=== PATIENT | male | born 1935 | race Caucasian/White ===

== ENCOUNTER 2017-06-13 08:29 | Day surgery (SDC) | payer MEDICARE, OTHER ==
[~2017-06-13 08:29] MED LIST: Lactated Ringers 1,000 ML IV SCH; Lidocaine 1%/Sod Bicarbonate in NS 8.4% 1 ML Syringe PRN; Sodium Chloride 0.9% 10 ML Syringe FLUSH PRN
[2017-06-13] MEDS ORDERED: Propofol 200 MG/20 ML SDV ONE (09:19)
--- NOTE | 2017-06-13 09:29 | PCM.PREANE ---
Preanesthetic Assessment - Anesthesia/Transfusion/Family Hx Anesthesia History: Prior Anesthesia Without Reaction Family History of Anesthesia Reaction: No Transfusion History: No Prior Transfusion(s) Intubation History: Unknown - Review of Systems General: No Symptoms Cardiovascular: No Symptoms Gastrointestinal: No Symptoms Neurological: No Symptoms Other: Reports: Easy Bleeding (pt just fininshed last dose of lovenox yesturday 1100, BS 0700 122) - Physical Assessment NPO Status Date: 06/12/17 NPO Status Time: 20:00 Pulse: 74 O2 Sat by Pulse Oximetry: 96 Respiratory Rate: 16 Blood Pressure: 142/68 Temperature: 98.5 C Height: 1.73 m Weight: 99.337 kg ASA Class: 3 Mental Status: Alert & Oriented x3 Airway Class: Mallampati = 2 Dentition: Reports: Normal Dentition, Dentures (upper and lower) Thyro-Mental Finger Breadths: 3 Mouth Opening Finger Breadths: 3 ROM/Head Extension: Full Lungs: Clear to Auscultation, Normal Respiratory Effort Cardiovascular: Regular Rate, Murmurs - Allergies Allergies/Adverse Reactions: Allergies Allergy/AdvReac Type Severity Reaction Status Date / Time latex Allergy Unknown Cannot Verified 06/12/17 15:04 Remember adhesive Allergy Hives Verified 06/12/17 15:04 celecoxib Allergy Cannot Verified 06/12/17 15:04 Remember ramipril [From Altace] Allergy Itching Verified 06/12/17 15:04 rofecoxib [From Vioxx] Allergy Edema Verified 06/12/17 15:04 sertraline Allergy Cannot Verified 06/12/17 15:04 Remember simvastatin Allergy Edema Verified 06/12/17 15:04 chlordiazepoxide AdvReac Confusion Verified 06/12/17 15:04 clidinium [Clidinium] AdvReac Confusion Verified 06/12/17 15:04 pregabalin [From Lyrica] AdvReac Confusion Verified 06/12/17 15:04 - Anesthesia Plan Beta Nemesio: Metoprolol Med Last Dose Date: 06/12/17 Med Last Dose Time: 07:00 - Acknowledgements Anesthesia Type Planned: MAC Pt an Appropriate Candidate for the Planned Anesthesia: Yes Alternatives and Risks of Anesthesia Discussed w Pt/Guardian: Yes Pt/Guardian Understands and Agrees with Anesthesia Plan: Yes PreAnesthesia Questionnaire HEENT History: Reports: Cataract Other HEENT History: has glasses, wears dentures Cardiovascular History: Reports: Afib, Angina, CAD, Heart Murmur, High Cholesterol, Hypertension, [place], Pacemaker, Other (See Below) (AICD, hx MN 08/23, EKG 09/22 100% paced rhythm) Other Cardiovascular History: pad,chf Respiratory History: Reports: Sleep Apnea, SOB (with exertion) Other Respiratory History: does not use CPAP, has wheezing and history of pneumonia Gastrointestinal History: Reports: Colon Polyp, Hemorrhoids, PUD Other Gastrointestinal History: melanosis of coli, diverticulosis, small bowel obstruction, increased liver enzymes, chavis's esophagus Genitourinary History: Reports: BPH Other Genitourinary History: CHRONIC RENAL INSUFFICIENCY TABLE TOP TILE SETTER History: Reports: None Musculoskeletal History: Reports: Other (See Below) Other Musculoskeletal History: Right elbow olecranon bursitis, rotator cuff tear Neurological History: Reports: 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), Vertigo Psychiatric History: Reports: None Endocrine/Metabolic History: Reports: Diabetes, Type II (BS 122 at 0700) Hematologic History: Reports: None Immunologic History: Reports: None Oncologic (Cancer) History: Reports: Basal Cell Carcinoma Dermatologic History: Reports: Melanoma, Other (See Below) Other Dermatologic History: malignant skin neoplasm, basal cell carcinoma, actinic keratosis, junctional nevus, seborrheic keratosis, hemangioma - Past Surgical History HEENT Surgical History: Reports: Adenoidectomy, Cataract Surgery, Tonsillectomy Other HEENT Surgeries/Procedures: BILATERAL CATARACTS REMOVED, Cardiovascular Surgical History: Reports: AICD, Carotid Stents, Coronary Artery Bypass, Coronary Artery Stent, Pacer Other Cardiovascular Surgeries/Procedures: coronary stent placemement of RCA 02/1995. CABG 1995 (triple vessel). PTCA and stenting of LAD 10/15/03. PTCA with stenting (bare metal) to LAD 10/23/03. PTCA with drug eluding stent to LAD 12/01/03. cardiac catheterization (no intervention) 12/26/03. cardiac catheterization (no intervention) 09/18/05. cardiac catheterization (no intervention) 03/04/07. PTCA with drug eluding stent to LAD 06/16/10. PTCA with stenting (bare metal) to vein graft to R coronary artery 01/31/13. Coronary angioplasty proximal LAD in-stent restenosis with m synergy 09/11/16 GI Surgical History: Reports: Appendectomy, Colonoscopy, EGD Neurological Surgical History: Reports: Other (See Below) Other Neurological Surgeries/Procedures: PT REPORTS 2X BACK SURGERIES ONCE TO THORACIC, ONCE TO LUMBAR Musculoskeletal Surgical History: Reports: Shoulder Surgery Other Musculoskeletal Surgeries/Procedures:: bilateral rotator cuff tears and repairs (different times) Other Oncologic Surgeries/Procedures: MELANOMA OF BACK - EXCISED Dermatological Surgical History: Reports: Skin Biopsy - SUBSTANCE USE Smoking Status *Q: Former Smoker Tobacco Use Within Last Twelve Months: No Second Hand Smoke Exposure: No Days Per Week of Alcohol Use: 0 Recreational Drug Use History: No - HOME MEDS Home Medications: Home Meds Chromium Picolinate 200 mcg PO DAILY 06/27/15 [History] Digoxin [Lanoxin] 125 mcg PO DAILY 06/27/15 [History] Diltiazem HCl [Diltiazem 24Hr ER] 240 mg PO DAILY 06/27/15 [History] Furosemide [Lasix] 40 mg PO DAILY 06/27/15 [History] Glimepiride [Amaryl] 4 mg PO DAILY 06/27/15 [History] Insulin Glarg,Human.Rec.Analog [LantUS Solostar] 75 units SUBCUT DAILY 06/27/15 [History] Metoprolol Succinate [Toprol XL] 100 mg PO BID 06/27/15 [History] Omeprazole 20 mg PO BID 06/27/15 [History] Cholecalciferol (Vitamin D3) [Vitamin D3] 1,000 unit PO DAILY 02/25/16 [History] Flaxseed Oil [Flaxseed] 1,000 mg PO DAILY 09/08/16 [History] Loratadine [Claritin] 10 mg PO DAILY 09/08/16 [History] Nitroglycerin [Nitrostat] 0.4 mg SL Q5M PRN 09/08/16 [History] Warfarin [Coumadin] 5 mg PO MO 09/08/16 [History] Antiivia 2 tab PO DAILY 06/12/17 [History] Clopidogrel Bisulfate [Plavix] 75 mg PO DAILY 06/12/17 [History] Cyanocobalamin (Vitamin B-12) [Vitamin B-12] 1,000 mcg PO DAILY 06/12/17 [ History] Ferrous Sulfate [Iron] 325 mg PO DAILY 06/12/17 [History] Isosorbide Mononitrate [Imdur] 60 mg PO DAILY 06/12/17 [History] Pyridoxine HCl [Vitamin B-6] 100 mg PO DAILY 06/12/17 [History] Terazosin HCl [Terazosin] 5 mg PO QAM 06/12/17 [History] Terazosin HCl [Terazosin] 10 mg PO QPM 06/12/17 [History] Turmeric Root Extract [Turmeric] 500 mg PO DAILY 06/12/17 [History] Valsartan 160 mg PO DAILY 06/12/17 [History] Warfarin [Coumadin] 2.5 mg PO SUTUWETHFRSA 06/12/17 [History] atorvaSTATin [Lipitor] 40 mg PO DAILY 06/12/17 [History] - CURRENT (IN HOUSE) MEDS Current Meds: Current Medications Lactated Ringer's (Ringers, Lactated) 1,000 mls @ 125 mls/hr IV ASDIRECTED REAL Stop: 06/13/17 23:00 Last Admin: 06/13/17 09:00 Dose: 125 mls/hr Lidocaine/Sodium Bicarbonate (Buffered Lidocaine 1% In Ns 8.4%) 0.25 ml .XX ONETIME PRN PRN Reason: Prior to IV Start Stop: 06/13/17 18:00 Last Admin: 06/13/17 08:59 Dose: 0.25 ml Sodium Chloride (Saline Flush) 10 ml FLUSH ASDIRECTED PRN PRN Reason: Keep Vein Open Stop: 06/13/17 18:00 Discontinued Medications Propofol (Diprivan 20 Ml) Confirm Administered Dose 200 mg .ROUTE .STK-MED ONE Stop: 06/13/17 09:20
--- NOTE | 2017-06-13 10:02 | PCM48HPAN ---
Post Anesthesia Note - EVALUATION WITHIN 48HRS OF ANESTHETIC Vital Signs in Normal Range: Yes Patient Participated in Evaluation: Yes Respiratory Function Stable: Yes Airway Patent: Yes Cardiovascular Function Stable: Yes Hydration Status Stable: Yes Pain Control Satisfactory: Yes Nausea and Vomiting Control Satisfactory: Yes Mental Status Recovered: Yes - COMMENTS/OBSERVATIONS Free Text/Narrative:: pt resting quietly, VVS, family at bedside, no c/o
[2017-06-13 10:04] VITALS: BP 126/66
--- NOTE | 2017-06-13 10:13 | PCM.OPNOTE ---
- General Post-Op/Procedure Note Date of Surgery/Procedure: 06/13/17 Operative Procedure(s): Esophagogastroduodenoscopy with cold forceps biopsy of a polypoid antral mass lesion Findings: 2 cm polypoid villous-like mass lesion located in the prepyloric area, no ulcers were seen. There was no endoscopic Knox's change. Pre Op Diagnosis: History of gastric polyps and Knox's change Post-Op Diagnosis: 1. Antral polyp. 2. Endoscopically normal esophagus Anesthesia Technique: MAC, Moderate Sedation Primary Surgeon: Freddie Pepper Pathology: Biopsy 2 of the antrum. EBL in mLs: 1 Complications: None Condition: Good Free Text/Narrative:: After adequate IV sedation and analgesia was obtained with monitoring the patient was placed on his left side. Through a bite-block lubricated upper endoscope was easily inserted into the esophagus and advanced under direct vision to the stomach. Air was given here followed by advancement towards the antrum. Within the distal antrum just proximal to the pyloric opening there was a villoous like polypoid mass structure about 2 x 2 cm in diameter. The scope was then passed through the pylorus into the second part of the duodenum. The second and first parts of the duodenum were endoscopically normal with no mass lesions or inflammatory changes seen. The scope was then withdrawn into the antrum where 2 biopsies were performed for histologic evaluation. In the retroflexed view the fundus and cardiac regions were normal. There was no hiatal hernia. There were no additional polyps seen in the body of the stomach. The rugal folds were grossly normal. Gastric motility was grossly normal as well. I withdrew the scope to the GE junction which was sharp. There was no endoscopic evidence of Knox's epithelium. The body of the esophagus was unremarkable. The vocal cords were briefly visualized with intubation and extubation and were grossly normal. Liquor Store Manager photographs were taken for the patient and for the record. There were no procedural complications.
== END 2017-06-13 10:30 | disposition home or self-care (01) ==
LOC: JD.SDS 08:29
PROVIDERS: ATTEND Surgery
DX: K31.7 Polyp of stomach and duodenum (principal); N40.0 Benign prostatic hyperplasia without lower urinary tract symptoms; I25.10 Atherosclerotic heart disease of native coronary artery without angina pectoris; I48.91 Unspecified atrial fibrillation; I25.2 Old myocardial infarction; E78.00 Pure hypercholesterolemia, unspecified; G47.30 Sleep apnea, unspecified; I13.0 Hypertensive heart and chronic kidney disease with heart failure and stage 1 through stage 4 chronic kidney disease, or unspecified chronic kidney disease; E11.22 Type 2 diabetes mellitus with diabetic chronic kidney disease; N18.9 Chronic kidney disease, unspecified; I50.9 Heart failure, unspecified; Z79.01 Long term (current) use of anticoagulants; Z79.02 Long term (current) use of antithrombotics/antiplatelets; Z79.84 Long term (current) use of oral hypoglycemic drugs; Z79.4 Long term (current) use of insulin; Z79.899 Other long term (current) drug therapy; Z85.820 Personal history of malignant melanoma of skin; Z86.73 Personal history of transient ischemic attack (TIA), and cerebral infarction without residual deficits; Z95.810 Presence of automatic (implantable) cardiac defibrillator; Z95.1 Presence of aortocoronary bypass graft; Z95.5 Presence of coronary angioplasty implant and graft; Z98.41 Cataract extraction status, right eye; Z98.42 Cataract extraction status, left eye; Z90.49 Acquired absence of other specified parts of digestive tract; Z98.890 Other specified postprocedural states; Z88.6 Allergy status to analgesic agent; Z88.8 Allergy status to other drugs, medicaments and biological substances; Z91.040 Latex allergy status; Z91.048 Other nonmedicinal substance allergy status; Z86.010 Personal history of colon polyps; Z87.891 Personal history of nicotine dependence
CPT/HCPCS: 43239; 88305; J7120; 00740; J2704

== ENCOUNTER 2017-11-15 09:03 | Emergency (ER) | payer MEDICARE, OTHER ==
--- NOTE | 2017-11-15 09:34 | EDM.PDOC ---
ED HPI GENERAL MEDICAL PROBLEM - General Chief Complaint: Chest Pain Stated Complaint: CHEST PAIN Time Seen by Provider: 11/15/17 09:29 Source of Information: Reports: Patient History Limitations: Reports: No Limitations - History of Present Illness INITIAL COMMENTS - FREE TEXT/NARRATIVE: 82-year-old male presents to the ED at the request of [facility]. Patient went to the clinic this morning to have dermatology review of his skin lesion that was removed from his nose 6 months ago. He had to have skin grafting performed right lateral nasal alae for removal of a squamous cell carcinoma. He was worried about getting to his appointment this morning. Worried about oncoming snowstorm and whether the doctor would even get here from [place] etc. Usually the chest pain has gotten better after eating with burping and belching but this morning it was more stubborn and would not get better. He therefore elected to take a nitroglycerin tablet at about 7:45 and sat down for a period of time. He states the pain went away within 3-4 minutes. He therefore then proceeded onto the garage into the car and went to the clinic. However he mentioned that he had chest pain this morning and the nurses then referred him to the outpatient walk-in clinic at which case he was properly sent to the ED for further evaluation. He states he has very slight central chest discomfort now.. Unfortunately the patient has a pacemaker that places his heart ventricularly and therefore the ECG is useless in terms of looking for ischemic changes. He states otherwise he feels no worse than normal. He did indicate that they would see him after words if his heart checked out okay. Onset: Today Onset Date: 11/15/17 Onset Time: 07:30 Duration: Minutes: (Took a nitroglycerin tablet under his tongue and sat down afterwards as it struck his blood pressure severely in the past. States within 3 -4 minutes of taking the tablet which was about 7:45 his pain went away. It has not returned), Resolved Prior to Arrival Location: Reports: Chest (Central chest discomfort.) Quality: Reports: Ache, Pressure Improves with: Reports: Medication (Nitroglycerin tablet 1 to the pain went completely) Context: Reports: Other (These developing chest pain after eating every morning suggesting cardiac steal phenomenon.). Denies: Activity, Exercise, Sick Contact , Trauma Associated Symptoms: Reports: No Other Symptoms Treatments MEAT SELECTOR: Reports: Other (see below) (Nitroglycerin tablet 1.) Chest Pain Score (Numeric/FACES): 2 - Related Data Allergies Allergy/AdvReac Type Severity Reaction Status Date / Time latex Allergy Unknown Cannot Verified 11/15/17 09:43 Remember adhesive Allergy Hives Verified 11/15/17 09:43 celecoxib Allergy Cannot Verified 11/15/17 09:43 Remember clopidogrel Allergy Cannot Verified 11/15/17 09:43 Remember ramipril [From Altace] Allergy Itching Verified 11/15/17 09:43 rofecoxib [From Vioxx] Allergy Edema Verified 11/15/17 09:43 sertraline Allergy Cannot Verified 11/15/17 09:43 Remember simvastatin Allergy Edema Verified 11/15/17 09:43 valsartan Allergy Cannot Verified 11/15/17 09:43 Remember chlordiazepoxide AdvReac Confusion Verified 11/15/17 09:43 clidinium [Clidinium] AdvReac Confusion Verified 11/15/17 09:43 pregabalin [From Lyrica] AdvReac Confusion Verified 11/15/17 09:43 Home Meds: Home Meds Chromium Picolinate 200 mcg PO DAILY 06/27/15 [History] Digoxin [Lanoxin] 125 mcg PO DAILY 06/27/15 [History] Diltiazem HCl [Diltiazem 24Hr ER] 240 mg PO DAILY 06/27/15 [History] Furosemide [Lasix] 40 mg PO DAILY 06/27/15 [History] Glimepiride [Amaryl] 4 mg PO DAILY 06/27/15 [History] Insulin Glarg,Human.Rec.Analog [LantUS Solostar] 80 units SUBCUT DAILY 06/27/15 [History] Metoprolol Succinate [Toprol XL] 100 mg PO BID 06/27/15 [History] Omeprazole 20 mg PO BID 06/27/15 [History] Cholecalciferol (Vitamin D3) [Vitamin D3] 1,000 unit PO DAILY 02/25/16 [History] Flaxseed Oil [Flaxseed] 1,000 mg PO DAILY 09/08/16 [History] Loratadine [Claritin] 10 mg PO DAILY 09/08/16 [History] Nitroglycerin [Nitrostat] 0.4 mg SL Q5M PRN 09/08/16 [History] Warfarin [Coumadin] 5 mg PO MO 09/08/16 [History] Antiivia 2 tab PO DAILY 06/12/17 [History] Cyanocobalamin (Vitamin B-12) [Vitamin B-12] 500 mcg PO DAILY 06/12/17 [History] Isosorbide Mononitrate [Imdur] 60 mg PO DAILY 06/12/17 [History] Terazosin HCl [Terazosin] 5 mg PO QAM 06/12/17 [History] Valsartan 160 mg PO DAILY 06/12/17 [History] Warfarin [Coumadin] 2.5 mg PO SUTUWETHFRSA 06/12/17 [History] atorvaSTATin [Lipitor] 40 mg PO DAILY 06/12/17 [History] Multivit-Min/FA/Lutein/Zeaxant [Macular Vitamin Tablet] 1 tab PO DAILY 11/15/17 [History] Past Medical History HEENT History: Reports: Cataract Other HEENT History: has glasses, wears dentures Cardiovascular History: Reports: Afib, Angina, CAD (He believes his last stent was placed by Dr. Mayo at [facility] September 2016. Prior to that he believes stents were placed in 2012.), Heart Murmur, High Cholesterol, Hypertension, [place], Pacemaker, Other (See Below) Other Cardiovascular History: pad,chf Respiratory History: Reports: Sleep Apnea, SOB Other Respiratory History: does not use CPAP, has wheezing and history of pneumonia Gastrointestinal History: Reports: Colon Polyp, Hemorrhoids, PUD Other Gastrointestinal History: melanosis of coli, diverticulosis, small bowel obstruction, increased liver enzymes, chavis's esophagus Genitourinary History: Reports: BPH Other Genitourinary History: CHRONIC RENAL INSUFFICIENCY DAIRY SPECIALIST History: Reports: None Musculoskeletal History: Reports: Other (See Below) Other Musculoskeletal History: Right elbow olecranon bursitis, rotator cuff tear Neurological History: Reports: CVA, Vertigo Psychiatric History: Reports: None Endocrine/Metabolic History: Reports: Diabetes, Type II (He is controlled with oral medications and 80 units of Lantus subcutaneous every morning. He does not use any regular insulin with meals.) Hematologic History: Reports: None Immunologic History: Reports: None Oncologic (Cancer) History: Reports: Basal Cell Carcinoma Dermatologic History: Reports: Melanoma, Other (See Below) Other Dermatologic History: malignant skin neoplasm, basal cell carcinoma, actinic keratosis, junctional nevus, seborrheic keratosis, hemangioma - Past Surgical History HEENT Surgical History: Reports: Adenoidectomy, Cataract Surgery, Tonsillectomy Other HEENT Surgeries/Procedures: BILATERAL CATARACTS REMOVED, Cardiovascular Surgical History: Reports: AICD, Carotid Stents, Coronary Artery Bypass, Coronary Artery Stent, Pacer Other Cardiovascular Surgeries/Procedures: coronary stent placemement of RCA 02/1995. CABG 1995 (triple vessel). PTCA and stenting of LAD 10/15/03. PTCA with stenting (bare metal) to LAD 10/23/03. PTCA with drug eluding stent to LAD 12/01/03. cardiac catheterization (no intervention) 12/26/03. cardiac catheterization (no intervention) 09/18/05. cardiac catheterization (no intervention) 03/04/07. PTCA with drug eluding stent to LAD 06/16/10. PTCA with stenting (bare metal) to vein graft to R coronary artery 01/31/13. Coronary angioplasty proximal LAD in-stent restenosis with m synergy 09/11/16 GI Surgical History: Reports: Appendectomy, Colonoscopy, EGD Neurological Surgical History: Reports: Other (See Below) Other Neurological Surgeries/Procedures: PT REPORTS 2X BACK SURGERIES ONCE TO THORACIC, ONCE TO LUMBAR Musculoskeletal Surgical History: Reports: Shoulder Surgery Other Musculoskeletal Surgeries/Procedures:: bilateral rotator cuff tears and repairs (different times) Other Oncologic Surgeries/Procedures: MELANOMA OF BACK - EXCISED Dermatological Surgical History: Reports: Skin Biopsy Social & Family History - Tobacco Use Smoking Status *Q: Former Smoker Years of Tobacco use: 19 Packs/Tins Daily: 2 Used Tobacco, but Quit: Yes Month Tobacco Last Used: 15 Second Hand Smoke Exposure: No - Caffeine Use Caffeine Use: Reports: Coffee - Alcohol Use Days Per Week of Alcohol Use: 0 - Recreational Drug Use Recreational Drug Use: No Drug Use in Last 12 Months: No - Living Situation & Occupation Living situation: Reports: (His 83-year-old is at home and is developing quite significant dementia at this time. He is therefore doing most of care and cooking.), with Spouse Occupation: Retired ED ROS GENERAL - Review of Systems Review Of Systems: See Below Constitutional: Reports: Malaise, Weakness, Fatigue. Denies: Fever, Chills, Decreased Appetite, Weight Loss HEENT: Reports: Glasses, Hearing Loss Respiratory: Reports: Shortness of Breath (Has known COPD.), Cough. Denies: Hemoptysis (Occasional cough with sputum production) Cardiovascular: Reports: Chest Pain, Blood Pressure Problem (See history of present illness), Dyspnea on Exertion (Chronically in his lower extremities chronically.), Edema. Denies: Claudication ( usually well-controlled with current medications), Lightheadedness, Orthopnea Endocrine: Reports: Fatigue GI/Abdominal: Reports: Constipation : Reports: Frequency, Other (Known BPH. Nocturia usually 3) Musculoskeletal: Reports: Back Pain, Joint Pain (Knees hips and neck at times) Skin: Reports: Bruising (Bruises easily as he is on Coumadin.) Neurological: Reports: Dizziness, Difficulty Walking (Usually walks). Denies: Paresthesia, Tremors (Occasional dizziness.), Trouble Speaking Psychiatric: Reports: No Symptoms ( slowly with wide-based gait. Often uses a cane or walker.) Hematologic/Lymphatic: Reports: No Symptoms Immunologic: Reports: No Symptoms ED EXAM, GENERAL - Physical Exam Exam: See Below Exam Limited By: No Limitations General Appearance: Alert, WD/WN, No Apparent Distress Eye Exam: Bilateral Eye: Normal Inspection Head: Atraumatic, Normocephalic Neck: Normal Inspection, Supple, Non-Tender, Limited Range of Motion. No: Lymphadenopathy (L), Lymphadenopathy (R), Thyromegaly Respiratory/Chest: Lungs Clear, Respiratory Distress (Mild tachypnea at rest.), Decreased Breath Sounds (Decreased air into the lower 25% of lungs posteriorly.) Cardiovascular: Regular Rate, Rhythm (100% ventricular paced rhythm at 75/m.), No Gallop, No Murmur, No Rub. No: Normal Peripheral Pulses (No pulses are palpable in his feet due to edema) Peripheral Pulses: 0: Posterior Tibial (L), Posterior Tibial (R), Dorsalis Pedis (L), Dorsalis Pedis (R) GI/Abdominal: Other (Abdomen is quite protuberant and obese. Slightly tympanitic percussion in the upper abdomen compatible with aerophagia. No obvious organomegaly or masses were palpable.) Extremities: Pedal Edema Neurological: Alert (2+ pitting edema to mid tib-fib bilaterally), Oriented, CN II-XII Intact, Normal Cognition Psychiatric: Normal Affect, Normal Mood Skin Exam: Warm, Dry, Intact, Normal Color, No Rash EKG INTERPRETATION EKG Date: 11/15/17 Time: 09:13 Rhythm: Other (Ventricular paced rhythm) Rate (Beats/Min): 75 EKG Interpretation Comments: No further analysis attempted due to ventricular paced rhythm. Course - Vital Signs Last Recorded V/S: Last Vital Signs Temp 36.4 C 11/15/17 09:13 Pulse 75 11/15/17 09:13 Resp 22 H 11/15/17 09:13 BP Pulse Ox 95 11/15/17 09:13 - Orders/Labs/Meds Orders: Active Orders 24 hr Category Date Time Status EKG 12 Lead [EKG Documentation Completion] [] STAT Care 11/15/17 09:13 Active Oxygen Therapy [RC] ASDIRECTED Care 11/15/17 10:58 Active Furosemide [Lasix] Med 11/15/17 11:07 Once 40 mg IVPUSH NOW ONE Nitroglycerin/D5W [Nitroglycerin 25 MG/D5W 250 ML] Med 11/15/17 10:45 Active 25 mg in 250 ml IV ASDIRECTED Medication Orders Nitroglycerin/Dextrose (Nitroglycerin 25 Mg/D5w 250 Ml) 25 mg in 250 mls @ 6 mls/hr IV ASDIRECTED REAL PRN Reason: 10 MCG/MIN Last Admin: 11/15/17 10:51 Dose: 10 mcg/min, 6 mls/hr Labs: Laboratory Tests 11/15/17 11/15/17 11/15/17 Range/Units 09:45 09:45 09:45 WBC 7.09 (4.23-9.07) K/mm3 RBC 3.12 L (4.63-6.08) M/mm3 Hgb 9.2 L (13.7-17.5) gm/L Hct 29.3 L (40.1-51.0) % MCV 93.9 H (79.0-92.2) fl MCH 29.5 (25.7-32.2) pg MCHC 31.4 L (32.2-35.5) g/dl RDW Std Deviation 57.4 H (35.1-43.9) fL Plt Count 144 L (163-337) K/mm3 MPV 10.7 (9.4-12.3) fl Neutrophils % (Manual) 69 H (40-60) % Band Neutrophils % 0 (0-10) % Lymphocytes % (Manual) 28 (20-40) % Atypical Lymphs % 0 % Monocytes % (Manual) 3 (2-10) % Eosinophils % (Manual) 0 L (0.8-7.0) % Basophils % (Manual) 0 L (0.2-1.2) Platelet Estimate Adequate Polychromasia 1+ slight Poikilocytosis 1+ slight Anisocytosis 1+ slight Tear Drop Cells Few RBC Morph Comment Not Reportable PT (8.0-13.0) SECONDS INR Sodium 137 (136-145) mEq/L Potassium 4.6 (3.5-5.1) mEq/L Chloride 103 (98-107) mEq/L Carbon Dioxide 24 (21-32) mEq/L Anion Gap 14.6 (5-15) BUN 29 H (7-18) mg/dL Creatinine 1.5 H (0.7-1.3) mg/dL Est Cr Clr Drug Dosing 35.47 mL/min Estimated GFR (MDRD) 45 (>60) mL/min BUN/Creatinine Ratio 19.3 H (14-18) Glucose 372 H (83-115) mg/dL Calcium 9.0 (8.5-10.1) mg/dL Magnesium 2.0 (1.8-2.4) mg/dl Total Bilirubin 0.9 (0.2-1.0) mg/dL AST 33 (15-37) U/L ALT 28 (16-63) U/L Alkaline Phosphatase 101 (46-116) U/L CK-MB (CK-2) 4.3 H (0-3.6) ng/ml Troponin I 0.420 H* (0.00-0.056) ng/mL NT-Pro-B Natriuret Pep 2133 H (0-450) pg/mL Total Protein 6.8 (6.4-8.2) g/dl Albumin 3.5 (3.4-5.0) g/dl Globulin 3.3 gm/dL Albumin/Globulin Ratio 1.1 (1-2) Digoxin (0.9-2.0) ng/mL 11/15/17 11/15/17 Range/Units 09:45 09:45 WBC (4.23-9.07) K/mm3 RBC (4.63-6.08) M/mm3 Hgb (13.7-17.5) gm/L Hct (40.1-51.0) % MCV (79.0-92.2) fl MCH (25.7-32.2) pg MCHC (32.2-35.5) g/dl RDW Std Deviation (35.1-43.9) fL Plt Count (163-337) K/mm3 MPV (9.4-12.3) fl Neutrophils % (Manual) (40-60) % Band Neutrophils % (0-10) % Lymphocytes % (Manual) (20-40) % Atypical Lymphs % % Monocytes % (Manual) (2-10) % Eosinophils % (Manual) (0.8-7.0) % Basophils % (Manual) (0.2-1.2) Platelet Estimate Polychromasia Poikilocytosis Anisocytosis Tear Drop Cells RBC Morph Comment PT 26.4 H (8.0-13.0) SECONDS INR 2.30 Sodium (136-145) mEq/L Potassium (3.5-5.1) mEq/L Chloride (98-107) mEq/L Carbon Dioxide (21-32) mEq/L Anion Gap (5-15) BUN (7-18) mg/dL Creatinine (0.7-1.3) mg/dL Est Cr Clr Drug Dosing mL/min Estimated GFR (MDRD) (>60) mL/min BUN/Creatinine Ratio (14-18) Glucose (83-115) mg/dL Calcium (8.5-10.1) mg/dL Magnesium (1.8-2.4) mg/dl Total Bilirubin (0.2-1.0) mg/dL AST (15-37) U/L ALT (16-63) U/L Alkaline Phosphatase (46-116) U/L CK-MB (CK-2) (0-3.6) ng/ml Troponin I (0.00-0.056) ng/mL NT-Pro-B Natriuret Pep (0-450) pg/mL Total Protein (6.4-8.2) g/dl Albumin (3.4-5.0) g/dl Globulin gm/dL Albumin/Globulin Ratio (1-2) Digoxin 1.0 (0.9-2.0) ng/mL Meds: Medications Generic Name Dose Route Start Last Admin Trade Name Freq PRN Reason Stop Dose Admin Nitroglycerin/Dextrose 25 mg in 250 mls @ 6 mls/hr 11/15/17 10:45 11/15/17 10 :51 Nitroglycerin 25 Mg/D5w 250 Ml IV 10 mcg/min ASDIRECTED REAL 6 mls/hr 10 MCG/MIN Administration Discontinued Medications Generic Name Dose Route Start Last Admin Trade Name Freq PRN Reason Stop Dose Admin Aspirin 324 mg 11/15/17 10:56 Aspirin PO 11/15/17 10:57 ONETIME ONE Insulin Human Regular 10 unit 11/15/17 10:56 Humulin R SUBCUT 11/15/17 10:57 ONETIME ONE - Radiology Interpretation Free Text/Narrative:: 82-year-old male who is developing unstable angina but has a known severe coronary disease problem. Chest pain lasted a bit longer and was a little more intense this morning that he took a nitroglycerin tablet about 7:45 which relieved the pain completely within 3-4 minutes. He then proceeded to his proposed dermatology clinic visit at [place]. When he mentioned that he had chest pain earlier this morning base probably sent him to the walk-in clinic. Walking clinic probably send him to the ED. History suggests that he does have unstable angina with coronary steal syndrome as he develops mild chest discomfort after eating breakfast every morning. This is the first time that he' s taken a nitroglycerin tablet however. He does admit that he was more anxious about his appointment this morning getting there on time. Worried about the oncoming storm today. Wondered if the doctor would even get here from [place] etc. At any rate the nitroglycerin tablet with his chest pain away within 3-4 minutes. Usually lie sitting down for a period of time and burping or belching a couple of times and take his chest pain away. That did not work this morning. ECG shows ventricular paced rhythm at 75/m. Therefore labs and chest x-ray to one view will be done. At present he has only very slight anterior chest discomfort. - Re-Assessments/Exams Free Text/Narrative Re-Assessment/Exam: 11/15/17 10:05: Chest x-ray done portably reveals marked cardiomegaly. There is a diffuse vascular congestion pattern. No pleural effusions. Expect present left upper anterior chest. Labs are pending. 11/15/17 10:34 Labs are back. White count is 7.09 with 69% neutrophils and no bands reported. Hemoglobin is low at 9.2 with hematocrit of 29.3. MCV is minimally elevated at 93.9. Platelets are normal at 144,000. PT is 26.4 with an INR of 2.30 considered therapeutic. Sodium is 137 with a potassium of 4.6. Chloride is 103 with a bicarbonate 24. And a gap is 14.6. BUN is 29 with a creatinine of 1.5. Glucose is elevated at 372. Calcium is 9.0 magnesium is 2.0 bilirubin is 0.9. AST is 33. ALT is 20. Alk phosphatase 101. CK-MB fraction is 4.3 slightly elevated. Troponin I is elevated at 0.4-0. Normal MR lab is up to 0.056. Digoxin is therapeutic at 1.0. Plan we'll start on low-dose nitro drip at 10 mcg/m. blood pressure will be closely watched. It is currently 126 on 57. I'm still waiting for his BNP. He will be given aspirin 324 mg chewed. I will discuss with him his insulin requirements as his glucoses 372 at present. Further history obtained from the patient indicates that he was on Plavix up until October 22 when decision was made that this medication could be discontinued. He does take a baby aspirin usually in the evenings before bed. He states his sugars are usually between 110 150 therefore elevated blood sugar 372 was quite a surprise to him. This indicates a stress response likely from recent myocardial infarction. 11/15/17 10:57 spoke with hospitalist--Dr Masters at [facility] and he has accepted care. Patient will be transported to that facility by ground ambulance. I will also place him on low-dose oxygen 2 L/m since he sats 100 from 91-94% on room air. 11/15/17 11:07 magnesium level came back at 2.0. BNP is elevated at 2133. Will be given Lasix 40 mg intravenously. The elevated BNP correlates with diffuse vascular congestion identified on chest x-ray. Will give him 10 units of regular insulin subcutaneous for elevated glucose of 372. Departure - Departure Time of Disposition: 11:11 Disposition: DC/Tfer to Acute Hospital 02 Reason for Transfer *Q: Primary PCI Indicated Condition: Fair Clinical Impression: Chronic atrial fibrillation Acute myocardial infarction Qualifiers: Myocardial infarction ST status: non-ST elevation myocardial infarction Qualified Code(s): I21.4 - Non-ST elevation (NSTEMI) myocardial infarction Acute on chronic congestive heart failure Qualifiers: Congestive heart failure type: diastolic Qualified Code(s): I50.33 - Acute on chronic diastolic (congestive) heart failure Type 2 diabetes mellitus with hyperglycemia Qualifiers: Diabetes mellitus fdc insulin use: with parts counterman use Qualified Code(s): E11.65 - Type 2 diabetes mellitus with hyperglycemia; Z79.4 - FCI (current ) use of insulin; Z79.4 - FCI (current) use of insulin; Z79.4 - buttermaker (current) use of insulin; Z79.4 - FCI (current) use of insulin Anemia Qualifiers: Anemia type: unspecified type Qualified Code(s): D64.9 - Anemia, unspecified Referrals: Ganesh Luo MD [Primary Care Provider] - Forms: ED Department Discharge - My Orders Last 24 Hours: My Active Orders 11/15/17 09:13 EKG 12 Lead [EKG Documentation Completion] [RC] STAT 11/15/17 10:45 Nitroglycerin/D5W [Nitroglycerin 25 MG/D5W 250 ML] 25 mg in 250 ml IV ASDIRECTED 11/15/17 10:58 Oxygen Therapy [RC] ASDIRECTED 11/15/17 11:07 Furosemide [Lasix] 40 mg IVPUSH NOW ONE - Assessment/Plan Last 24 Hours: My Active Orders 11/15/17 09:13 EKG 12 Lead [EKG Documentation Completion] [RC] STAT 11/15/17 10:45 Nitroglycerin/D5W [Nitroglycerin 25 MG/D5W 250 ML] 25 mg in 250 ml IV ASDIRECTED 11/15/17 10:58 Oxygen Therapy [RC] ASDIRECTED 11/15/17 11:07 Furosemide [Lasix] 40 mg IVPUSH NOW ONE
--- NOTE | 2017-11-15 10:12 | CR ---
Chest: Frontal view of the chest was obtained. Comparison: Previous portable chest x-ray of 09/08/16. Heart is enlarged. Mild tortuosity of the thoracic aorta is seen. Sternotomy wires are seen. Pacemaker is noted. Lungs are clear. Bony structures are grossly intact. Previous resection of the distal right clavicle is incidentally noted. Impression: 1. Mild cardiomegaly and other stable findings. Nothing acute is seen. Diagnostic code #2
[2017-11-15] MEDS ORDERED: Nitroglycerin/D5W 25 MG/250 ML BOTTLE IV SCH (10:45)
[2017-11-15] MEDS ORDERED: Insulin Regular, Human 100 Units/ML 3 ML Vial SUBCUT ONE (10:56)
[2017-11-15] MEDS ORDERED: Aspirin 81 MG Tab.Chew PO ONE (10:56)
[2017-11-15] MEDS ORDERED: Furosemide 40 MG/4 ML VIAL IVPUSH ONE (11:07)
== END 2017-11-15 11:45 ==
LOC: JD.ED 09:03
DX: I21.4 Non-ST elevation (NSTEMI) myocardial infarction (principal); I13.0 Hypertensive heart and chronic kidney disease with heart failure and stage 1 through stage 4 chronic kidney disease, or unspecified chronic kidney disease; I50.33 Acute on chronic diastolic (congestive) heart failure; N18.9 Chronic kidney disease, unspecified; I48.2 Chronic atrial fibrillation; E11.65 Type 2 diabetes mellitus with hyperglycemia; E11.22 Type 2 diabetes mellitus with diabetic chronic kidney disease; I25.10 Atherosclerotic heart disease of native coronary artery without angina pectoris; Z79.4 Long term (current) use of insulin; D64.9 Anemia, unspecified; Z91.040 Latex allergy status; Z88.8 Allergy status to other drugs, medicaments and biological substances; Z79.899 Other long term (current) drug therapy; Z79.01 Long term (current) use of anticoagulants; Z95.5 Presence of coronary angioplasty implant and graft; Z95.810 Presence of automatic (implantable) cardiac defibrillator
CPT/HCPCS: 36415; 71045; 80053; 80162; 82553; 83735; 83880; 84484; 85025; 85610; 93005; 96365; 96372; 96375; 99285; A9270; J1817; J1940; 93010; J1815

== ENCOUNTER 2017-12-12 08:48 | Emergency (ER) | payer MEDICARE, OTHER ==
[2017-12-12 09:00] VITALS: BP 147/53
--- NOTE | 2017-12-12 09:30 | EDM.PDOC ---
ED HPI GENERAL MEDICAL PROBLEM - General Chief Complaint: ENT Problem Stated Complaint: BLOODY NOSE Time Seen by Provider: 12/12/17 09:04 Source of Information: Reports: Patient, Family () History Limitations: Reports: No Limitations - History of Present Illness INITIAL COMMENTS - FREE TEXT/NARRATIVE: The patient states that he blew his nose when he got up, around 05:30 this morning, and that his left nostril began bleeding when he did so. The patient reports frequent epistaxis, although states that he has never seen an ENT. He states that he has been applying petroleum jelly to his nostrils, but not for the past couple of days. He states that he does have a humidifier in his house. The patient is on both Plavix and Coumadin. He states that his INR was checked about 2 days ago, and was found to be subtherapeutic at 1.58. His Coumadin dose was increased. The patient's PCP is Dr. Luo. - Related Data Allergies Allergy/AdvReac Type Severity Reaction Status Date / Time latex Allergy Unknown Cannot Verified 12/12/17 08:56 Remember adhesive Allergy Hives Verified 12/12/17 08:56 celecoxib Allergy Cannot Verified 12/12/17 08:56 Remember clopidogrel Allergy Cannot Verified 12/12/17 08:56 Remember ramipril [From Altace] Allergy Itching Verified 12/12/17 08:56 rofecoxib [From Vioxx] Allergy Edema Verified 12/12/17 08:56 sertraline Allergy Cannot Verified 12/12/17 08:56 Remember simvastatin Allergy Edema Verified 12/12/17 08:56 valsartan Allergy Cannot Verified 12/12/17 08:56 Remember chlordiazepoxide AdvReac Confusion Verified 12/12/17 08:56 clidinium [Clidinium] AdvReac Confusion Verified 12/12/17 08:56 pregabalin [From Lyrica] AdvReac Confusion Verified 12/12/17 08:56 Home Meds: Home Meds Chromium Picolinate 200 mcg PO DAILY 06/27/15 [History] Digoxin [Lanoxin] 125 mcg PO DAILY 06/27/15 [History] Diltiazem HCl [Diltiazem 24Hr ER] 240 mg PO DAILY 06/27/15 [History] Furosemide [Lasix] 40 mg PO DAILY 06/27/15 [History] Glimepiride [Amaryl] 4 mg PO DAILY 06/27/15 [History] Insulin Glarg,Human.Rec.Analog [LantUS Solostar] 80 units SUBCUT DAILY 06/27/15 [History] Metoprolol Succinate [Toprol XL] 100 mg PO BID 06/27/15 [History] Omeprazole 20 mg PO BID 06/27/15 [History] Cholecalciferol (Vitamin D3) [Vitamin D3] 1,000 unit PO DAILY 02/25/16 [History] Flaxseed Oil [Flaxseed] 1,000 mg PO DAILY 09/08/16 [History] Loratadine [Claritin] 10 mg PO DAILY 09/08/16 [History] Nitroglycerin [Nitrostat] 0.4 mg SL Q5M PRN 09/08/16 [History] Warfarin [Coumadin] 5 mg PO MO 09/08/16 [History] Antiivia 2 tab PO DAILY 06/12/17 [History] Cyanocobalamin (Vitamin B-12) [Vitamin B-12] 500 mcg PO DAILY 06/12/17 [History] Isosorbide Mononitrate [Imdur] 60 mg PO DAILY 06/12/17 [History] Terazosin HCl [Terazosin] 5 mg PO QAM 06/12/17 [History] Valsartan 160 mg PO DAILY 06/12/17 [History] Warfarin [Coumadin] 2.5 mg PO SUTUWETHFRSA 06/12/17 [History] atorvaSTATin [Lipitor] 40 mg PO DAILY 06/12/17 [History] Multivit-Min/FA/Lutein/Zeaxant [Macular Vitamin Tablet] 1 tab PO DAILY 11/15/17 [History] Past Medical History HEENT History: Reports: Cataract Other HEENT History: has glasses, wears dentures Cardiovascular History: Reports: Afib, Angina, CAD, Heart Murmur, High Cholesterol, Hypertension, [place], Pacemaker, Other (See Below) Other Cardiovascular History: pad,chf Respiratory History: Reports: Sleep Apnea, SOB Other Respiratory History: does not use CPAP, has wheezing and history of pneumonia Gastrointestinal History: Reports: Colon Polyp, Hemorrhoids, PUD Other Gastrointestinal History: melanosis of coli, diverticulosis, small bowel obstruction, increased liver enzymes, chavis's esophagus Genitourinary History: Reports: BPH Other Genitourinary History: CHRONIC RENAL INSUFFICIENCY FIELD CARE ADVOCATE History: Reports: None Musculoskeletal History: Reports: Other (See Below) Other Musculoskeletal History: Right elbow olecranon bursitis, rotator cuff tear Neurological History: Reports: CVA, Vertigo Psychiatric History: Reports: None Endocrine/Metabolic History: Reports: Diabetes, Type II Hematologic History: Reports: None Immunologic History: Reports: None Oncologic (Cancer) History: Reports: Basal Cell Carcinoma Dermatologic History: Reports: Melanoma, Other (See Below) Other Dermatologic History: malignant skin neoplasm, basal cell carcinoma, actinic keratosis, junctional nevus, seborrheic keratosis, hemangioma - Past Surgical History HEENT Surgical History: Reports: Adenoidectomy, Cataract Surgery, Tonsillectomy Other HEENT Surgeries/Procedures: BILATERAL CATARACTS REMOVED, Cardiovascular Surgical History: Reports: AICD, Carotid Stents, Coronary Artery Bypass, Coronary Artery Stent, Pacer Other Cardiovascular Surgeries/Procedures: coronary stent placemement of RCA 02/1995. CABG 1995 (triple vessel). PTCA and stenting of LAD 10/15/03. PTCA with stenting (bare metal) to LAD 10/23/03. PTCA with drug eluding stent to LAD 12/01/03. cardiac catheterization (no intervention) 12/26/03. cardiac catheterization (no intervention) 09/18/05. cardiac catheterization (no intervention) 03/04/07. PTCA with drug eluding stent to LAD 06/16/10. PTCA with stenting (bare metal) to vein graft to R coronary artery 01/31/13. Coronary angioplasty proximal LAD in-stent restenosis with m synergy 09/11/16 GI Surgical History: Reports: Appendectomy, Colonoscopy, EGD Neurological Surgical History: Reports: Other (See Below) Other Neurological Surgeries/Procedures: PT REPORTS 2X BACK SURGERIES ONCE TO THORACIC, ONCE TO LUMBAR Musculoskeletal Surgical History: Reports: Shoulder Surgery Other Musculoskeletal Surgeries/Procedures:: bilateral rotator cuff tears and repairs (different times) Other Oncologic Surgeries/Procedures: MELANOMA OF BACK - EXCISED Dermatological Surgical History: Reports: Skin Biopsy Social & Family History - Tobacco Use Smoking Status *Q: Former Smoker Years of Tobacco use: 19 Packs/Tins Daily: 2 Month Tobacco Last Used: 15 Second Hand Smoke Exposure: No - Caffeine Use Caffeine Use: Reports: Coffee - Alcohol Use Days Per Week of Alcohol Use: 0 - Recreational Drug Use Recreational Drug Use: No Drug Use in Last 12 Months: No - Living Situation & Occupation Living situation: Reports: (His 83-year-old is at home and is developing quite significant dementia at this time. He is therefore doing most of care and cooking.), with Spouse Occupation: Retired ED ROS ENT - Review of Systems Review Of Systems: ROS reveals no pertinent complaints other than HPI. ED EXAM, ENT - Physical Exam Exam: See Below Exam Limited By: No Limitations General Appearance: Alert, WD/WN, No Apparent Distress Eye Exam: Bilateral Eye: Normal Inspection Ears: Normal External Exam, Hearing Grossly Normal Nose: Normal Inspection, Normal Mucousa, No Blood, Other (Prominent vessel noted on the left nasal septum, not bleeding.) Mouth/Throat: Normal Inspection, Normal Gums, Normal Lips, Normal Oropharynx ( no oropharyngeal blood), Normal Teeth Head: Atraumatic, Normocephalic Course - Vital Signs Last Recorded V/S: Last Vital Signs Temp 36.1 C 12/12/17 08:56 Pulse 80 12/12/17 08:56 Resp 18 12/12/17 08:56 BP 147/53 H 12/12/17 08:56 Pulse Ox 99 12/12/17 08:56 - Orders/Labs/Meds Orders: Active Orders 24 hr Category Date Time Status CBC WITH MANUAL DIFF [HEME] Stat Lab 12/12/17 09:05 Ordered INR,PT,PROTHROMBIN TIME [COAG] Stat Lab 12/12/17 09:05 Ordered - Re-Assessments/Exams Free Text/Narrative Re-Assessment/Exam: 12/12/17 09:23 The patient presented for left epistaxis, however, when he removed the cotton packing, his nose was no longer bleeding. A prominent vessel was visible. We discussed the option of cauterization, noting that in many cases, cauterization actually causes the nose to bleed. We elected to not cauterize today, however, I will refer the patient to ENT. I recommended that he apply petroleum jelly to each side of his nasal septum. Departure - Departure Time of Disposition: 09:24 Disposition: Home, Self-Care 01 Condition: Good Clinical Impression: Left-sided epistaxis - Discharge Information Referrals: Ganesh Luo MD [Primary Care Provider] - Sae Almaraz MD [Ordering Only Provider] - Additional Instructions: You were seen in the emergency room for a left-sided nosebleed, however, in the ER, your nose had stopped bleeding. If your nose bleeds again, sit upright, tilt your head slightly forward, and pinch or nostrils tightly for 15 minutes. If your nose does not stop bleeding after that, you need to return to the ER. We recommend that you apply a thin smear of petroleum jelly to each side of your nasal septum, at least once a day. We recommend that you follow-up with the Ear, Nose, and Throat (ENT) Dr. Almaraz , for further evaluation. If any other problems, please do not hesitate to return to the ER. - My Orders Last 24 Hours: My Active Orders 12/12/17 09:05 CBC WITH MANUAL DIFF [HEME] Stat INR,PT,PROTHROMBIN TIME [COAG] Stat - Assessment/Plan Last 24 Hours: My Active Orders 12/12/17 09:05 CBC WITH MANUAL DIFF [HEME] Stat INR,PT,PROTHROMBIN TIME [COAG] Stat
== END 2017-12-12 09:45 | disposition home or self-care (01) ==
LOC: JD.ED 08:48
DX: R04.0 Epistaxis (principal); Z87.891 Personal history of nicotine dependence; I13.0 Hypertensive heart and chronic kidney disease with heart failure and stage 1 through stage 4 chronic kidney disease, or unspecified chronic kidney disease; E11.22 Type 2 diabetes mellitus with diabetic chronic kidney disease; N18.9 Chronic kidney disease, unspecified; I50.9 Heart failure, unspecified; Z85.828 Personal history of other malignant neoplasm of skin; Z79.4 Long term (current) use of insulin; Z79.01 Long term (current) use of anticoagulants; Z79.899 Other long term (current) drug therapy; Z88.8 Allergy status to other drugs, medicaments and biological substances; Z91.09 Other allergy status, other than to drugs and biological substances; Z91.040 Latex allergy status
CPT/HCPCS: 99283

== ENCOUNTER 2018-01-12 13:00 | Emergency (ER) | payer MEDICARE, OTHER ==
[2018-01-12] MEDS ORDERED: Sodium Chloride 0.9% 10 ML Syringe FLUSH PRN (14:25)
[2018-01-12] MEDS ORDERED: fentaNYL 100 MCG/2 ML SDV IVPUSH ONE ×2 (14:26→15:59)
[2018-01-12] MEDS ORDERED: Doxycycline 100 MG Cap PO ONE (14:27)
--- NOTE | 2018-01-12 14:48 | EDM.PDOC ---
ED HPI GENERAL MEDICAL PROBLEM - General Chief Complaint: Lower Extremity Injury/Pain Stated Complaint: LEFT LEG PAIN Time Seen by Provider: 01/12/18 13:30 Source of Information: Reports: Patient History Limitations: Reports: No Limitations - History of Present Illness INITIAL COMMENTS - FREE TEXT/NARRATIVE: The patient is an 82-year-old male with a known history of peripheral vascular disease who comes in with gradually worsening left leg pain. The patient has an arterial stent in the left leg that was placed around 11 years ago by a vascular surgeon in [facility]. He states over the past week or 2 she's had worsening pain in the leg and is also noticed that his foot has been cool and painful. He's been followed by his clinic provider for this and has had at least 2 vascular studies completed at [facility] this week. He is not able to provide me the details of these results but has been given the impression that the stent is occluded. Vascular surgery follow-up has been arranged for him but not for an additional 4 days from now. He doesn't think he can wait that long. He's had worsening pain in the leg over the past couple of days. He's also had worsening pain and swelling and redness of his left great toe and is worried about infection. No fevers. He does take warfarin, not sure what his latest INR was. Left Feet Pain Score (Numeric/FACES): 9 - Related Data Allergies Allergy/AdvReac Type Severity Reaction Status Date / Time latex Allergy Unknown Cannot Verified 12/12/17 08:56 Remember adhesive Allergy Hives Verified 12/12/17 08:56 celecoxib Allergy Cannot Verified 12/12/17 08:56 Remember clopidogrel Allergy Cannot Verified 12/12/17 08:56 Remember ramipril [From Altace] Allergy Itching Verified 12/12/17 08:56 rofecoxib [From Vioxx] Allergy Edema Verified 12/12/17 08:56 sertraline Allergy Cannot Verified 12/12/17 08:56 Remember simvastatin Allergy Edema Verified 12/12/17 08:56 valsartan Allergy Cannot Verified 12/12/17 08:56 Remember chlordiazepoxide AdvReac Confusion Verified 12/12/17 08:56 clidinium [Clidinium] AdvReac Confusion Verified 12/12/17 08:56 pregabalin [From Lyrica] AdvReac Confusion Verified 12/12/17 08:56 Home Meds: Home Meds Chromium Picolinate 200 mcg PO DAILY 06/27/15 [History] Digoxin [Lanoxin] 125 mcg PO DAILY 06/27/15 [History] Diltiazem HCl [Diltiazem 24Hr ER] 240 mg PO DAILY 06/27/15 [History] Furosemide [Lasix] 40 mg PO DAILY 06/27/15 [History] Glimepiride [Amaryl] 4 mg PO DAILY 06/27/15 [History] Insulin Glarg,Human.Rec.Analog [LantUS Solostar] 80 units SUBCUT DAILY 06/27/15 [History] Metoprolol Succinate [Toprol XL] 100 mg PO BID 06/27/15 [History] Omeprazole 40 mg PO QAM 06/27/15 [History] Cholecalciferol (Vitamin D3) [Vitamin D3] 1,000 unit PO DAILY 02/25/16 [History] Flaxseed Oil [Flaxseed] 1,000 mg PO DAILY 09/08/16 [History] Nitroglycerin [Nitrostat] 0.4 mg SL Q5M PRN 09/08/16 [History] Warfarin [Coumadin] 5 mg PO TUTHFRSA 09/08/16 [History] Cyanocobalamin (Vitamin B-12) [Vitamin B-12] 500 mcg PO DAILY 06/12/17 [History] Isosorbide Mononitrate [Imdur] 60 mg PO DAILY 06/12/17 [History] Terazosin HCl [Terazosin] 5 mg PO QAM 06/12/17 [History] Valsartan 160 mg PO DAILY 06/12/17 [History] Warfarin [Coumadin] 2.5 mg PO SUMOWE 06/12/17 [History] atorvaSTATin [Lipitor] 40 mg PO DAILY 06/12/17 [History] Multivit-Min/FA/Lutein/Zeaxant [Macular Vitamin Tablet] 1 tab PO DAILY 11/15/17 [History] Antiiva 2 tab PO DAILY 01/12/18 [History] Clopidogrel [Plavix] 75 mg PO DAILY 01/12/18 [History] Omeprazole 20 mg PO QPM 01/12/18 [History] Terazosin HCl [Terazosin] 10 mg PO BEDTIME 01/12/18 [History] Past Medical History HEENT History: Reports: Cataract Other HEENT History: has glasses, wears dentures Cardiovascular History: Reports: Afib, Angina, CAD, Heart Murmur, High Cholesterol, Hypertension, [place], Pacemaker, Other (See Below) Other Cardiovascular History: pad,chf Respiratory History: Reports: Sleep Apnea, SOB Other Respiratory History: does not use CPAP, has wheezing and history of pneumonia Gastrointestinal History: Reports: Colon Polyp, Hemorrhoids, PUD Other Gastrointestinal History: melanosis of coli, diverticulosis, small bowel obstruction, increased liver enzymes, chavis's esophagus Genitourinary History: Reports: BPH Other Genitourinary History: CHRONIC RENAL INSUFFICIENCY CUFF FOLDER History: Reports: None Musculoskeletal History: Reports: Other (See Below) Other Musculoskeletal History: Right elbow olecranon bursitis, rotator cuff tear Neurological History: Reports: CVA, Vertigo Psychiatric History: Reports: None Endocrine/Metabolic History: Reports: Diabetes, Type II Hematologic History: Reports: None Immunologic History: Reports: None Oncologic (Cancer) History: Reports: Basal Cell Carcinoma Dermatologic History: Reports: Melanoma, Other (See Below) Other Dermatologic History: malignant skin neoplasm, basal cell carcinoma, actinic keratosis, junctional nevus, seborrheic keratosis, hemangioma - Past Surgical History HEENT Surgical History: Reports: Adenoidectomy, Cataract Surgery, Tonsillectomy Other HEENT Surgeries/Procedures: BILATERAL CATARACTS REMOVED, Cardiovascular Surgical History: Reports: AICD, Carotid Stents, Coronary Artery Bypass, Coronary Artery Stent, Pacer Other Cardiovascular Surgeries/Procedures: coronary stent placemement of RCA 02/1995. CABG 1995 (triple vessel). PTCA and stenting of LAD 10/15/03. PTCA with stenting (bare metal) to LAD 10/23/03. PTCA with drug eluding stent to LAD 12/01/03. cardiac catheterization (no intervention) 12/26/03. cardiac catheterization (no intervention) 09/18/05. cardiac catheterization (no intervention) 03/04/07. PTCA with drug eluding stent to LAD 06/16/10. PTCA with stenting (bare metal) to vein graft to R coronary artery 01/31/13. Coronary angioplasty proximal LAD in-stent restenosis with m synergy 09/11/16 GI Surgical History: Reports: Appendectomy, Colonoscopy, EGD Neurological Surgical History: Reports: Other (See Below) Other Neurological Surgeries/Procedures: PT REPORTS 2X BACK SURGERIES ONCE TO THORACIC, ONCE TO LUMBAR Musculoskeletal Surgical History: Reports: Shoulder Surgery Other Musculoskeletal Surgeries/Procedures:: bilateral rotator cuff tears and repairs (different times) Other Oncologic Surgeries/Procedures: MELANOMA OF BACK - EXCISED Dermatological Surgical History: Reports: Skin Biopsy Social & Family History - Tobacco Use Smoking Status *Q: Former Smoker Years of Tobacco use: 19 Packs/Tins Daily: 2 Used Tobacco, but Quit: Yes Month/Year Tobacco Last Used: 1994 Second Hand Smoke Exposure: No - Caffeine Use Caffeine Use: Reports: Coffee - Alcohol Use Days Per Week of Alcohol Use: 0 - Recreational Drug Use Recreational Drug Use: No Drug Use in Last 12 Months: No - Living Situation & Occupation Living situation: Reports: (His 83-year-old is at home and is developing quite significant dementia at this time. He is therefore doing most of care and cooking.), with Spouse Occupation: Retired Review of Systems - Review of Systems Review Of Systems: See Below Constitutional: Reports: No Symptoms Ears: Reports: No Symptoms Nose: Reports: No Symptoms Mouth/Throat: Reports: No Symptoms Respiratory: Reports: No Symptoms Cardiovascular: Denies: Edema GI/Abdominal: Reports: No Symptoms Musculoskeletal: Reports: Leg Pain Skin: Reports: No Symptoms Neurological: Reports: No Symptoms Psychiatric: Reports: No Symptoms ED EXAM, GENERAL - Physical Exam Exam: See Below Exam Limited By: No Limitations General Appearance: Alert, WD/WN, No Apparent Distress Eye Exam: Bilateral Eye: Normal Inspection Ears: Normal External Exam Nose: Normal Inspection Throat/Mouth: Normal Inspection, Normal Oropharynx, Normal Voice Head: Atraumatic, Normocephalic Neck: Normal Inspection, Supple, Non-Tender, Full Range of Motion Respiratory/Chest: No Respiratory Distress, Lungs Clear, Normal Breath Sounds, Chest Non-Tender Cardiovascular: Normal Peripheral Pulses, Regular Rate, Rhythm, No Edema GI/Abdominal: Soft, Non-Tender, No Distention Extremities: Other (LLE: distal LLE foot/ankle are cool to the touch compared to RLE. Foot is mildly red. No palpable DP pulse to the foot. +faint PT pulse. Decreased sensation throughout the foot, which patient states is chronic. L great toe is red and mildly swollen. Nail is discolored, posible purulence under the nail. ) Neurological: Alert, Oriented, Normal Cognition, No Motor/Sensory Deficits Psychiatric: Normal Affect, Normal Mood Skin Exam: Warm, Dry, Intact, Normal Color, No Rash Course - Vital Signs Last Recorded V/S: Last Vital Signs Temp 37.5 C 01/12/18 16:09 Pulse 74 01/12/18 16:09 Resp 18 01/12/18 16:09 BP 133/49 L 01/12/18 16:09 Pulse Ox 97 01/12/18 16:09 - Orders/Labs/Meds Orders: Active Orders 24 hr Category Date Time Status Peripheral IV Care [RC] . DIRECTED Care 01/12/18 14:25 Active Peripheral IV Insertion Adult [OM.PC] Routine Oth 01/12/18 14:25 Ordered Labs: Laboratory Tests 01/12/18 01/12/18 01/12/18 Range/Units 14:45 14:45 14:45 WBC 7.32 (4.23-9.07) K/mm3 RBC 3.24 L (4.63-6.08) M/mm3 Hgb 9.7 L (13.7-17.5) gm/L Hct 30.3 L (40.1-51.0) % MCV 93.5 H (79.0-92.2) fl MCH 29.9 (25.7-32.2) pg MCHC 32.0 L (32.2-35.5) g/dl RDW Std Deviation 54.6 H (35.1-43.9) fL Plt Count 179 (163-337) K/mm3 MPV 10.5 (9.4-12.3) fl Neut % (Auto) 74.1 H (34.0-67.9) % Lymph % (Auto) 16.0 L (21.8-53.1) % Tyrrell % (Auto) 7.5 (5.3-12.2) % Eos % (Auto) 1.8 (0.8-7.0) Baso % (Auto) 0.3 (0.1-1.2) % Neut # (Auto) 5.43 H (1.78-5.38) K/mm3 Lymph # (Auto) 1.17 L (1.32-3.57) K/mm3 Tyrrell # (Auto) 0.55 (0.30-0.82) K/mm3 Eos # (Auto) 0.13 (0.04-0.54) K/mm3 Baso # (Auto) 0.02 (0.01-0.08) K/mm3 PT 24.9 H (8.0-13.0) SECONDS INR 2.31 Sodium 140 (136-145) mEq/L Potassium 4.6 (3.5-5.1) mEq/L Chloride 104 (98-107) mEq/L Carbon Dioxide 26 (21-32) mEq/L Anion Gap 14.6 (5-15) BUN 20 H (7-18) mg/dL Creatinine 1.3 (0.7-1.3) mg/dL Est Cr Clr Drug Dosing 40.92 mL/min Estimated GFR (MDRD) 53 (>60) mL/min BUN/Creatinine Ratio 15.4 (14-18) Glucose 181 H (83-115) mg/dL Calcium 8.9 (8.5-10.1) mg/dL Total Bilirubin 0.7 (0.2-1.0) mg/dL AST 51 H (15-37) U/L ALT 33 (16-63) U/L Alkaline Phosphatase 95 (46-116) U/L C-Reactive Protein 2.1 H* (<1.0) mg/dL Total Protein 7.0 (6.4-8.2) g/dl Albumin 3.7 (3.4-5.0) g/dl Globulin 3.3 gm/dL Albumin/Globulin Ratio 1.1 (1-2) Meds: Medications Discontinued Medications Generic Name Dose Route Start Last Admin Trade Name Freq PRN Reason Stop Dose Admin Doxycycline Hyclate 100 mg 01/12/18 14:27 01/12/18 14:52 Vibramycin PO 01/12/18 14:28 100 mg ONETIME ONE Administration Fentanyl 50 mcg 01/12/18 14:26 01/12/18 14:50 Sublimaze IVPUSH 01/12/18 14:27 50 mcg ONETIME ONE Administration Fentanyl 50 mcg 01/12/18 15:59 01/12/18 16:04 Sublimaze IVPUSH 01/12/18 16:00 50 mcg ONETIME ONE Administration Sodium Chloride 10 ml 01/12/18 14:25 01/12/18 14:52 Saline Flush FLUSH 10 ml ASDIRECTED PRN Administration Keep Vein Open - Re-Assessments/Exams Free Text/Narrative Re-Assessment/Exam: 01/12/18 14:45 Patient with known chronic peripheral vascular disease. He has reportedly had vascular studies of the L leg completed at [facility] in the past week. He was told that his L leg arterial stent is occluded. It is the weekend so I can't obtain these results. Regardless, he has poor perfusion in the left leg now with no palpable DP pulse and faint but doplerable PT pulse. Foot is mildly red and is cool to the touch. His great toe also appears infected, with at least a cellulitis. His leg is also quite painful, I suspect due to claudication rather than infection. I think he needs urgent evaluation by vascular surgery. [facility] oncal called at 14:40. 01/12/18 15:[address] Tucker, vascular interventional radiologist at [facility] who is familiar with his case and has reviewed his CTA completed here earlier this week. Confirms that he does have distal occlusion and lots of calcification of his arteries but does have collateral flow on this study. Given presence of dopplerable PT pulse today, he wouldn't provide emergent vascular intervention over the weekend but may be able to do something on Sunday. Given presence of acute infection in the foot as well and no orthopedist available here, I do think the patient would be best served in [place]. He also expresses preference to be transferred. Dr. Perez ( hospitalist) accepts the patient for transfer. 01/12/18 15:41 01/12/18 15:45 INR pending. CBC/chem unremarkable. CRP mildly elevated at 2.2. Departure - Departure Time of Disposition: 15:45 Disposition: DC/Tfer to [facility] 02 Clinical Impression: Claudication of left lower extremity, Peripheral vascular disease of lower extremity, Cellulitis of great toe of left foot - Discharge Information Referrals: Ganesh Luo MD [Primary Care Provider] - Forms: ED Department Discharge - My Orders Last 24 Hours: My Active Orders 01/12/18 14:25 Peripheral IV Care [RC] . DIRECTED Peripheral IV Insertion Adult [OM.PC] Routine - Assessment/Plan Last 24 Hours: My Active Orders 01/12/18 14:25 Peripheral IV Care [RC] . DIRECTED Peripheral IV Insertion Adult [OM.PC] Routine
--- NOTE | 2018-01-12 16:12 | CR ---
Left foot: Four views of the left foot were obtained. Comparison: No prior foot exam. Small plantar spur is seen. Vascular calcification is noted. Bony structures are osteopenic. Mild degenerative change is noted within the first MTP joint. No acute fracture or other bony abnormality is appreciated. No focal erosions are seen. Impression: 1. Incidental findings. Nothing acute is appreciated Diagnostic code #2
[2018-01-12 16:53] VITALS: BP 133/49
== END 2018-01-12 16:09 ==
LOC: SUPCPDRO 13:00 → JD.ED 13:00
DX: I73.9 Peripheral vascular disease, unspecified (principal); L03.032 Cellulitis of left toe; I12.9 Hypertensive chronic kidney disease with stage 1 through stage 4 chronic kidney disease, or unspecified chronic kidney disease; N18.9 Chronic kidney disease, unspecified; E11.22 Type 2 diabetes mellitus with diabetic chronic kidney disease; E78.00 Pure hypercholesterolemia, unspecified; I25.2 Old myocardial infarction; Z91.040 Latex allergy status; Z88.8 Allergy status to other drugs, medicaments and biological substances; Z79.899 Other long term (current) drug therapy; Z79.4 Long term (current) use of insulin; Z87.891 Personal history of nicotine dependence
CPT/HCPCS: 36415; 73630; 80053; 85025; 85610; 86140; 96374; 96376; 99285; A9270; J3010; J7050; 99284

== ENCOUNTER 2018-10-22 19:15 | Emergency (ER) | payer MEDICARE, OTHER ==
--- NOTE | 2018-10-22 19:28 | EDM.PDOC ---
ED HPI GENERAL MEDICAL PROBLEM - General Chief Complaint: ENT Problem Stated Complaint: bloody nose Time Seen by Provider: 10/22/18 19:32 Source of Information: Reports: Patient History Limitations: Reports: No Limitations - History of Present Illness INITIAL COMMENTS - FREE TEXT/NARRATIVE: 83-year-old male presents the ED with persistent bleeding from the left naris since about 1630 hrs. today. He had a nosebleed similarly last week but was on the opposite side. Note the patient has had no trauma to his nose no recent surgery. He lives in [facility] and does indicate that it is quite hot in the facility. His daughter did get him a humidifier yesterday. Patient is on Coumadin because of chronic atrial fibrillation.He can`t Remember when his last PT/INR was checked. Patient has a cottonball stuffed up his left naris and the bleeding seems to quit. It was running down the back for stroke earlier. Onset: Today Onset Date: 10/22/18 Onset Time: 16:30 Duration: Hour(s): Location: Reports: Face (Left sided epistaxis for 3 hours) Quality: Reports: Other Severity: Moderate (No associated pain) Improves with: Reports: Other (Seems to be better since he plug the nose with cotton ball) Worsens with: Reports: None Context: Reports: Other. 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: Other (see below) - Related Data Allergies Allergy/AdvReac Type Severity Reaction Status Date / Time latex Allergy Unknown Cannot Verified 10/22/18 19:24 Remember adhesive Allergy Hives Verified 10/22/18 19:24 celecoxib Allergy Cannot Verified 10/22/18 19:24 Remember clopidogrel Allergy Cannot Verified 10/22/18 19:24 Remember ramipril [From Altace] Allergy Itching Verified 10/22/18 19:24 rofecoxib [From Vioxx] Allergy Edema Verified 10/22/18 19:24 sertraline Allergy Cannot Verified 10/22/18 19:24 Remember simvastatin Allergy Edema Verified 10/22/18 19:24 valsartan Allergy Cannot Verified 10/22/18 19:24 Remember chlordiazepoxide AdvReac Confusion Verified 10/22/18 19:24 clidinium [Clidinium] AdvReac Confusion Verified 10/22/18 19:24 pregabalin [From Lyrica] AdvReac Confusion Verified 10/22/18 19:24 Home Meds: Home Meds Chromium Picolinate 200 mcg PO DAILY 06/27/15 [History] Digoxin [Lanoxin] 125 mcg PO DAILY 06/27/15 [History] Diltiazem HCl [Diltiazem 24Hr ER] 240 mg PO DAILY 06/27/15 [History] Furosemide [Lasix] 40 mg PO DAILY 06/27/15 [History] Glimepiride [Amaryl] 4 mg PO DAILY 06/27/15 [History] Insulin Glarg,Human.Rec.Analog [LantUS Solostar] 80 units SUBCUT DAILY 06/27/15 [History] Metoprolol Succinate [Toprol XL] 100 mg PO BID 06/27/15 [History] Omeprazole 40 mg PO QAM 06/27/15 [History] Cholecalciferol (Vitamin D3) [Vitamin D3] 1,000 unit PO DAILY 02/25/16 [History] Flaxseed Oil [Flaxseed] 1,000 mg PO DAILY 09/08/16 [History] Nitroglycerin [Nitrostat] 0.4 mg SL Q5M PRN 09/08/16 [History] Warfarin [Coumadin] 5 mg PO SUTUTHSA 09/08/16 [History] Cyanocobalamin (Vitamin B-12) [Vitamin B-12] 500 mcg PO DAILY 06/12/17 [History] Isosorbide Mononitrate [Imdur] 60 mg PO DAILY 06/12/17 [History] Terazosin HCl [Terazosin] 5 mg PO QAM 06/12/17 [History] Valsartan 160 mg PO DAILY 06/12/17 [History] Warfarin [Coumadin] 2.5 mg PO MOWEFR 06/12/17 [History] atorvaSTATin [Lipitor] 40 mg PO DAILY 06/12/17 [History] Multivit-Min/FA/Lutein/Zeaxant [Macular Vitamin Tablet] 1 tab PO DAILY 11/15/17 [History] Antiiva 2 tab PO DAILY 01/12/18 [History] Clopidogrel [Plavix] 75 mg PO DAILY 01/12/18 [History] Omeprazole 20 mg PO QPM 01/12/18 [History] Terazosin HCl [Terazosin] 10 mg PO BEDTIME 01/12/18 [History] Bacitracin/Polymyxin B Sulfate [Polysporin Ointment] 1 each TP DAILY #1 tube [Rx] Past Medical History HEENT History: Reports: Cataract Other HEENT History: has glasses, wears dentures Cardiovascular History: Reports: Afib, Angina, CAD, Heart Murmur, High Cholesterol, Hypertension, IA, Pacemaker, Other (See Below) Other Cardiovascular History: pad,chf Respiratory History: Reports: Sleep Apnea, SOB Other Respiratory History: does not use CPAP, has wheezing and history of pneumonia Gastrointestinal History: Reports: Colon Polyp, Hemorrhoids, PUD Other Gastrointestinal History: melanosis of coli, diverticulosis, small bowel obstruction, increased liver enzymes, chavis's esophagus Genitourinary History: Reports: BPH Other Genitourinary History: CHRONIC RENAL INSUFFICIENCY SUPPORT CLERK History: Reports: None Musculoskeletal History: Reports: Other (See Below) Other Musculoskeletal History: Right elbow olecranon bursitis, rotator cuff tear Neurological History: Reports: CVA, Vertigo Psychiatric History: Reports: None Endocrine/Metabolic History: Reports: Diabetes, Type II Hematologic History: Reports: None Immunologic History: Reports: None Oncologic (Cancer) History: Reports: Basal Cell Carcinoma Dermatologic History: Reports: Melanoma, Other (See Below) Other Dermatologic History: malignant skin neoplasm, basal cell carcinoma, actinic keratosis, junctional nevus, seborrheic keratosis, hemangioma - Past Surgical History HEENT Surgical History: Reports: Adenoidectomy, Cataract Surgery, Tonsillectomy Other HEENT Surgeries/Procedures: BILATERAL CATARACTS REMOVED, Cardiovascular Surgical History: Reports: AICD, Carotid Stents, Coronary Artery Bypass, Coronary Artery Stent, Pacer Other Cardiovascular Surgeries/Procedures: coronary stent placemement of RCA 02/1995. CABG 1995 (triple vessel). PTCA and stenting of LAD 10/15/03. PTCA with stenting (bare metal) to LAD 10/23/03. PTCA with drug eluding stent to LAD 12/01/03. cardiac catheterization (no intervention) 12/26/03. cardiac catheterization (no intervention) 09/18/05. cardiac catheterization (no intervention) 03/04/07. PTCA with drug eluding stent to LAD 06/16/10. PTCA with stenting (bare metal) to vein graft to R coronary artery 01/31/13. Coronary angioplasty proximal LAD in-stent restenosis with m synergy 09/11/16 GI Surgical History: Reports: Appendectomy, Colonoscopy, EGD Neurological Surgical History: Reports: Other (See Below) Other Neurological Surgeries/Procedures: PT REPORTS 2X BACK SURGERIES ONCE TO THORACIC, ONCE TO LUMBAR Musculoskeletal Surgical History: Reports: Shoulder Surgery Other Musculoskeletal Surgeries/Procedures:: bilateral rotator cuff tears and repairs (different times) Other Oncologic Surgeries/Procedures: MELANOMA OF BACK - EXCISED Dermatological Surgical History: Reports: Skin Biopsy Social & Family History - Tobacco Use Smoking Status *Q: Former Smoker Used Tobacco, but Quit: Yes Month/Year Tobacco Last Used: 1994 - Caffeine Use Caffeine Use: Reports: None - Recreational Drug Use Recreational Drug Use: No - Living Situation & Occupation Living situation: Reports: (His 83-year-old is at home and is developing quite significant dementia at this time. He is therefore doing most of care and cooking.), with Spouse Occupation: Retired ED ROS ENT - Review of Systems Review Of Systems: See Below Constitutional: Reports: Malaise, Weakness, Fatigue. Denies: Fever, Chills HEENT: Reports: Glasses, Nosebleed Respiratory: Reports: Shortness of Breath (Left side since 1630 hrs. today), Cough. Denies: Wheezing, Pleuritic Chest Pain Cardiovascular: Reports: Blood Pressure Problem, Dyspnea on Exertion (Usually nonproductive), Other (Chronic atrial fibrillation and is on Coumadin). Denies : Chest Pain, Claudication, Orthopnea (Is on antihypertensive medication) Endocrine: Reports: Fatigue GI/Abdominal: Reports: Constipation : Reports: Frequency, Other (Bacteria 3. Has BPH.) Musculoskeletal: Reports: Back Pain, Joint Pain (These hips and neck at times) Skin: Reports: Bruising Neurological: Reports: No Symptoms (Was easily as he is on Coumadin) Psychiatric: Reports: No Symptoms Hematologic/Lymphatic: Reports: No Symptoms Immunologic: Reports: No Symptoms ED EXAM, ENT - Physical Exam Exam: See Below Exam Limited By: No Limitations General Appearance: Alert, WD/WN, No Apparent Distress, Other (Happy and jovial. 3 pleasant fellow) Eye Exam: Bilateral Eye: Normal Inspection (Peripheral margins are mildly pallid.) Nose: Other (The anterior nasal mucosa on both sides of the nares is very thin and erythematous with prominent blood vessels on the surface. No active bleeders were appreciated on examination of the right side. 2 areas of bleeding were appreciated from the left anterior nasal septum. These were cauterized with silver nitrate.) Mouth/Throat: Other (There is dried blood on his soft palate and the posterior oropharynx but no active bleeding.) Neck: Normal Inspection, Supple, Non-Tender, Full Range of Motion, Limited Range of Motion. No: Lymphadenopathy (L), Lymphadenopathy (R) Respiratory/Chest: Respiratory Distress (Mild tachypnea at rest 20/m but O2 sats are 96% on room air), Decreased Breath Sounds (Decreased to the lower 25% of lung bond bilaterally.) ED ENT PROCEDURES - Epistaxis Procedure Indication: Epistaxis Recent anticoagulants/antiplatlets: Yes (Patient is chronically on Coumadin because of atrial fibrillation) Uncontrolled HTN: No Recent septal/nasal surgery: No Site of bleeding: Left Nare, Anterior Ice pack to area: No Chemical cautery: Silver Nitrate Topical Course - Vital Signs Last Recorded V/S: Last Vital Signs Temp 36.6 C 10/22/18 19:24 Pulse 73 10/22/18 19:24 Resp 20 10/22/18 19:24 BP 127/59 L 10/22/18 19:24 Pulse Ox 96 10/22/18 19:24 - Orders/Labs/Meds Orders: Active Orders 24 hr Category Date Time Status CBC WITH MANUAL DIFF [HEME] Stat Lab 10/22/18 19:38 Results Labs: Laboratory Tests 10/22/18 10/22/18 10/22/18 Range/Units 19:38 19:38 19:38 WBC 5.33 (4.23-9.07) K/mm3 RBC 3.18 L (4.63-6.08) M/mm3 Hgb 9.3 L (13.7-17.5) gm/L Hct 30.5 L (40.1-51.0) % MCV 95.9 H (79.0-92.2) fl MCH 29.2 (25.7-32.2) pg MCHC 30.5 L (32.2-35.5) g/dl RDW Std Deviation 54.5 H (35.1-43.9) fL Plt Count 197 (163-337) K/mm3 MPV 9.4 (9.4-12.3) fl PT 24.7 H (9.5-12.1) SECONDS INR 2.30 Sodium 140 (136-145) mEq/L Potassium 4.2 (3.5-5.1) mEq/L Chloride 103 (98-107) mEq/L Carbon Dioxide 27 (21-32) mEq/L Anion Gap 14.2 (5-15) BUN 26 H (7-18) mg/dL Creatinine 1.3 (0.7-1.3) mg/dL Est Cr Clr Drug Dosing 38.84 mL/min Estimated GFR (MDRD) 52 (>60) mL/min BUN/Creatinine Ratio 20.0 H (14-18) Glucose 181 H (83-115) mg/dL Calcium 8.9 (8.5-10.1) mg/dL Total Bilirubin 0.8 (0.2-1.0) mg/dL AST 31 (15-37) U/L ALT 26 (16-63) U/L Alkaline Phosphatase 82 (46-116) U/L Total Protein 7.1 (6.4-8.2) g/dl Albumin 3.7 (3.4-5.0) g/dl Globulin 3.4 gm/dL Albumin/Globulin Ratio 1.1 (1-2) - Radiology Interpretation Free Text/Narrative:: 83-year-old male presents the ED with left anterior nasal bleeding since 1630 hrs. today. is on Coumadin. Spontaneous bleeding with no nasal trauma. Examination reveals that the bleeding for the most part has come under control with cotton packing that he had placed. I found 2 areas on the nasal septum anteriorly that were point bleeders. These areas were cauterized with silver nitrate. The mucosa on the right side of the nares is thin but I could find no active bleeding sites. - Re-Assessments/Exams Free Text/Narrative Re-Assessment/Exam: 10/22/18 20:20 on reinspection no active bleeding has occurred from the naris and bleeding appears to come under control. I will advise him to pick up operator some Polysporin ointment which is daughter will do for him and place a T side of his nose at bedtime for the next week with aid of a Q-tip. After this will use it Sunday and and Sunday nights for the rest of the winter to try and prevent further bleeding. If he has further bleeding consideration of estradiol compound from [facility] pharmacy placed into the nares every day may be considered Labs reveal a normal white count at 5.33. Hemoglobin is on the low side at 9.3. Hematocrit is 30.5. MCV slightly elevated at 95.9. The counter 197, 000. PT today is 24.7 with an INR 2.30. Larkin is therapeutic and requires no changes in dosage. Departure - Departure Time of Disposition: 19:57 Disposition: Home, Self-Care 01 Condition: Fair Clinical Impression: Anterior epistaxis, Epistaxis - Discharge Information *PRESCRIPTION DRUG MONITORING PROGRAM REVIEWED*: Not Applicable *COPY OF PRESCRIPTION DRUG MONITORING REPORT IN PATIENT RICHELLE: Not Applicable Prescriptions: Bacitracin/Polymyxin B Sulfate [Polysporin Ointment] 1 each TP DAILY #1 tube Instructions: Nosebleed, [id number] Referrals: Ganesh Luo MD [Primary Care Provider] - Forms: ED Department Discharge Additional Instructions: Evaluation the emergency room this tonight in regards to development of right- sided nosebleeds since 1630 hrs. today. By the time he came here with cough and packing in the left naris the bleeding and pretty will come under control. Identified to sites of bleeding from the left anterior naris that were cauterized with silver nitrate. The lining of the nose on the right side is also very thin with prominent blood vessels likely has been bleeding intermittently as well. Recheck revealed no further bleeding. Coumadin is to use Polysporin ointment on the end of a Q-tip every night at bedtime into each side of the naris septum for the next week. After this use it twice weekly Sunday night and Sunday nights for the rest of the winter months usually till the end of December or mid January to prevent further nosebleeds from occurring. - My Orders Last 24 Hours: My Active Orders 10/22/18 19:38 CBC WITH MANUAL DIFF [HEME] Stat - Assessment/Plan Last 24 Hours: My Active Orders 10/22/18 19:38 CBC WITH MANUAL DIFF [HEME] Stat
[2018-10-22 19:57] VITALS: BP 127/59
== END 2018-10-22 20:15 | disposition home or self-care (01) ==
LOC: JD.ED 19:15
DX: R04.0 Epistaxis (principal); I48.91 Unspecified atrial fibrillation; E78.00 Pure hypercholesterolemia, unspecified; I10 Essential (primary) hypertension; I25.2 Old myocardial infarction; E11.9 Type 2 diabetes mellitus without complications; Z91.040 Latex allergy status; Z79.899 Other long term (current) drug therapy; Z88.8 Allergy status to other drugs, medicaments and biological substances; Z79.01 Long term (current) use of anticoagulants; Z79.4 Long term (current) use of insulin; Z87.891 Personal history of nicotine dependence
CPT/HCPCS: 30901; 36415; 80053; 85007; 85027; 85610; 99283-25

== ENCOUNTER 2018-10-22 22:13 | Emergency (ER) | payer MEDICARE, OTHER ==
[2018-10-22 22:26] VITALS: BP 119/52
--- NOTE | 2018-10-22 22:51 | EDM.PDOC ---
ED HPI GENERAL MEDICAL PROBLEM - General Chief Complaint: ENT Problem Stated Complaint: bloody nose Time Seen by Provider: 10/22/18 22:35 Source of Information: Reports: Patient, Family (daughter) History Limitations: Reports: No Limitations - History of Present Illness INITIAL COMMENTS - FREE TEXT/NARRATIVE: 83-year-old male returns to the ED with recurrent epistaxis from the left side of his nose. He denies prolonged hard a rubbing it in any fashion or form. He of note he was seen 2-3 hours earlier in the ED and the left anterior nasal septum bleeders were cauterized with silver nitrate and bleeding seemed to be under good control time he left the ED. PT/INR was therapeutic at 2.3. Again has the left naris packed with some cotton gauze. Gain he was aware of blood passing down the oropharynx. Onset: Today Onset Date: 10/22/18 Onset Time: 22:00 Duration: Minutes: Location: Reports: Face (Left-sided epistaxis once again) Quality: Reports: Other Severity: Moderate (No pain) Improves with: Reports: Other (Seems to again come under control with packing with caudal gauze) Worsens with: Reports: None Context: Reports: Other (Continuous recurrent left-sided epistaxis). Denies: Activity, Exercise, Lifting, Sick Contact, Trauma Associated Symptoms: Reports: No Other Symptoms Treatments CREDIT ASSESSMENT ANALYST: Reports: Other (see below) nose Pain Score (Numeric/FACES): 4 - Related Data Allergies Allergy/AdvReac Type Severity Reaction Status Date / Time latex Allergy Unknown Cannot Verified 10/22/18 19:24 Remember adhesive Allergy Hives Verified 10/22/18 19:24 celecoxib Allergy Cannot Verified 10/22/18 19:24 Remember clopidogrel Allergy Cannot Verified 10/22/18 19:24 Remember ramipril [From Altace] Allergy Itching Verified 10/22/18 19:24 rofecoxib [From Vioxx] Allergy Edema Verified 10/22/18 19:24 sertraline Allergy Cannot Verified 10/22/18 19:24 Remember simvastatin Allergy Edema Verified 10/22/18 19:24 valsartan Allergy Cannot Verified 10/22/18 19:24 Remember chlordiazepoxide AdvReac Confusion Verified 10/22/18 19:24 clidinium [Clidinium] AdvReac Confusion Verified 10/22/18 19:24 pregabalin [From Lyrica] AdvReac Confusion Verified 10/22/18 19:24 Home Meds: Home Meds Chromium Picolinate 200 mcg PO DAILY 06/27/15 [History] Digoxin [Lanoxin] 125 mcg PO DAILY 06/27/15 [History] Diltiazem HCl [Diltiazem 24Hr ER] 240 mg PO DAILY 06/27/15 [History] Furosemide [Lasix] 40 mg PO DAILY 06/27/15 [History] Glimepiride [Amaryl] 4 mg PO DAILY 06/27/15 [History] Insulin Glarg,Human.Rec.Analog [LantUS Solostar] 80 units SUBCUT DAILY 06/27/15 [History] Metoprolol Succinate [Toprol XL] 100 mg PO BID 06/27/15 [History] Omeprazole 40 mg PO QAM 06/27/15 [History] Cholecalciferol (Vitamin D3) [Vitamin D3] 1,000 unit PO DAILY 02/25/16 [History] Flaxseed Oil [Flaxseed] 1,000 mg PO DAILY 09/08/16 [History] Nitroglycerin [Nitrostat] 0.4 mg SL Q5M PRN 09/08/16 [History] Warfarin [Coumadin] 5 mg PO SUTUTHSA 09/08/16 [History] Cyanocobalamin (Vitamin B-12) [Vitamin B-12] 500 mcg PO DAILY 06/12/17 [History] Isosorbide Mononitrate [Imdur] 60 mg PO DAILY 06/12/17 [History] Terazosin HCl [Terazosin] 5 mg PO QAM 06/12/17 [History] Valsartan 160 mg PO DAILY 06/12/17 [History] Warfarin [Coumadin] 2.5 mg PO MOWEFR 06/12/17 [History] atorvaSTATin [Lipitor] 40 mg PO DAILY 06/12/17 [History] Multivit-Min/FA/Lutein/Zeaxant [Macular Vitamin Tablet] 1 tab PO DAILY 11/15/17 [History] Antiiva 2 tab PO DAILY 01/12/18 [History] Clopidogrel [Plavix] 75 mg PO DAILY 01/12/18 [History] Omeprazole 20 mg PO QPM 01/12/18 [History] Terazosin HCl [Terazosin] 10 mg PO BEDTIME 01/12/18 [History] Bacitracin/Polymyxin B Sulfate [Polysporin Ointment] 1 each TP DAILY #1 tube [Rx] Past Medical History HEENT History: Reports: Cataract Other HEENT History: has glasses, wears dentures Cardiovascular History: Reports: Afib, Angina, CAD, Heart Murmur, High Cholesterol, Hypertension, PR, Pacemaker, Other (See Below) Other Cardiovascular History: pad,chf Respiratory History: Reports: Sleep Apnea, SOB Other Respiratory History: does not use CPAP, has wheezing and history of pneumonia Gastrointestinal History: Reports: Colon Polyp, Hemorrhoids, PUD Other Gastrointestinal History: melanosis of coli, diverticulosis, small bowel obstruction, increased liver enzymes, chavis's esophagus Genitourinary History: Reports: BPH Other Genitourinary History: CHRONIC RENAL INSUFFICIENCY VENDOR ANALYST History: Reports: None Musculoskeletal History: Reports: Other (See Below) Other Musculoskeletal History: Right elbow olecranon bursitis, rotator cuff tear Neurological History: Reports: CVA, Vertigo Psychiatric History: Reports: None Endocrine/Metabolic History: Reports: Diabetes, Type II Hematologic History: Reports: None Immunologic History: Reports: None Oncologic (Cancer) History: Reports: Basal Cell Carcinoma Dermatologic History: Reports: Melanoma, Other (See Below) Other Dermatologic History: malignant skin neoplasm, basal cell carcinoma, actinic keratosis, junctional nevus, seborrheic keratosis, hemangioma - Past Surgical History HEENT Surgical History: Reports: Adenoidectomy, Cataract Surgery, Tonsillectomy Other HEENT Surgeries/Procedures: BILATERAL CATARACTS REMOVED, Cardiovascular Surgical History: Reports: AICD, Carotid Stents, Coronary Artery Bypass, Coronary Artery Stent, Pacer Other Cardiovascular Surgeries/Procedures: coronary stent placemement of RCA 02/1995. CABG 1995 (triple vessel). PTCA and stenting of LAD 10/15/03. PTCA with stenting (bare metal) to LAD 10/23/03. PTCA with drug eluding stent to LAD 12/01/03. cardiac catheterization (no intervention) 12/26/03. cardiac catheterization (no intervention) 09/18/05. cardiac catheterization (no intervention) 03/04/07. PTCA with drug eluding stent to LAD 06/16/10. PTCA with stenting (bare metal) to vein graft to R coronary artery 01/31/13. Coronary angioplasty proximal LAD in-stent restenosis with m synergy 09/11/16 GI Surgical History: Reports: Appendectomy, Colonoscopy, EGD Neurological Surgical History: Reports: Other (See Below) Other Neurological Surgeries/Procedures: PT REPORTS 2X BACK SURGERIES ONCE TO THORACIC, ONCE TO LUMBAR Musculoskeletal Surgical History: Reports: Shoulder Surgery Other Musculoskeletal Surgeries/Procedures:: bilateral rotator cuff tears and repairs (different times) Other Oncologic Surgeries/Procedures: MELANOMA OF BACK - EXCISED Dermatological Surgical History: Reports: Skin Biopsy Social & Family History - Tobacco Use Smoking Status *Q: Former Smoker Used Tobacco, but Quit: Yes Month/Year Tobacco Last Used: 1994 - Caffeine Use Caffeine Use: Reports: None - Living Situation & Occupation Living situation: Reports: (His 83-year-old is at home and is developing quite significant dementia at this time. He is therefore doing most of care and cooking.), with Spouse Occupation: Retired ED ROS ENT - Review of Systems Review Of Systems: See Below Constitutional: Reports: Weakness, Fatigue. Denies: Fever, Chills, Malaise HEENT: Reports: Nosebleed Respiratory: Reports: Shortness of Breath (Left-sided nasal bleeding for the second time tonight. Likely), Cough (Occasional cough) Cardiovascular: Reports: Blood Pressure Problem, Dyspnea on Exertion (Lately has been running a bit on the low side), Edema (Mild lower extremities chronically) Endocrine: Reports: Fatigue GI/Abdominal: Reports: Constipation : Reports: Frequency (Vocational positive constipation), Other (BPH usually up 3 times a night to void) Musculoskeletal: Reports: Joint Pain (Lower back both knees both hips shoulders and neck at times) Skin: Reports: Other (CC easily as he is on Coumadin.) Neurological: Reports: No Symptoms, Dizziness, Numbness (States his feet always feel cold since he had angioplasty of the lower extremity vessels). Denies: Headache, Syncope, Tingling (Occasional dizziness) Psychiatric: Reports: No Symptoms Hematologic/Lymphatic: Reports: No Symptoms Immunologic: Reports: No Symptoms ED EXAM, ENT - Physical Exam Exam: See Below Exam Limited By: No Limitations General Appearance: Alert, WD/WN, Anxious, Mild Distress Eye Exam: Bilateral Eye: Normal Inspection Nose: Other (Once again bleeding is appreciated from the same ear that I cauterized on the left anterior mid septum. I removed as much blood and clot as I could from the nose as it was quite a bit in the nose this time as compared to last visit. I cauterized 3 different areas in the nasal septum anteriorly with silver nitrate. Then monitor for another 15 minutes with no further bleeding occurring. Decision made to pack him on the left side with Vaseline Tubegauz.) Mouth/Throat: Other (Dried blood in the soft palate and posterior oropharynx) Head: Atraumatic, Normocephalic Neck: Normal Inspection, Limited Range of Motion. No: Lymphadenopathy (L), Lymphadenopathy (R) Cardiovascular: Normal Peripheral Pulses, Regular Rate, Rhythm, No Edema, No Murmur, No Rub Course - Vital Signs Last Recorded V/S: Last Vital Signs Temp 36.4 C 10/22/18 22:24 Pulse 75 10/22/18 22:24 Resp 20 10/22/18 22:24 BP 119/52 L 10/22/18 22:24 Pulse Ox 95 10/22/18 22:24 - Radiology Interpretation Free Text/Narrative:: 83-year-old male returns to the ED for the second time tonight with recurrent left-sided spontaneous nasal leading. On Coumadin. His INR was therapeutic at 2.3. On examination he was found to be bleeding from the left anterior nasal septum in the same area that I cauterized earlier with silver nitrate and was quite dry at the time of discharge. At any rate I was able to remove clot and blood from the area. I then cauterized it once again with silver nitrate in 3 different areas and bleeding came under immediate control. I monitored for 15 minutes and was no further bleeding. I then packed the nose with Vaseline Tubegauz status post to stay in overnight and be removed in the morning. Departure - Departure Time of Disposition: 23:06 Disposition: Home, Self-Care 01 Condition: Fair Clinical Impression: Anterior epistaxis - Discharge Information *PRESCRIPTION DRUG MONITORING PROGRAM REVIEWED*: Not Applicable *COPY OF PRESCRIPTION DRUG MONITORING REPORT IN PATIENT RICHELLE: Not Applicable Instructions: Nosebleed, [id number] Referrals: Ganesh Luo MD [Primary Care Provider] - Forms: ED Department Discharge Additional Instructions: Evaluation in the emergent tonight for the second time due to recurrent left- sided nosebleed. On this examination it is coming from almost exactly the same place as well as it was initially 1 recauterize it. There was more blood in the naris which I had to clean out. I cauterized the area again with silver nitrate in the bleeding seemed to come under excellent control. A Vaseline to gauze pack was placed in it should remain in place until tomorrow morning at which time he could remove it. After this of course Polysporin ointment to be applied to both sides of the nasal septum every night at bedtime for the next week as we previously protein your discharge. of coarse return to the ED if there is any further bleeding. By the way your Coumadin time was therapeutic at 2.3.
== END 2018-10-22 23:13 | disposition home or self-care (01) ==
LOC: JD.ED 22:13
DX: R04.0 Epistaxis (principal); I12.0 Hypertensive chronic kidney disease with stage 5 chronic kidney disease or end stage renal disease; I48.91 Unspecified atrial fibrillation; E78.00 Pure hypercholesterolemia, unspecified; E11.9 Type 2 diabetes mellitus without complications; Z91.040 Latex allergy status; Z79.899 Other long term (current) drug therapy; Z88.8 Allergy status to other drugs, medicaments and biological substances; Z79.01 Long term (current) use of anticoagulants
CPT/HCPCS: 30901; 30905; 99283-25; 99284

== ENCOUNTER 2018-10-23 01:36 | Emergency (ER) | payer MEDICARE, OTHER ==
--- NOTE | 2018-10-23 01:48 | EDM.PDOC ---
ED HPI GENERAL MEDICAL PROBLEM - General Chief Complaint: ENT Problem Stated Complaint: bloody nose Time Seen by Provider: 10/23/18 01:40 Source of Information: Reports: Patient, Family History Limitations: Reports: No Limitations - History of Present Illness INITIAL COMMENTS - FREE TEXT/NARRATIVE: 83-year-old male presents once again to the ED for the third time in 8 hours with recurrent epistaxis from the left side of his nares. First visit he had cauterization performed silver nitrate with no active bleeding after monitoring for half hour and was discharged home. However 2-3 hours later he started to have active bleeding again from the left anterior nasal septum. He was cauterized bleeding came under control and I did pack it with Vaseline Tubegauz anteriorly. He states after that he started to notice that the blood was draining down the back of his throat and he was unable to lie flat. Oozing of blood and clots since last discharge from the hospital. Note the nasal packing is moderately saturated with blood. Note the patient is chronically anticoagulated with Coumadin and his INR was therapeutic at 2.3 when tested earlier last evening Onset: Today Onset Date: 10/23/18 Duration: Minutes: (Bleeding started again about midnight.) Location: Reports: Face (Left nasal hemorrhage) Quality: Reports: Other Severity: Moderate Improves with: Reports: None Worsens with: Reports: None Context: Reports: Other (Spontaneous bleeding left anterior naris.). 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 (see below) - Related Data Allergies Allergy/AdvReac Type Severity Reaction Status Date / Time latex Allergy Unknown Cannot Verified 10/22/18 19:24 Remember adhesive Allergy Hives Verified 10/22/18 19:24 celecoxib Allergy Cannot Verified 10/22/18 19:24 Remember clopidogrel Allergy Cannot Verified 10/22/18 19:24 Remember ramipril [From Altace] Allergy Itching Verified 10/22/18 19:24 rofecoxib [From Vioxx] Allergy Edema Verified 10/22/18 19:24 sertraline Allergy Cannot Verified 10/22/18 19:24 Remember simvastatin Allergy Edema Verified 10/22/18 19:24 valsartan Allergy Cannot Verified 10/22/18 19:24 Remember chlordiazepoxide AdvReac Confusion Verified 10/22/18 19:24 clidinium [Clidinium] AdvReac Confusion Verified 10/22/18 19:24 pregabalin [From Lyrica] AdvReac Confusion Verified 10/22/18 19:24 Home Meds: Home Meds Chromium Picolinate 200 mcg PO DAILY 06/27/15 [History] Digoxin [Lanoxin] 125 mcg PO DAILY 06/27/15 [History] Diltiazem HCl [Diltiazem 24Hr ER] 240 mg PO DAILY 06/27/15 [History] Furosemide [Lasix] 40 mg PO DAILY 06/27/15 [History] Glimepiride [Amaryl] 4 mg PO DAILY 06/27/15 [History] Insulin Glarg,Human.Rec.Analog [LantUS Solostar] 80 units SUBCUT DAILY 06/27/15 [History] Metoprolol Succinate [Toprol XL] 100 mg PO BID 06/27/15 [History] Omeprazole 40 mg PO QAM 06/27/15 [History] Cholecalciferol (Vitamin D3) [Vitamin D3] 1,000 unit PO DAILY 02/25/16 [History] Flaxseed Oil [Flaxseed] 1,000 mg PO DAILY 09/08/16 [History] Nitroglycerin [Nitrostat] 0.4 mg SL Q5M PRN 09/08/16 [History] Warfarin [Coumadin] 5 mg PO SUTUTHSA 09/08/16 [History] Cyanocobalamin (Vitamin B-12) [Vitamin B-12] 500 mcg PO DAILY 06/12/17 [History] Isosorbide Mononitrate [Imdur] 60 mg PO DAILY 06/12/17 [History] Terazosin HCl [Terazosin] 5 mg PO QAM 06/12/17 [History] Valsartan 160 mg PO DAILY 06/12/17 [History] Warfarin [Coumadin] 2.5 mg PO MOWEFR 06/12/17 [History] atorvaSTATin [Lipitor] 40 mg PO DAILY 06/12/17 [History] Multivit-Min/FA/Lutein/Zeaxant [Macular Vitamin Tablet] 1 tab PO DAILY 11/15/17 [History] Antiiva 2 tab PO DAILY 01/12/18 [History] Clopidogrel [Plavix] 75 mg PO DAILY 04/07/18 [History] Omeprazole 20 mg PO QPM 01/12/18 [History] Terazosin HCl [Terazosin] 10 mg PO BEDTIME 01/12/18 [History] Bacitracin/Polymyxin B Sulfate [Polysporin Ointment] 1 each TP DAILY #1 tube [Rx] Past Medical History HEENT History: Reports: Cataract Other HEENT History: has glasses, wears dentures Cardiovascular History: Reports: Afib, Angina, CAD, Heart Murmur, High Cholesterol, Hypertension, NM, Pacemaker, Other (See Below) Other Cardiovascular History: pad,chf Respiratory History: Reports: Sleep Apnea, SOB Other Respiratory History: does not use CPAP, has wheezing and history of pneumonia Gastrointestinal History: Reports: Colon Polyp, Hemorrhoids, PUD Other Gastrointestinal History: melanosis of coli, diverticulosis, small bowel obstruction, increased liver enzymes, chavis's esophagus Genitourinary History: Reports: BPH Other Genitourinary History: CHRONIC RENAL INSUFFICIENCY [employer] CONSULTANT History: Reports: None Musculoskeletal History: Reports: Other (See Below) Other Musculoskeletal History: Right elbow olecranon bursitis, rotator cuff tear Neurological History: Reports: CVA, Vertigo Psychiatric History: Reports: None Endocrine/Metabolic History: Reports: Diabetes, Type II Hematologic History: Reports: None Immunologic History: Reports: None Oncologic (Cancer) History: Reports: Basal Cell Carcinoma Dermatologic History: Reports: Melanoma, Other (See Below) Other Dermatologic History: malignant skin neoplasm, basal cell carcinoma, actinic keratosis, junctional nevus, seborrheic keratosis, hemangioma - Past Surgical History HEENT Surgical History: Reports: Adenoidectomy, Cataract Surgery, Tonsillectomy Other HEENT Surgeries/Procedures: BILATERAL CATARACTS REMOVED, Cardiovascular Surgical History: Reports: AICD, Carotid Stents, Coronary Artery Bypass, Coronary Artery Stent, Pacer Other Cardiovascular Surgeries/Procedures: coronary stent placemement of RCA 02/1995. CABG 1995 (triple vessel). PTCA and stenting of LAD 10/15/03. PTCA with stenting (bare metal) to LAD 10/23/03. PTCA with drug eluding stent to LAD 12/01/03. cardiac catheterization (no intervention) 12/26/03. cardiac catheterization (no intervention) 09/18/05. cardiac catheterization (no intervention) 03/04/07. PTCA with drug eluding stent to LAD 06/16/10. PTCA with stenting (bare metal) to vein graft to R coronary artery 01/31/13. Coronary angioplasty proximal LAD in-stent restenosis with m synergy 09/11/16 GI Surgical History: Reports: Appendectomy, Colonoscopy, EGD Neurological Surgical History: Reports: Other (See Below) Other Neurological Surgeries/Procedures: PT REPORTS 2X BACK SURGERIES ONCE TO THORACIC, ONCE TO LUMBAR Musculoskeletal Surgical History: Reports: Shoulder Surgery Other Musculoskeletal Surgeries/Procedures:: bilateral rotator cuff tears and repairs (different times) Other Oncologic Surgeries/Procedures: MELANOMA OF BACK - EXCISED Dermatological Surgical History: Reports: Skin Biopsy Social & Family History - Caffeine Use Caffeine Use: Reports: None - Living Situation & Occupation Living situation: Reports: (His 83-year-old is at home and is developing quite significant dementia at this time. He is therefore doing most of care and cooking.), with Spouse Occupation: Retired ED ROS ENT - Review of Systems Review Of Systems: See Below Constitutional: Reports: Malaise, Weakness, Fatigue. Denies: Fever, Chills HEENT: Reports: Nosebleed (Left anterior nasal spine septal hemorrhage identified on 2 previous occasions) Respiratory: Reports: Shortness of Breath. Denies: Wheezing, Pleuritic Chest Pain, Cough Cardiovascular: Reports: Blood Pressure Problem, Dyspnea on Exertion. Denies: Claudication, Edema, Lightheadedness, Orthopnea Endocrine: Reports: Fatigue GI/Abdominal: Reports: Constipation (Occasional problems) : Reports: Frequency, Other (Nocturia 2) Musculoskeletal: Reports: Joint Pain (Knees hips low back and neck and shoulders at times) Skin: Reports: Bruising (Bruises easily due to being on Coumadin) Neurological: Reports: No Symptoms Psychiatric: Reports: No Symptoms Hematologic/Lymphatic: Reports: No Symptoms Immunologic: Reports: No Symptoms ED EXAM, ENT - Physical Exam Exam: See Below Exam Limited By: No Limitations General Appearance: Alert, WD/WN, Anxious, Moderate Distress, Other (Is spitting up fresh blood and some clots.) Nose: Active Bleeding (Left naris.), Other (Removal of nasal packing i.e. Vaseline to guys from the left neck anterior naris showed the packing to be moderately soaked with blood. On inspection there appears to be mild oozing of bright red blood from the anterior nasal septum. Once again this area was cauterized with silver nitrate her position as it was before may be slightly anterior to it. As soon as he became activated gargled and spit up blood and clot from the posterior oropharynx is nose again started to bleed.) Mouth/Throat: Other (There is some blood clots in the posterior oropharynx and the roof of his mouth and posterior for sarcoid covered occluded with dried blood some of it by red as well.) Head: Atraumatic, Normocephalic Neck: Normal Inspection, Supple, Non-Tender, Full Range of Motion Respiratory/Chest: No Respiratory Distress, Lungs Clear, Normal Breath Sounds, Decreased Breath Sounds (Decreased air into the lower 25% of lung bond.) Cardiovascular: Normal Peripheral Pulses, Regular Rate, Rhythm, No Edema, No Murmur, No Rub Course - Vital Signs Last Recorded V/S: Last Vital Signs Temp 36.6 C 10/23/18 01:40 Pulse 75 10/23/18 01:40 Resp 18 10/23/18 01:40 BP 126/49 L 10/23/18 01:40 Pulse Ox 96 10/23/18 01:40 - Orders/Labs/Meds Meds: Medications Discontinued Medications Generic Name Dose Route Start Last Admin Trade Name Freq PRN Reason Stop Dose Admin Lorazepam 0.5 mg 10/23/18 01:53 10/23/18 02:07 Ativan PO 10/23/18 01:54 0.5 mg ONETIME ONE Administration Ondansetron HCl 4 mg 10/23/18 01:52 10/23/18 02:07 Zofran Odt PO 10/23/18 01:53 4 mg ONETIME ONE Administration Oxycodone/Acetaminophen 1 tab 10/23/18 01:53 10/23/18 02:07 Percocet 325-5 Mg PO 10/23/18 01:54 1 tab ONETIME ONE Administration - Radiology Interpretation Free Text/Narrative:: 83-year-old male presents to the ED with recurrent bleeding from the left naris. As far as I can ascertain it is still an anterior nosebleed. However there is a large amount of blood coating the posterior oropharynx and the roof of his mouth suggesting possible posterior component. It's difficult to ascertain as he was lying down when he developed recurrent nosebleed. At any rate as soon as I cauterized the area that was suspicious and he sat up he started to have a vigorous pouring of blood from his left naris. Therefore a 7.5 cm Rhino Rocket was placed to provide pressure in the posterior anterior naris. Plan will be to keep him here the rest of the night to get make sure that we have gain control of his epistaxis left naris. - Re-Assessments/Exams Free Text/Narrative Re-Assessment/Exam: 10/23/18 02:27 on recheck he does have a small clot in his right upper loss of palatine fold. There is no blood oozing down the posterior oropharynx since the 7.5 cm Rhino Rocket was placed. The anterior nares is also dry. Patient has been given 1 Percocet 5/325 mg tablet and an Ativan 0.5 mg tablet and Zofran 4 mg sublingual to provide some degree of sedation and hopefully allow him to sleep in the ED. He will be observed in the ED for the next 5-6 hours 10/23/18 03:38 patient has been able to fall asleep with the medications. O2 sats will drop into the 70s at times. Patient has known sleep apnea syndrome. 10/23/18 04:32 no evidence of further nose bleeding has occurred since observation in the ED. 10/23/18 06:49 again no further evidence of bleeding from his nose. He states he feels great after sleeping in the ED overnight. Discharged home in the care of his daughter came to pick him up. The Rhino Rocket will need to be removed in 2 days time. They already have a pre-existing appointment with Dr. Luo at 1645 hrs. on which is suitable time to have it removed. Departure - Departure Time of Disposition: 06:49 Disposition: Home, Self-Care 01 Condition: Fair Clinical Impression: Recurrent epistaxis - Discharge Information *PRESCRIPTION DRUG MONITORING PROGRAM REVIEWED*: Not Applicable *COPY OF PRESCRIPTION DRUG MONITORING REPORT IN PATIENT RICHELLE: Not Applicable Instructions: Nosebleed, [id number] Referrals: Ganesh Luo MD [Primary Care Provider] - Forms: ED Department Discharge Additional Instructions: Evaluation in the emergency for the third time in 8 hours due to recurrent left- sided nasal bleeding. Initial treatment was cauterization which seemed to bring the bleeding under control but shortly after getting home bleeding started up again and this time was little more extensive. Repeat cauterization was performed and left anterior naris nasal pack was performed with Vaseline Tubegauze. Then he started to notice blood down the back of the throat from the nose. Therefore a left anterior nasal pack i.e. Rhino Rocket was placed which places pressure on both the posterior and anterior aspect of the nose too stop hemorrhage which it did successfully while you in the ED. Rhino Rocket is to remain in place for the next 48 hours. It could be removed on Sunday p.m. preferably a Dr. Luo`s office. May take Tylenol 650 mg every 4 hours as needed for pain relief. Return to the ED if any further nasal bleeding occurs.
[2018-10-23] MEDS ORDERED: Ondansetron 4 MG Tab.DIS PO ONE (01:52)
[2018-10-23] MEDS ORDERED: Acetaminophen/oxyCODONE 325-5 MG Tab PO ONE (01:53)
[2018-10-23] MEDS ORDERED: LORazepam 0.5 MG Tab PO ONE (01:53)
[2018-10-23 02:26] VITALS: BP 126/49
== END 2018-10-23 06:50 | disposition home or self-care (01) ==
LOC: JD.ED 01:36
DX: R04.0 Epistaxis (principal); I48.91 Unspecified atrial fibrillation; E78.00 Pure hypercholesterolemia, unspecified; I25.10 Atherosclerotic heart disease of native coronary artery without angina pectoris; E11.22 Type 2 diabetes mellitus with diabetic chronic kidney disease; I13.0 Hypertensive heart and chronic kidney disease with heart failure and stage 1 through stage 4 chronic kidney disease, or unspecified chronic kidney disease; N18.9 Chronic kidney disease, unspecified; I50.9 Heart failure, unspecified; I25.2 Old myocardial infarction; Z95.0 Presence of cardiac pacemaker; Z79.01 Long term (current) use of anticoagulants; Z79.02 Long term (current) use of antithrombotics/antiplatelets; Z79.4 Long term (current) use of insulin; Z79.891 Long term (current) use of opiate analgesic; Z79.899 Other long term (current) drug therapy; Z88.1 Allergy status to other antibiotic agents; Z88.8 Allergy status to other drugs, medicaments and biological substances; Z98.49 Cataract extraction status, unspecified eye; Z98.890 Other specified postprocedural states; Z90.89 Acquired absence of other organs
CPT/HCPCS: 30903; 99283; A9270

== ENCOUNTER 2019-01-03 17:30 | Emergency (ER) | payer MEDICARE, OTHER ==
[2019-01-03 17:51] VITALS: BP 113/50
[2019-01-03] MEDS ORDERED: Sodium Chloride 0.9% 10 ML Syringe FLUSH PRN (18:24)
[2019-01-03] MEDS ORDERED: Furosemide 40 MG/4 ML VIAL IVPUSH ONE (18:26)
--- NOTE | 2019-01-03 18:27 | EDM.PDOC ---
ED HPI GENERAL MEDICAL PROBLEM - General Chief Complaint: Respiratory Problem Stated Complaint: SOB - LOW O2 Time Seen by Provider: 01/03/19 19:10 Source of Information: Reports: Patient, Family (daughter) History Limitations: Reports: No Limitations - History of Present Illness INITIAL COMMENTS - FREE TEXT/NARRATIVE: Patient has terminal COPD. He has been more short of breath over the last month. States he gasps for air at times. Uses oxygen primarily at night but not much during the day. Usually 2 L/m. Is a history of severe peripheral vascular disease with claudication both lower extremities and therefore his walking pain in his calves is gradually getting worse. He has no appointment next week to see the vascular surgeon to see if anything further can be done about this. O2 sats are 91% on room air. Onset: Gradual Duration: Day(s):, Getting Worse, Intermittent, Waxing/Waning Location: Reports: Chest (Dyspnea) Quality: Reports: Ache, Burning, Throbbing, Other (In lower extremities.) Severity: Severe (Skin on exertion with occasional sputum production) Improves with: Reports: Rest (Dear lower extremity pain.) Worsens with: Reports: Movement Context: Reports: Other (He is immobile for the most part because of claudication his lower extremities and COPD.). Denies: Activity, Exercise ( Walking makes the pain in his legs much worse), Lifting, Sick Contact, Trauma Associated Symptoms: Reports: Cough, cough w sputum, Malaise. 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 (see below) (Medications that have been prescribed to him.) - Related Data Allergies Allergy/AdvReac Type Severity Reaction Status Date / Time latex Allergy Unknown Cannot Verified 10/22/18 19:24 Remember adhesive Allergy Hives Verified 10/22/18 19:24 celecoxib Allergy Cannot Verified 10/22/18 19:24 Remember clopidogrel Allergy Cannot Verified 10/22/18 19:24 Remember ramipril [From Altace] Allergy Itching Verified 10/22/18 19:24 rofecoxib [From Vioxx] Allergy Edema Verified 10/22/18 19:24 sertraline Allergy Cannot Verified 10/22/18 19:24 Remember simvastatin Allergy Edema Verified 10/22/18 19:24 valsartan Allergy Cannot Verified 10/22/18 19:24 Remember chlordiazepoxide AdvReac Confusion Verified 10/22/18 19:24 clidinium [Clidinium] AdvReac Confusion Verified 10/22/18 19:24 pregabalin [From Lyrica] AdvReac Confusion Verified 10/22/18 19:24 Home Meds: Home Meds Chromium Picolinate 200 mcg PO DAILY 06/27/15 [History] Digoxin [Lanoxin] 125 mcg PO DAILY 06/27/15 [History] Diltiazem HCl [Diltiazem 24Hr ER] 240 mg PO DAILY 06/27/15 [History] Furosemide [Lasix] 40 mg PO DAILY 06/27/15 [History] Glimepiride [Amaryl] 4 mg PO DAILY 06/27/15 [History] Insulin Glarg,Human.Rec.Analog [LantUS Solostar] 80 units SUBCUT DAILY 06/27/15 [History] Metoprolol Succinate [Toprol XL] 100 mg PO BID 06/27/15 [History] Omeprazole 40 mg PO QAM 06/27/15 [History] Cholecalciferol (Vitamin D3) [Vitamin D3] 1,000 unit PO DAILY 02/25/16 [History] Flaxseed Oil [Flaxseed] 1,000 mg PO DAILY 09/08/16 [History] Nitroglycerin [Nitrostat] 0.4 mg SL Q5M PRN 09/08/16 [History] Warfarin [Coumadin] 5 mg PO SUTUTHSA 09/08/16 [History] Cyanocobalamin (Vitamin B-12) [Vitamin B-12] 500 mcg PO DAILY 06/12/17 [History] Isosorbide Mononitrate [Imdur] 60 mg PO DAILY 06/12/17 [History] Terazosin HCl [Terazosin] 5 mg PO QAM 06/12/17 [History] Valsartan 160 mg PO DAILY 06/12/17 [History] Warfarin [Coumadin] 2.5 mg PO MOWEFR 06/12/17 [History] atorvaSTATin [Lipitor] 40 mg PO DAILY 06/12/17 [History] Multivit-Min/FA/Lutein/Zeaxant [Macular Vitamin Tablet] 1 tab PO DAILY 11/15/17 [History] Antiiva 2 tab PO DAILY 01/12/18 [History] Clopidogrel [Plavix] 75 mg PO DAILY 01/12/18 [History] Omeprazole 20 mg PO QPM 01/12/18 [History] Terazosin HCl [Terazosin] 10 mg PO BEDTIME 01/12/18 [History] Bacitracin/Polymyxin B Sulfate [Polysporin Ointment] 1 each TP DAILY #1 tube [Rx] Past Medical History HEENT History: Reports: Cataract Other HEENT History: has glasses, wears dentures Cardiovascular History: Reports: Afib, Angina, CAD, Heart Murmur, High Cholesterol, Hypertension, [place], Pacemaker, Other (See Below) Other Cardiovascular History: pad,chf Respiratory History: Reports: Sleep Apnea, SOB Other Respiratory History: does not use CPAP, has wheezing and history of pneumonia Gastrointestinal History: Reports: Colon Polyp, Hemorrhoids, PUD Other Gastrointestinal History: melanosis of coli, diverticulosis, small bowel obstruction, increased liver enzymes, chavis's esophagus Genitourinary History: Reports: BPH Other Genitourinary History: CHRONIC RENAL INSUFFICIENCY 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 Musculoskeletal History: Reports: Other (See Below) Other Musculoskeletal History: Right elbow olecranon bursitis, rotator cuff tear Neurological History: Reports: CVA, Vertigo Psychiatric History: Reports: None Endocrine/Metabolic History: Reports: Diabetes, Type II Hematologic History: Reports: None Immunologic History: Reports: None Oncologic (Cancer) History: Reports: Basal Cell Carcinoma Dermatologic History: Reports: Melanoma, Other (See Below) Other Dermatologic History: malignant skin neoplasm, basal cell carcinoma, actinic keratosis, junctional nevus, seborrheic keratosis, hemangioma - Past Surgical History HEENT Surgical History: Reports: Adenoidectomy, Cataract Surgery, Tonsillectomy Other HEENT Surgeries/Procedures: BILATERAL CATARACTS REMOVED, Cardiovascular Surgical History: Reports: AICD, Carotid Stents, Coronary Artery Bypass, Coronary Artery Stent, Pacer Other Cardiovascular Surgeries/Procedures: coronary stent placemement of RCA 02/1995. CABG 1995 (triple vessel). PTCA and stenting of LAD 10/15/03. PTCA with stenting (bare metal) to LAD 10/23/03. PTCA with drug eluding stent to LAD 12/01/03. cardiac catheterization (no intervention) 12/26/03. cardiac catheterization (no intervention) 09/18/05. cardiac catheterization (no intervention) 03/04/07. PTCA with drug eluding stent to LAD 06/16/10. PTCA with stenting (bare metal) to vein graft to R coronary artery 01/31/13. Coronary angioplasty proximal LAD in-stent restenosis with m synergy 09/11/16 GI Surgical History: Reports: Appendectomy, Colonoscopy, EGD Neurological Surgical History: Reports: Other (See Below) Other Neurological Surgeries/Procedures: PT REPORTS 2X BACK SURGERIES ONCE TO THORACIC, ONCE TO LUMBAR Musculoskeletal Surgical History: Reports: Shoulder Surgery Other Musculoskeletal Surgeries/Procedures:: bilateral rotator cuff tears and repairs (different times) Other Oncologic Surgeries/Procedures: MELANOMA OF BACK - EXCISED Dermatological Surgical History: Reports: Skin Biopsy Social & Family History - Family History Family Medical History: Noncontributory - Caffeine Use Caffeine Use: Reports: None - Living Situation & Occupation Living situation: Reports: (His 83-year-old is at home and is developing quite significant dementia at this time. He is therefore doing most of care and cooking.), with Spouse Occupation: Retired ED ROS GENERAL - Review of Systems Review Of Systems: See Below Constitutional: Reports: Malaise, Weakness, Fatigue, Decreased Appetite, Weight Loss. Denies: Fever, Chills HEENT: Reports: Glasses Respiratory: Reports: Shortness of Breath, Wheezing, Cough, Sputum, Other. Denies: Pleuritic Chest Pain Cardiovascular: Reports: Claudication, Dyspnea on Exertion, Edema, Lightheadedness. Denies: Chest Pain (Terminal COPD.), Blood Pressure Problem, Orthopnea GI/Abdominal: Reports: Constipation : Reports: Frequency, Other Musculoskeletal: Reports: Neck Pain (Especially knees hips neck and shoulders), Shoulder Pain, Back Pain (BPH usually up 3 times a night.), Joint Pain Skin: Reports: Other Neurological: Reports: No Symptoms (Bruises easily.) Psychiatric: Reports: No Symptoms Hematologic/Lymphatic: Reports: No Symptoms Immunologic: Reports: No Symptoms ED EXAM, GENERAL - Physical Exam Exam: See Below Exam Limited By: No Limitations General Appearance: Alert, WD/WN, Mild Distress, Other (Mild a crescentic cyanosis. Respiratory rate of 20 with sats of 91% on room air.) Eye Exam: Bilateral Eye: Normal Inspection (No sclera icterus.) Throat/Mouth: Other (Tongue is mildly dry and coated.) Head: Atraumatic, Normocephalic Neck: Normal Inspection, Supple, Non-Tender, Full Range of Motion. No: Carotid Bruit, Lymphadenopathy (L), Lymphadenopathy (R) Respiratory/Chest: Respiratory Distress, Decreased Breath Sounds (Mild tachypnea at rest.), Rhonchi, Wheezing. No: Rales ( Diminished breath sounds the lower 30% of lung bond bilaterally.) Cardiovascular: Regular Rate, Rhythm, No Edema, No Gallop, No Murmur, No Rub. No: Normal Peripheral Pulses (Added wheezing and rhonchi. He has no pulses palpable below his femorals.) Peripheral Pulses: 0: Popliteal (L), Popliteal (R), Posterior Tibial (L), Posterior Tibial (R), Dorsalis Pedis (L), Dorsalis Pedis (R), 1+: Femoral (L), Femoral (R), 2+: Carotid (L), Carotid (R), Radial (L), Radial (R) GI/Abdominal: Normal Bowel Sounds, Soft, Non-Tender, No Organomegaly, No Abnormal Bruit (Moderately obese.), No Mass, Pelvis Stable, Other Back Exam: Normal Inspection. No: Full Range of Motion, CVA Tenderness (L), CVA Tenderness (R) Extremities: Other (Patient's lower extremity is a very cool to touch. No pulses are palpable below the femorals. Palpation of the calves is tender even to firm palpation.). No: Normal Range of Motion, Normal Capillary Refill Neurological: Alert, Oriented, CN II-XII Intact, Normal Cognition Psychiatric: Anxious, Other (In a good deal of pain.) Skin Exam: Cool, Cyanosis (A William cyanosis of his lower extremities.) Course - Vital Signs Last Recorded V/S: Last Vital Signs Temp 36.5 C 01/03/19 17:50 Pulse 78 01/03/19 17:50 Resp 20 01/03/19 17:50 BP 113/50 L 01/03/19 17:50 Pulse Ox 91 L 01/03/19 17:50 - Orders/Labs/Meds Labs: Laboratory Tests 01/03/19 01/03/19 01/03/19 Range/Units 18:50 18:50 18:50 WBC 5.93 (4.23-9.07) K/mm3 RBC 2.81 L (4.63-6.08) M/mm3 Hgb 7.6 L (13.7-17.5) gm/L Hct 25.9 L (40.1-51.0) % MCV 92.2 (79.0-92.2) fl MCH 27.0 (25.7-32.2) pg MCHC 29.3 L (32.2-35.5) g/dl RDW Std Deviation 58.6 H (35.1-43.9) fL Plt Count 223 (163-337) K/mm3 MPV 9.2 L (9.4-12.3) fl Neutrophils % (Manual) 80 H (40-60) % Band Neutrophils % 0 (0-10) % Lymphocytes % (Manual) 12 L (20-40) % Atypical Lymphs % 0 % Monocytes % (Manual) 5 (2-10) % Eosinophils % (Manual) 1 (0.8-7.0) % Basophils % (Manual) 2 H (0.2-1.2) Platelet Estimate Adequate Hypochromasia 1+ slight Poikilocytosis 1+ slight Anisocytosis 1+ slight Ovalocytes 1+ slight Schistocytes Few RBC Morph Comment Not Reportable PT 24.5 H (9.5-12.1) SECONDS INR 2.28 Sodium 141 (136-145) mEq/L Potassium 4.2 (3.5-5.1) mEq/L Chloride 105 (98-107) mEq/L Carbon Dioxide 26 (21-32) mEq/L Anion Gap 14.2 (5-15) BUN 30 H (7-18) mg/dL Creatinine 1.5 H (0.7-1.3) mg/dL Est Cr Clr Drug Dosing 33.66 mL/min Estimated GFR (MDRD) 44 (>60) mL/min BUN/Creatinine Ratio 20.0 H (14-18) Glucose 113 (83-115) mg/dL Calcium 8.7 (8.5-10.1) mg/dL Magnesium (1.8-2.4) mg/dl Total Bilirubin 0.7 (0.2-1.0) mg/dL AST 31 (15-37) U/L ALT 27 (16-63) U/L Alkaline Phosphatase 91 (46-116) U/L CK-MB (CK-2) 1.9 (0-3.6) ng/ml Troponin I 0.024 (0.00-0.056) ng/mL C-Reactive Protein 2.2 H* (<1.0) mg/dL NT-Pro-B Natriuret Pep (0-450) pg/mL Total Protein 7.2 (6.4-8.2) g/dl Albumin 3.4 (3.4-5.0) g/dl Globulin 3.8 gm/dL Albumin/Globulin Ratio 0.9 L (1-2) 01/03/19 01/03/19 Range/Units 18:50 18:50 WBC (4.23-9.07) K/mm3 RBC (4.63-6.08) M/mm3 Hgb (13.7-17.5) gm/L Hct (40.1-51.0) % MCV (79.0-92.2) fl MCH (25.7-32.2) pg MCHC (32.2-35.5) g/dl RDW Std Deviation (35.1-43.9) fL Plt Count (163-337) K/mm3 MPV (9.4-12.3) fl Neutrophils % (Manual) (40-60) % Band Neutrophils % (0-10) % Lymphocytes % (Manual) (20-40) % Atypical Lymphs % % Monocytes % (Manual) (2-10) % Eosinophils % (Manual) (0.8-7.0) % Basophils % (Manual) (0.2-1.2) Platelet Estimate Hypochromasia Poikilocytosis Anisocytosis Ovalocytes Schistocytes RBC Morph Comment PT (9.5-12.1) SECONDS INR Sodium (136-145) mEq/L Potassium (3.5-5.1) mEq/L Chloride (98-107) mEq/L Carbon Dioxide (21-32) mEq/L Anion Gap (5-15) BUN (7-18) mg/dL Creatinine (0.7-1.3) mg/dL Est Cr Clr Drug Dosing mL/min Estimated GFR (MDRD) (>60) mL/min BUN/Creatinine Ratio (14-18) Glucose (83-115) mg/dL Calcium (8.5-10.1) mg/dL Magnesium 2.2 (1.8-2.4) mg/dl Total Bilirubin (0.2-1.0) mg/dL AST (15-37) U/L ALT (16-63) U/L Alkaline Phosphatase (46-116) U/L CK-MB (CK-2) (0-3.6) ng/ml Troponin I (0.00-0.056) ng/mL C-Reactive Protein (<1.0) mg/dL NT-Pro-B Natriuret Pep 2928 H (0-450) pg/mL Total Protein (6.4-8.2) g/dl Albumin (3.4-5.0) g/dl Globulin gm/dL Albumin/Globulin Ratio (1-2) Meds: Medications Discontinued Medications Generic Name Dose Route Start Last Admin Trade Name Freq PRN Reason Stop Dose Admin Furosemide 60 mg 01/03/19 18:26 01/03/19 18:49 Lasix IVPUSH 01/03/19 18:27 60 mg NOW ONE Administration Sodium Chloride 10 ml 01/03/19 18:24 01/03/19 18:49 Saline Flush FLUSH 10 ml ASDIRECTED PRN Administration Keep Vein Open - Radiology Interpretation Free Text/Narrative:: 83-year-old male presents the ED with claudication symptoms that have been gradually worsening for the last several years. Worse the last month or 2. No gangrene yet in his toes. He is set up to see a vascular surgeon next week. He has chronic terminal COPD for which there is not much else that can be done either. Plan routine labs will be obtained to make sure that he is not in failure. Dr. Garner will be seeing him when he arrives at change of shift 1900 hrs. - Re-Assessments/Exams Free Text/Narrative Re-Assessment/Exam: 01/03/19 20:18 Labs reveal a normal white count at 5.93. He is anemic with a hemoglobin of 7.6. Hematocrit is 25.9. Platelet count is 223,000. Neutrophils are 80%. PT is 24.5 with an INR of 2.28. Sodium 141 with potassium of 4.2. Chloride 105 with a bicarbonate of 26. And a gap is 14.2. BUN is 30 with a creatinine of 1.5. GFR is 44 stage III chronic kidney disease. Glucose 113 with a calcium of 8.7. Magnesium 2.2 with a bilirubin of 0.7. AST is 31 with an ALT of 27. Alk phosphatase is 91. Troponin I is less than 0.024. C-reactive protein is 2.2. BNP is 2928. Donna 7.2 with an albumin fraction of 3.4. I have simply ordered the labs on this patient. Dr. Garner will be seeing him in consultation. Departure - Departure Time of Disposition: 21:44 Disposition: Home, Self-Care 01 Clinical Impression: Dyspnea on exertion, Bilateral lower extremity edema, Paresthesia of both feet , Bilateral claudication of lower limb, Chronic renal insufficiency CHF (congestive heart failure) Qualifiers: Qualified Code(s): I50.32 - Chronic diastolic (congestive) heart failure Anemia Qualifiers: Anemia type: unspecified type Qualified Code(s): D64.9 - Anemia, unspecified - Discharge Information Instructions: Shortness of Breath, Adult, [id number] Referrals: Ganesh Luo MD [Primary Care Provider] - Forms: ED Department Discharge Additional Instructions: You were seen in the emergency room for shortness of breath with exertion for the past 2-3 months, a burning sensation in both of your legs when you walk, for the past 2-3 weeks, swelling/edema of both of her legs, and numbness/ tingling to both of your feet. Workup in the ER included blood work, a chest x-ray, and an ECG. An ankle- brachial index (PEDRO) was also attempted. With respect to your shortness of breath with exertion, it is most likely due to congestive heart failure, however, it may also be contributed to by pulmonary hypertension, as you have obstructive sleep apnea, but do not wear CPAP or BiPAP. You do not have pneumonia, and a blood clot in your lungs is highly unlikely, because your Coumadin is therapeutic with an INR of 2.28. At this time, we are not recommending any change in her medication. With respect to the burning sensation in both of your legs when you walk, this is most likely due to a peripheral vascular disease = narrowing of the arteries going to your legs, due to atherosclerosis. That being said, both of your feet are warm, and the PEDRO that we were able to measure was normal at 1.18. Emergency surgery is not indicated. Please follow-up with your vascular surgeon at [facility] at your previously scheduled appointment 01/29/2019. With respect to the swelling/edema of your lower extremities, this is most likely due to venous insufficiency, although it could also be due to right heart failure. We are recommending that you wear compression stockings. Have them put on each morning, and taken off before you go to bed at night. In addition, try to elevate both of your lower extremities as much as possible when you are not walking around. With respect to the numbness felt in both of your feet, this is most likely due to diabetic neuropathy = nerve damage due to diabetes, although it could also be related to your nerve impingement from your lower back, or even nerve impingement from your lower extremity edema. Please follow-up with Dr. Luo in this regard. With respect to your anemia, your hemoglobin today was found to be 7.6. It was 9.3 on 10/22/2018. It is possible that your hemoglobin has dropped because of your recent nosebleeds, or because of some other bleeding, or because your bone marrow is not making enough blood. The option of a blood transfusion was discussed, but decided against, however, we recommend that you follow-up with Dr. Luo in this regard, as well. He may want you to have an outpatient blood transfusion. If any other problems, please do not hesitate to return to the ER.
--- NOTE | 2019-01-03 19:58 | EDM.PDOC ---
ED HPI GENERAL MEDICAL PROBLEM - General Chief Complaint: Respiratory Problem Stated Complaint: SOB - LOW O2 Time Seen by Provider: 01/03/19 18:50 Source of Information: Reports: Patient, Family (Daughter), RN Notes Reviewed History Limitations: Reports: No Limitations - History of Present Illness INITIAL COMMENTS - FREE TEXT/NARRATIVE: The patient states that he has had dyspnea on exertion for the past 2-3 months. He reports a burning sensation to both of his lower extremities when he walks even a relatively short distance, for the past 2-3 weeks. He also reports chronic bilateral lower extremity edema and bilateral feet paresthesia. The patient denies recent chest pain or palpitations. No recent cough or fever. No wheezing. 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 He has obstructive sleep apnea and is noncompliant with CPAP or BiPAP, however, he does not have any underlying lung disease, such as asthma or COPD. The patient states that he saw his PCP about 2 weeks ago, and that his PCP recommended that the patient follow-up with the Interventional Radiologist Dr. Karen Rosales, with whom the patient had undergone lower extremity angioplasty in January and July 2018. The patient has an appointment to see Dr. Rosales to have an ankle brachial index performed on 01/29/2019, however, he appears to want an PEDRO performed and relief of his symptoms now. The patient's PCP is Dr. Luo. - Related Data Allergies Allergy/AdvReac Type Severity Reaction Status Date / Time latex Allergy Unknown Cannot Verified 10/22/18 19:24 Remember adhesive Allergy Hives Verified 10/22/18 19:24 celecoxib Allergy Cannot Verified 10/22/18 19:24 Remember clopidogrel Allergy Cannot Verified 10/22/18 19:24 Remember ramipril [From Altace] Allergy Itching Verified 10/22/18 19:24 rofecoxib [From Vioxx] Allergy Edema Verified 10/22/18 19:24 sertraline Allergy Cannot Verified 10/22/18 19:24 Remember simvastatin Allergy Edema Verified 10/22/18 19:24 valsartan Allergy Cannot Verified 10/22/18 19:24 Remember chlordiazepoxide AdvReac Confusion Verified 10/22/18 19:24 clidinium [Clidinium] AdvReac Confusion Verified 10/22/18 19:24 pregabalin [From Lyrica] AdvReac Confusion Verified 10/22/18 19:24 Home Meds: Home Meds Chromium Picolinate 200 mcg PO DAILY 06/27/15 [History] Digoxin [Lanoxin] 125 mcg PO DAILY 06/27/15 [History] Diltiazem HCl [Diltiazem 24Hr ER] 240 mg PO DAILY 06/27/15 [History] Furosemide [Lasix] 40 mg PO DAILY 06/27/15 [History] Glimepiride [Amaryl] 4 mg PO DAILY 06/27/15 [History] Insulin Glarg,Human.Rec.Analog [LantUS Solostar] 80 units SUBCUT DAILY 06/27/15 [History] Metoprolol Succinate [Toprol XL] 100 mg PO BID 06/27/15 [History] Omeprazole 40 mg PO QAM 06/27/15 [History] Cholecalciferol (Vitamin D3) [Vitamin D3] 1,000 unit PO DAILY 02/25/16 [History] Flaxseed Oil [Flaxseed] 1,000 mg PO DAILY 09/08/16 [History] Nitroglycerin [Nitrostat] 0.4 mg SL Q5M PRN 09/08/16 [History] Warfarin [Coumadin] 5 mg PO SUTUTHSA 09/08/16 [History] Cyanocobalamin (Vitamin B-12) [Vitamin B-12] 500 mcg PO DAILY 06/12/17 [History] Isosorbide Mononitrate [Imdur] 60 mg PO DAILY 06/12/17 [History] Terazosin HCl [Terazosin] 5 mg PO QAM 06/12/17 [History] Valsartan 160 mg PO DAILY 06/12/17 [History] Warfarin [Coumadin] 2.5 mg PO MOWEFR 06/12/17 [History] atorvaSTATin [Lipitor] 40 mg PO DAILY 06/12/17 [History] Multivit-Min/FA/Lutein/Zeaxant [Macular Vitamin Tablet] 1 tab PO DAILY 11/15/17 [History] Antiiva 2 tab PO DAILY 01/12/18 [History] Clopidogrel [Plavix] 75 mg PO DAILY 01/12/18 [History] Omeprazole 20 mg PO QPM 01/12/18 [History] Terazosin HCl [Terazosin] 10 mg PO BEDTIME 01/12/18 [History] Bacitracin/Polymyxin B Sulfate [Polysporin Ointment] 1 each TP DAILY #1 tube [Rx] Past Medical History HEENT History: Reports: Impaired Vision Other HEENT History: has glasses, wears dentures Cardiovascular History: Reports: Afib, CAD, Heart Failure, High Cholesterol, Hypertension, PR (1995), PVD Respiratory History: Reports: Sleep Apnea (noncompliant with CPAP/BiPAP) Gastrointestinal History: Reports: Colon Polyp, Diverticulosis, GERD (with [place] esophagus), Hemorrhoids, PUD Genitourinary History: Reports: BPH, Chronic Renal Insuffiency Neurological History: Reports: CVA (affecting left eye, 2003), Vertigo Endocrine/Metabolic History: Reports: Diabetes, Type II, Obesity/BMI 30+ Oncologic (Cancer) History: Reports: Basal Cell Carcinoma, Malignant Melanoma ( to back) - Past Surgical History HEENT Surgical History: Reports: Adenoidectomy, Cataract Surgery, Tonsillectomy Cardiovascular Surgical History: Reports: Coronary Artery Bypass (x 3 vessel, 1995), Coronary Artery Stent (Stent to RCA 09/11/1995. Stent to LAD 10/15/03. Bare metal stent to LAD 10/23/03. Drug eluding stent to LAD 12/01/03. Drug eluding stent to LAD 06/16/10. Bare metal stent to vein graft to RCA 01/31/13. Coronary angioplasty proximal LAD in-stent restenosis with m synergy 09/11/16.) , Pacer (left), Other (See Below) (Coronary angiogram without intervention 12/25, 09/18/05, 03/04/07. Lower extremity angioplasty January and July 2018.) GI Surgical History: Reports: Appendectomy, Colonoscopy, EGD Neurological Surgical History: Reports: Lumbar Spine, Thoracic Spine Musculoskeletal Surgical History: Reports: Shoulder Surgery (bilateral) Oncologic Surgical History: Reports: Other (See Below) (Melanoma excised off back) Social & Family History - Family History Family Medical History: Noncontributory - Tobacco Use Smoking Status *Q: Former Smoker Month/Year Tobacco Last Used: Quit 1995 - Caffeine Use Caffeine Use: Reports: Tea - Recreational Drug Use Recreational Drug Use: No - Living Situation & Occupation Living situation: Reports: (His 83-year-old is at home and is developing quite significant dementia at this time. He is therefore doing most of care and cooking.), with Spouse Occupation: Retired ED ROS GENERAL - Review of Systems Review Of Systems: ROS reveals no pertinent complaints other than HPI. ED EXAM, GENERAL - Physical Exam Exam: See Below Exam Limited By: No Limitations General Appearance: Alert, WD/WN, No Apparent Distress Eye Exam: Bilateral Eye: EOMI, Normal Inspection Ears: Normal External Exam, Hearing Loss (bilateral hearing aids) Nose: Normal Inspection Throat/Mouth: Normal Inspection, Normal Lips, Normal Voice, No Airway Compromise Head: Atraumatic, Normocephalic Neck: Normal Inspection, Full Range of Motion Respiratory/Chest: No Respiratory Distress, No Accessory Muscle Use, Decreased Breath Sounds. No: Crackles, Rhonchi, Wheezing, Prolonged Expiration Cardiovascular: Normal Peripheral Pulses, Regular Rate, Rhythm, No Gallop, No JVD, No Murmur, No Rub Peripheral Pulses: 3+: Radial (L), Radial (R) GI/Abdominal: Normal Bowel Sounds, Soft, Non-Tender, No Organomegaly, No Distention, No Abnormal Bruit, No Mass, Other (Obese) (Male) Exam: Deferred Rectal (Males) Exam: Deferred Back Exam: Normal Inspection, Full Range of Motion, NT Extremities: Normal Range of Motion, Other (2-3+ pitting pretibial edema left lower extremity, 1-2+ pitting pretibial edema right lower extremity. Both feet are warm to palpation, although bilateral dorsalis pedis and posterior tibialis pulses are not palpable.) Neurological: Alert, Oriented, CN II-XII Intact, Normal Cognition, Normal Gait, Normal Reflexes, No Motor/Sensory Deficits Psychiatric: Normal Affect Skin Exam: Warm, Dry, Intact, Normal Color, No Rash EKG INTERPRETATION EKG Date: 01/03/19 Time: 18:45 Rhythm: Other (Ventricularly paced) Rate (Beats/Min): 82 Comparison: No Change (11/15/2017) Course - Vital Signs Last Recorded V/S: Last Vital Signs Temp 36.5 C 01/03/19 17:50 Pulse 78 01/03/19 17:50 Resp 20 01/03/19 17:50 BP 113/50 L 01/03/19 17:50 Pulse Ox 91 L 01/03/19 17:50 - Orders/Labs/Meds Orders: Active Orders 24 hr Category Date Time Status EKG Documentation Completion [RC] STAT Care 01/03/19 18:18 Active Oxygen Therapy [RC] ASDIRECTED Care 01/03/19 18:25 Active Peripheral IV Care [RC] . DIRECTED Care 01/03/19 18:26 Active Chest 1V Frontal [CR] Stat Exams 01/03/19 18:18 Taken Peripheral IV Insertion Adult [OM.PC] Stat Oth 01/03/19 18:18 Ordered Labs: Laboratory Tests 01/03/19 01/03/19 01/03/19 Range/Units 18:50 18:50 18:50 WBC 5.93 (4.23-9.07) K/mm3 RBC 2.81 L (4.63-6.08) M/mm3 Hgb 7.6 L (13.7-17.5) gm/L Hct 25.9 L (40.1-51.0) % MCV 92.2 (79.0-92.2) fl MCH 27.0 (25.7-32.2) pg MCHC 29.3 L (32.2-35.5) g/dl RDW Std Deviation 58.6 H (35.1-43.9) fL Plt Count 223 (163-337) K/mm3 MPV 9.2 L (9.4-12.3) fl Neutrophils % (Manual) 80 H (40-60) % Band Neutrophils % 0 (0-10) % Lymphocytes % (Manual) 12 L (20-40) % Atypical Lymphs % 0 % Monocytes % (Manual) 5 (2-10) % Eosinophils % (Manual) 1 (0.8-7.0) % Basophils % (Manual) 2 H (0.2-1.2) Platelet Estimate Adequate Hypochromasia 1+ slight Poikilocytosis 1+ slight Anisocytosis 1+ slight Ovalocytes 1+ slight Schistocytes Few RBC Morph Comment Not Reportable PT 24.5 H (9.5-12.1) SECONDS INR 2.28 Sodium 141 (136-145) mEq/L Potassium 4.2 (3.5-5.1) mEq/L Chloride 105 (98-107) mEq/L Carbon Dioxide 26 (21-32) mEq/L Anion Gap 14.2 (5-15) BUN 30 H (7-18) mg/dL Creatinine 1.5 H (0.7-1.3) mg/dL Est Cr Clr Drug Dosing 33.66 mL/min Estimated GFR (MDRD) 44 (>60) mL/min BUN/Creatinine Ratio 20.0 H (14-18) Glucose 113 (83-115) mg/dL Calcium 8.7 (8.5-10.1) mg/dL Magnesium (1.8-2.4) mg/dl Total Bilirubin 0.7 (0.2-1.0) mg/dL AST 31 (15-37) U/L ALT 27 (16-63) U/L Alkaline Phosphatase 91 (46-116) U/L CK-MB (CK-2) 1.9 (0-3.6) ng/ml Troponin I 0.024 (0.00-0.056) ng/mL C-Reactive Protein 2.2 H* (<1.0) mg/dL NT-Pro-B Natriuret Pep (0-450) pg/mL Total Protein 7.2 (6.4-8.2) g/dl Albumin 3.4 (3.4-5.0) g/dl Globulin 3.8 gm/dL Albumin/Globulin Ratio 0.9 L (1-2) 01/03/19 01/03/19 Range/Units 18:50 18:50 WBC (4.23-9.07) K/mm3 RBC (4.63-6.08) M/mm3 Hgb (13.7-17.5) gm/L Hct (40.1-51.0) % MCV (79.0-92.2) fl MCH (25.7-32.2) pg MCHC (32.2-35.5) g/dl RDW Std Deviation (35.1-43.9) fL Plt Count (163-337) K/mm3 MPV (9.4-12.3) fl Neutrophils % (Manual) (40-60) % Band Neutrophils % (0-10) % Lymphocytes % (Manual) (20-40) % Atypical Lymphs % % Monocytes % (Manual) (2-10) % Eosinophils % (Manual) (0.8-7.0) % Basophils % (Manual) (0.2-1.2) Platelet Estimate Hypochromasia Poikilocytosis Anisocytosis Ovalocytes Schistocytes RBC Morph Comment PT (9.5-12.1) SECONDS INR Sodium (136-145) mEq/L Potassium (3.5-5.1) mEq/L Chloride (98-107) mEq/L Carbon Dioxide (21-32) mEq/L Anion Gap (5-15) BUN (7-18) mg/dL Creatinine (0.7-1.3) mg/dL Est Cr Clr Drug Dosing mL/min Estimated GFR (MDRD) (>60) mL/min BUN/Creatinine Ratio (14-18) Glucose (83-115) mg/dL Calcium (8.5-10.1) mg/dL Magnesium 2.2 (1.8-2.4) mg/dl Total Bilirubin (0.2-1.0) mg/dL AST (15-37) U/L ALT (16-63) U/L Alkaline Phosphatase (46-116) U/L CK-MB (CK-2) (0-3.6) ng/ml Troponin I (0.00-0.056) ng/mL C-Reactive Protein (<1.0) mg/dL NT-Pro-B Natriuret Pep 2928 H (0-450) pg/mL Total Protein (6.4-8.2) g/dl Albumin (3.4-5.0) g/dl Globulin gm/dL Albumin/Globulin Ratio (1-2) Meds: Medications Discontinued Medications Generic Name Dose Route Start Last Admin Trade Name Freq PRN Reason Stop Dose Admin Furosemide 60 mg 01/03/19 18:26 01/03/19 18:49 Lasix IVPUSH 01/03/19 18:27 60 mg NOW ONE Administration Sodium Chloride 10 ml 01/03/19 18:24 01/03/19 18:49 Saline Flush FLUSH 10 ml ASDIRECTED PRN Administration Keep Vein Open - Re-Assessments/Exams Free Text/Narrative Re-Assessment/Exam: 01/03/19 19:54 Portable chest radiograph reviewed. Suboptimal inspiratory effort. There is cardiomegaly, but no significant pulmonary vascular congestion to suggest decompensated CHF. No pleural effusions seen on this AP view. No focal infiltrate. No pneumothorax. Sternotomy wires noted. Left-sided 2-chamber pacer noted. Absence of the lateral aspect of the patient's right clavicle incidentally noted. Formal read per the Radiologist pending. I ordered an ankle-brachial index, however, this is ordinarily performed by the data reduction technician, and they are not available at this time at night. Brenna GONZALEZ and I therefore attempted to obtain the PEDRO. The systolic BP in the right brachial artery was found to be 130 mmHg. The systolic BP in the left brachial artery was under 130 mmHg, therefore it was not used. The systolic BP in the right dorsalis pedis artery was found to be 154 mmHg, giving a RLE PEDRO of 1.18, which is normal. I was unable, however, to find a pulse by continuous-wave Doppler in the right posterior tibialis, left dorsalis pedis, or left posterior tibialis arteries. It should be noted, however, that both feet, all the way to the toes, are warm to palpation. 01/03/19 21:10 Test results discussed with the patient, his daughter, and another family member. Regarding the patient's complaint of lower extremity burning when ambulating, this is most likely due to claudication, however, his claudication is not so severe that he requires emergency intervention, as his lower extremities appear to be warm and adequately perfused. The patient has an appointment to see his Interventional Radiologist in [place] on 01/29/2019, and I recommended that he keep that appointment. With respect to the patient's lower extremity edema, which is actually his greatest concern, I feel that this is most likely due to venous insufficiency, although it could be due to a component of right heart failure, as well. Either way, I recommended that the patient start using compression stockings and elevate his lower extremities is much as possible when he is not ambulating. I am not recommending an increase in his diuretic, as the patient is already suffering from renal insufficiency, and his CHF is not decompensated. With respect to the patient's complaint of bilateral feet numbness, this is most likely due to diabetic neuropathy, although it could also be due to lumbar stenosis, and could be contributed to by his lower extremity edema, putting pressure on local nerves. Unfortunately, there is no way for me to determine the cause at this time, however, this is a chronic issue, not an emergency. With respect to the patient's complaint of dyspnea on exertion, I feel this is most likely due to congestive heart failure, although it could also be contributed to by pulmonary hypertension, as the patient has known obstructive sleep apnea, that is untreated. I don't see any evidence for pneumonia, and I feel that a pulmonary embolus is highly unlikely, as the patient's INR is therapeutic at 2.28. With respect to the patient's anemia, his H/H today is 7.6/25.9. Current guidelines recommend a target hemoglobin of 7 to 8 g/dl, as this level is associated with equivalent or better outcomes than higher hemoglobin levels, particularly in patient's with underlying cardiovascular disease. In this patient's case, there may be some advantage to keeping his hemoglobin somewhat lower, because a lower hemoglobin means that the blood is physically less viscous, which is easier for his heart to pump, bearing in mind that the patient has CHF. Higher hemoglobin levels translate to more viscous blood, which is more difficult for the heart to pump. Nevertheless, I discussed the option of transfusing the patient tonight, and the collective decision is that we will not, however, the patient's daughter will discuss this with Dr. Luo. Departure - Departure Time of Disposition: 21:14 Disposition: Home, Self-Care 01 Condition: Fair Clinical Impression: Dyspnea on exertion, Bilateral lower extremity edema, Paresthesia of both feet , Bilateral claudication of lower limb, Chronic renal insufficiency CHF (congestive heart failure) Qualifiers: Qualified Code(s): I50.32 - Chronic diastolic (congestive) heart failure Anemia Qualifiers: Anemia type: unspecified type Qualified Code(s): D64.9 - Anemia, unspecified - Discharge Information *PRESCRIPTION DRUG MONITORING PROGRAM REVIEWED*: Not Applicable *COPY OF PRESCRIPTION DRUG MONITORING REPORT IN PATIENT RICHELLE: Not Applicable Instructions: Shortness of Breath, Adult, [id number] Referrals: Ganesh Luo MD [Primary Care Provider] - Forms: ED Department Discharge Additional Instructions: You were seen in the emergency room for shortness of breath with exertion for the past 2-3 months, a burning sensation in both of your legs when you walk, for the past 2-3 weeks, swelling/edema of both of her legs, and numbness/ tingling to both of your feet. Workup in the ER included blood work, a chest x-ray, and an ECG. An ankle- brachial index (PEDRO) was also attempted. With respect to your shortness of breath with exertion, it is most likely due to congestive heart failure, however, it may also be contributed to by pulmonary hypertension, as you have obstructive sleep apnea, but do not wear CPAP or BiPAP. You do not have pneumonia, and a blood clot in your lungs is highly unlikely, because your Coumadin is therapeutic with an INR of 2.28. At this time, we are not recommending any change in her medication. With respect to the burning sensation in both of your legs when you walk, this is most likely due to a peripheral vascular disease = narrowing of the arteries going to your legs, due to atherosclerosis. That being said, both of your feet are warm, and the PEDRO that we were able to measure was normal at 1.18. Emergency surgery is not indicated. Please follow-up with your vascular surgeon at [facility] at your previously scheduled appointment 01/29/2019. With respect to the swelling/edema of your lower extremities, this is most likely due to venous insufficiency, although it could also be due to right heart failure. We are recommending that you wear compression stockings. Have them put on each morning, and taken off before you go to bed at night. In addition, try to elevate both of your lower extremities as much as possible when you are not walking around. With respect to the numbness felt in both of your feet, this is most likely due to diabetic neuropathy = nerve damage due to diabetes, although it could also be related to your nerve impingement from your lower back, or even nerve impingement from your lower extremity edema. Please follow-up with Dr. Luo in this regard. With respect to your anemia, your hemoglobin today was found to be 7.6. It was 9.3 on 10/22/2018. It is possible that your hemoglobin has dropped because of your recent nosebleeds, or because of some other bleeding, or because your bone marrow is not making enough blood. The option of a blood transfusion was discussed, but decided against, however, we recommend that you follow-up with Dr. Luo in this regard, as well. He may want you to have an outpatient blood transfusion. If any other problems, please do not hesitate to return to the ER.
--- NOTE | 2019-01-04 08:33 | CR ---
Chest: Portable view of the chest was obtained. Comparison: Prior chest x-ray of 11/15/17. Heart is enlarged. Pulmonary vessels show chronic congestion. Sternotomy is noted. Pacemaker is present. Bony structures are grossly intact. Impression: 1. Stable cardiomegaly and chronic pulmonary vascular congestion. No change from previous chest x-ray. Diagnostic code #2
== END 2019-01-03 21:44 | disposition home or self-care (01) ==
LOC: JD.ED 17:30
DX: I13.0 Hypertensive heart and chronic kidney disease with heart failure and stage 1 through stage 4 chronic kidney disease, or unspecified chronic kidney disease (principal); E11.22 Type 2 diabetes mellitus with diabetic chronic kidney disease; N18.9 Chronic kidney disease, unspecified; I50.32 Chronic diastolic (congestive) heart failure; D63.1 Anemia in chronic kidney disease; I73.9 Peripheral vascular disease, unspecified; I25.2 Old myocardial infarction; I25.10 Atherosclerotic heart disease of native coronary artery without angina pectoris; Z87.891 Personal history of nicotine dependence; Z85.828 Personal history of other malignant neoplasm of skin; Z79.899 Other long term (current) drug therapy; Z79.4 Long term (current) use of insulin; Z91.040 Latex allergy status; Z91.09 Other allergy status, other than to drugs and biological substances; Z88.8 Allergy status to other drugs, medicaments and biological substances
CPT/HCPCS: 36415; 71045; 80053; 82553; 83735; 83880; 84484; 85007; 85027; 85610; 86140; 93005; 96374; 99284; J1940

== ENCOUNTER 2019-02-05 10:06 | Emergency (ER) | payer MEDICARE, OTHER ==
[2019-02-05 10:17] VITALS: BP 136/99
[2019-02-05] MEDS ORDERED: Sodium Chloride 0.9% 10 ML Syringe FLUSH PRN ×2 (10:28→11:07)
--- NOTE | 2019-02-05 11:02 | CT ---
Head CT Technique: Multiple axial sections through the brain were obtained. Intravenous contrast was not utilized. Comparison: Previous head CT study of 02/03/14. Findings: Ventricles along with basal cisterns and sulci over the convexities are moderately to markedly prominent. Old infarct is noted within the left occipital and parietal region. Mild areas of diminished density are noted within the periventricular white matter compatible with small vessel ischemic demyelination change. No other abnormal parenchymal densities are seen. No evidence of intracranial hemorrhage. No midline shift or mass effect is seen. Atherosclerotic calcification is seen within the carotid siphon. Bone window settings were reviewed which show no acute calvarial abnormality. Visualized sinuses are clear. Impression: 1. Diffuse senescent change as described above. 2. Minimal soft tissue swelling within the posterior left frontal scalp. 3. No acute intracranial abnormality is identified. No acute skull fracture is seen. Diagnostic code #2
[2019-02-05] MEDS ORDERED: Iopamidol 755 Mg/ML 200 ML Bottle IV ONE (11:07)
--- NOTE | 2019-02-05 11:44 | CT ---
CT chest Technique: Multiple axial sections were obtained from above the lung apices inferiorly through the lung bases. Intravenous contrast was utilized. Comparison: Prior chest x-ray of 01/03/19. Findings: Artifact noted from pacemaker. Prior sternotomy noted. Extensive coronary artery calcification is seen. Mediastinum and hilar region show no adenopathy. No pericardial effusion is seen. Heart is enlarged. Small amount of ascites is seen around the upper liver. Moderately large right sided pleural effusion is seen. Minimal left sided pleural effusion is seen. Mild atelectasis on a compressive basis seen next to the right pleural effusion. No acute parenchymal densities seen within either lung. Bone window settings were reviewed which show scattered disc space narrowing and osteophytes within the thoracic and cervical spine. Impression: 1. Moderately large right sided pleural effusion with minimal left sided pleural effusion. 2. Small amount of ascites around the liver. 3. Other incidental findings as noted above. Diagnostic code #3
--- NOTE | 2019-02-05 11:54 | EDM.PDOC ---
ED HPI GENERAL MEDICAL PROBLEM - General Chief Complaint: Head Injury Stated Complaint: [facility] Time Seen by Provider: 02/05/19 10:19 Source of Information: Reports: Patient, RN Notes Reviewed History Limitations: Reports: No Limitations - History of Present Illness INITIAL COMMENTS - FREE TEXT/NARRATIVE: Patient is an 83-year-old male who presents via [facility] to the ED for a head injury. The patient states that he lives at [facility], and was walking with the body, and he states that he was striking his feet, and he lost balance and hit his left side of his head on the corner of a wall. Patient notes he is on blood thinners for a pacemaker and multiple stents that he has had placed in the past. He denies pain anywhere, he is not having any headaches, blurred vision/double vision, head pain, neck pain or otherwise. The patient states he feels mildly dizzy however. He denies any dizziness prior to the accident. The patient notes that he is a patient of Dr. Luo'parvez, and he was fasting for a chest CT that was to be done at [place] this afternoon with follow-up appointment with Dr. Luo for some abnormality in his chest. The patient further notes that he has been on and off Lasix at times, for fluid on his legs and in his lungs. He states that he recently just took 40 mg of [address] Dr. Luo has had him on 80 mg of Lasix in the past. - Related Data Allergies Allergy/AdvReac Type Severity Reaction Status Date / Time latex Allergy Unknown Cannot Verified 02/05/19 10:10 Remember adhesive Allergy Hives Verified 02/05/19 10:10 celecoxib Allergy Cannot Verified 02/05/19 10:10 Remember clopidogrel Allergy Cannot Verified 02/05/19 10:10 Remember ramipril [From Altace] Allergy Itching Verified 02/05/19 10:10 rofecoxib [From Vioxx] Allergy Edema Verified 02/05/19 10:10 sertraline Allergy Cannot Verified 02/05/19 10:10 Remember simvastatin Allergy Edema Verified 02/05/19 10:10 valsartan Allergy Cannot Verified 02/05/19 10:10 Remember chlordiazepoxide AdvReac Confusion Verified 02/05/19 10:10 clidinium [Clidinium] AdvReac Confusion Verified 02/05/19 10:10 pregabalin [From Lyrica] AdvReac Confusion Verified 02/05/19 10:10 Home Meds: Home Meds Chromium Picolinate 200 mcg PO DAILY 06/27/15 [History] Digoxin [Lanoxin] 125 mcg PO DAILY 06/27/15 [History] Furosemide [Lasix] 40 mg PO DAILY 06/27/15 [History] Glimepiride [Amaryl] 4 mg PO DAILY 06/27/15 [History] Insulin Glarg,Human.Rec.Analog [LantUS Solostar] 80 units SUBCUT DAILY 06/27/15 [History] Metoprolol Succinate [Toprol XL] 100 mg PO BID 06/27/15 [History] Omeprazole 40 mg PO QAM 06/27/15 [History] dilTIAZem HCl [Diltiazem 24Hr ER (LA)] 240 mg PO DAILY 06/27/15 [History] Cholecalciferol (Vitamin D3) [Vitamin D3] 1,000 unit PO DAILY 02/25/16 [History] Flaxseed Oil [Flaxseed] 1,000 mg PO DAILY 09/08/16 [History] Nitroglycerin [Nitrostat] 0.4 mg SL Q5M PRN 09/08/16 [History] Warfarin [Coumadin] 5 mg PO SUTUTHSA 09/08/16 [History] Cyanocobalamin (Vitamin B-12) [Vitamin B-12] 500 mcg PO DAILY 06/12/17 [History] Isosorbide Mononitrate [Imdur] 60 mg PO DAILY 06/12/17 [History] Terazosin HCl [Terazosin] 5 mg PO QAM 06/12/17 [History] Valsartan 160 mg PO DAILY 06/12/17 [History] Warfarin [Coumadin] 2.5 mg PO MOWEFR 06/12/17 [History] atorvaSTATin [Lipitor] 40 mg PO DAILY 06/12/17 [History] Multivit-Min/FA/Lutein/Zeaxant [Macular Vitamin Tablet] 1 tab PO DAILY 11/15/17 [History] Antiiva 2 tab PO DAILY 01/12/18 [History] Clopidogrel [Plavix] 75 mg PO DAILY 01/12/18 [History] Omeprazole 20 mg PO QPM 01/12/18 [History] Terazosin HCl [Terazosin] 10 mg PO BEDTIME 01/12/18 [History] Bacitracin/Polymyxin B Sulfate [Polysporin Ointment] 1 each TP DAILY #1 tube [Rx] Past Medical History HEENT History: Reports: Cataract Other HEENT History: has glasses, wears dentures Cardiovascular History: Reports: Afib, Angina, CAD, Heart Murmur, High Cholesterol, Hypertension, RI, Pacemaker, Other (See Below) Other Cardiovascular History: pad,chf Respiratory History: Reports: Sleep Apnea, SOB Other Respiratory History: does not use CPAP, has wheezing and history of pneumonia Gastrointestinal History: Reports: Colon Polyp, Hemorrhoids, PUD Other Gastrointestinal History: melanosis of coli, diverticulosis, small bowel obstruction, increased liver enzymes, chavis's esophagus Genitourinary History: Reports: BPH Other Genitourinary History: 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 Musculoskeletal History: Reports: Other (See Below) Other Musculoskeletal History: Right elbow olecranon bursitis, rotator cuff tear Neurological History: Reports: CVA, Vertigo Psychiatric History: Reports: None Endocrine/Metabolic History: Reports: Diabetes, Type II Hematologic History: Reports: None Immunologic History: Reports: None Oncologic (Cancer) History: Reports: Basal Cell Carcinoma Dermatologic History: Reports: Melanoma, Other (See Below) Other Dermatologic History: malignant skin neoplasm, basal cell carcinoma, actinic keratosis, junctional nevus, seborrheic keratosis, hemangioma - Past Surgical History HEENT Surgical History: Reports: Adenoidectomy, Cataract Surgery, Tonsillectomy Other HEENT Surgeries/Procedures: BILATERAL CATARACTS REMOVED, Cardiovascular Surgical History: Reports: AICD, Carotid Stents, Coronary Artery Bypass, Coronary Artery Stent, Pacer Other Cardiovascular Surgeries/Procedures: coronary stent placemement of RCA 02/1995. CABG 1995 (triple vessel). PTCA and stenting of LAD 10/15/03. PTCA with stenting (bare metal) to LAD 10/23/03. PTCA with drug eluding stent to LAD 12/01/03. cardiac catheterization (no intervention) 12/26/03. cardiac catheterization (no intervention) 09/18/05. cardiac catheterization (no intervention) 03/04/07. PTCA with drug eluding stent to LAD 06/16/10. PTCA with stenting (bare metal) to vein graft to R coronary artery 01/31/13. Coronary angioplasty proximal LAD in-stent restenosis with m synergy 09/11/16 GI Surgical History: Reports: Appendectomy, Colonoscopy, EGD Neurological Surgical History: Reports: Other (See Below) Other Neurological Surgeries/Procedures: PT REPORTS 2X BACK SURGERIES ONCE TO THORACIC, ONCE TO LUMBAR Musculoskeletal Surgical History: Reports: Shoulder Surgery Other Musculoskeletal Surgeries/Procedures:: bilateral rotator cuff tears and repairs (different times) Other Oncologic Surgeries/Procedures: MELANOMA OF BACK - EXCISED Dermatological Surgical History: Reports: Skin Biopsy Social & Family History - Family History Family Medical History: Noncontributory - Tobacco Use Smoking Status *Q: Never Smoker - Caffeine Use Caffeine Use: Reports: Coffee - Recreational Drug Use Recreational Drug Use: No - Living Situation & Occupation Living situation: Reports: (His 83-year-old is at home and is developing quite significant dementia at this time. He is therefore doing most of care and cooking.), with Spouse Occupation: Retired ED ROS GENERAL - Review of Systems Review Of Systems: See Below Constitutional: Reports: No Symptoms HEENT: Reports: No Symptoms Respiratory: Reports: Wheezing (chronic, not worsened from normal) Cardiovascular: Reports: No Symptoms Endocrine: Reports: No Symptoms GI/Abdominal: Reports: No Symptoms : Reports: No Symptoms Musculoskeletal: Reports: No Symptoms Skin: Reports: Other (Lump noted to left lateral forehead just above the eyebrow , slight bruising noted as well) Neurological: Denies: Confusion, Dizziness, Headache, Trouble Speaking Psychiatric: Reports: No Symptoms Hematologic/Lymphatic: Reports: No Symptoms ED EXAM, HEAD INJURY - Physical Exam Exam: See Below Exam Limited By: No Limitations General Appearance: Alert, WD/WN, No Apparent Distress Head: Atraumatic, Normocephalic, Other (Small lump noted to left lateral forehead, just over his left eyebrow. This is where the patient states he hit his head there is some mild tenderness to the area however he says it is not bothersome.). No: Canseco's Sign, Facial Tenderness, Raccoon Eyes Nexus Criteria: No: Posterior, Midline Cervical Tenderness, Evidence of Intoxication, Altered Level of Consciousness, Focal Neurological Deficit, Painful Distraction Injuries Eyes: Bilateral Eye: EOMI, Normal Inspection, PERRL Ears: Normal External Exam, Normal Canal, Hearing Grossly Normal, Normal TMs Nose: Normal Inspection Throat/Mouth: Normal Inspection, Normal Voice, No Airway Compromise Neck: Non-Tender, Full Range of Motion, Normal Alignment, Normal Inspection Respiratory: No Respiratory Distress, No Accessory Muscle Use, Chest Non-Tender , Crackles, Wheezing (slight expiratory wheezine) Cardiovascular: Normal Peripheral Pulses, Regular Rate, Rhythm, No Murmur GI/Abdominal Exam: Normal Bowel Sounds, Soft, Non-Tender, No Distention, No Mass Extremities: Normal Inspection, Normal Capillary Refill, Pedal Edema (2+ pitting bilaterally) Neurologic: No Motor/Sensory Deficits, Alert, Normal Mood/Affect, Oriented x 3 Skin: Normal Color, Warm/Dry - Annie Coma Score Best Eye Response (Annie): (4) Open Spontaneously Best Verbal Response (Erwin): (5) Oriented Best Motor Response (Erwin): (6) Obeys Commands Erwin Total: 15 Course - Vital Signs Last Recorded V/S: Last Vital Signs Temp 98.5 F 02/05/19 10:13 Pulse 74 02/05/19 10:13 Resp 20 02/05/19 10:13 BP 136/99 H 02/05/19 10:13 Pulse Ox 89 L 02/05/19 10:13 - Orders/Labs/Meds Orders: Active Orders 24 hr Category Date Time Status Peripheral IV Care [RC] . DIRECTED Care 02/05/19 10:28 Active Peripheral IV Insertion Adult [OM.PC] Routine Oth 02/05/19 10:28 Ordered Labs: Laboratory Tests 02/05/19 02/05/19 02/05/19 Range/Units 10:25 10:25 10:25 WBC 5.27 (4.23-9.07) K/mm3 RBC 3.10 L (4.63-6.08) M/mm3 Hgb 8.4 L (13.7-17.5) gm/L Hct 29.1 L (40.1-51.0) % MCV 93.9 H (79.0-92.2) fl MCH 27.1 (25.7-32.2) pg MCHC 28.9 L (32.2-35.5) g/dl RDW Std Deviation 73.4 H (35.1-43.9) fL Plt Count 183 (163-337) K/mm3 MPV 9.5 (9.4-12.3) fl Neutrophils % (Manual) 67 H (40-60) % Band Neutrophils % 0 (0-10) % Lymphocytes % (Manual) 22 (20-40) % Atypical Lymphs % 0 % Monocytes % (Manual) 8 (2-10) % Eosinophils % (Manual) 2 (0.8-7.0) % Basophils % (Manual) 1 (0.2-1.2) Platelet Estimate Adequate Hypochromasia 2+ moderate Anisocytosis 3+ marked Microcytosis 1+ slight RBC Morph Comment Abnormal Sodium 141 (136-145) mEq/L Potassium 4.1 (3.5-5.1) mEq/L Chloride 107 (98-107) mEq/L Carbon Dioxide 26 (21-32) mEq/L Anion Gap 12.1 (5-15) BUN 25 H (7-18) mg/dL Creatinine 1.3 (0.7-1.3) mg/dL Est Cr Clr Drug Dosing TNP Estimated GFR (MDRD) 52 (>60) mL/min BUN/Creatinine Ratio 19.2 H (14-18) Glucose 179 H (83-115) mg/dL Calcium 8.9 (8.5-10.1) mg/dL Total Bilirubin 0.7 (0.2-1.0) mg/dL AST 38 H (15-37) U/L ALT 30 (16-63) U/L Alkaline Phosphatase 90 (46-116) U/L NT-Pro-B Natriuret Pep 3181 H (0-450) pg/mL Total Protein 6.8 (6.4-8.2) g/dl Albumin 3.3 L (3.4-5.0) g/dl Globulin 3.5 gm/dL Albumin/Globulin Ratio 0.9 L (1-2) Meds: Medications Discontinued Medications Generic Name Dose Route Start Last Admin Trade Name Freq PRN Reason Stop Dose Admin Furosemide 40 mg 02/05/19 12:13 02/05/19 13:19 Lasix IVPUSH 02/05/19 12:14 Not Given NOW ONE Iopamidol 50 ml 02/05/19 11:07 02/05/19 11:12 Isovue-370 (76%) IV 02/05/19 11:08 75 ml ONETIME ONE Administration Sodium Chloride 10 ml 02/05/19 10:28 02/05/19 10:59 Saline Flush FLUSH 10 ml ASDIRECTED PRN Administration Keep Vein Open Sodium Chloride 10 ml 02/05/19 11:07 02/05/19 11:12 Saline Flush FLUSH 10 ml ONETIME PRN Administration IV FLUSH - Radiology Interpretation Free Text/Narrative:: Head CT Technique: Multiple axial sections through the brain were obtained. Intravenous contrast was not utilized. Comparison: Previous head CT study of 02/03/14. Findings: Ventricles along with basal cisterns and sulci over the convexities are moderately to markedly prominent. Old infarct is noted within the left occipital and parietal region. Mild areas of diminished density are noted within the periventricular white matter compatible with small vessel ischemic demyelination change. No other abnormal parenchymal densities are seen. No evidence of intracranial hemorrhage. No midline shift or mass effect is seen. Atherosclerotic calcification is seen within the carotid siphon. Bone window settings were reviewed which show no acute calvarial abnormality. Visualized sinuses are clear. Impression: 1. Diffuse senescent change as described above. 2. Minimal soft tissue swelling within the posterior left frontal scalp. 3. No acute intracranial abnormality is identified. No acute skull fracture is seen. CT chest Technique: Multiple axial sections were obtained from above the lung apices inferiorly through the lung bases. Intravenous contrast was utilized. Comparison: Prior chest x-ray of 01/03/19. Findings: Artifact noted from pacemaker. Prior sternotomy noted. Extensive coronary artery calcification is seen. Mediastinum and hilar region show no adenopathy. No pericardial effusion is seen. Heart is enlarged. Small amount of ascites is seen around the upper liver. Moderately large right sided pleural effusion is seen. Minimal left sided pleural effusion is seen. Mild atelectasis on a compressive basis seen next to the right pleural effusion. No acute parenchymal densities seen within either lung. Bone window settings were reviewed which shows scattered disc space narrowing and osteophytes within the thoracic and cervical spine. Impression: 1. Moderately large right sided pleural effusion with minimal left sided pleural effusion. 2. Small amount of ascites around the liver. 3. Other incidental findings as noted above. - Re-Assessments/Exams Free Text/Narrative Re-Assessment/Exam: 02/05/19 10:30 Patient presents to the ED for the evaluation of a head injury. I did order a head CT, a CBC, CMP, BNP for further evaluation of his symptoms at this time. I have been in contact with Dr. Luo, and he states he had a chest CT ordered with contrast for evaluation of a elevated right hemidiaphragm. I will have the results of the chest CT sent to Dr. Luo's office. 02/05/19 12:01 Patient's labs have returned, his hemoglobin is mildly low at 8.4 today, his potassium is within normal limits, however his BNP is 3100 which would suggest he is in mild heart failure as well. His head CT did not demonstrate any sign of acute abnormality, however the radiologist did notice an old infarct. The patient's chest CT demonstrates a moderately large right-sided pleural effusion with right sided compression atelectasis due to the fluid on his lung, and a small amount of ascites around the liver. 02/05/19 12:30 Dr. Luo was called again and made aware of the patient's labs and chest CT, he states that the patient's hemoglobin is normally around that level, And he suggested that the patient incease his Lasix due to the BNP. I did order 40 mg IV Lasix to be given for the increased BNP. However in talking with the patient he is not wanting to increase his Lasix at home he states he will take only the 40mg at home. I did advise him that he needs to follow-up with Dr. Luo for results of the CT and further management. The patient will call Dr. Luo's nurse and make that appointment. Dr. Luo also thinks that the effusion should be drained in [place], with interventional radiology, however this might be done outpatient at his next appointment if the patient should desire to do so. Departure - Departure Time of Disposition: 12:32 Disposition: Home, Self-Care 01 Condition: Fair Clinical Impression: Head injury Qualifiers: Encounter type: initial encounter Qualified Code(s): S09.90XA - Unspecified injury of head, initial encounter - Discharge Information *PRESCRIPTION DRUG MONITORING PROGRAM REVIEWED*: No *COPY OF PRESCRIPTION DRUG MONITORING REPORT IN PATIENT RICHELLE: No Instructions: Head Injury, Adult, [id number] Referrals: Ganesh Luo MD [Primary Care Provider] - Forms: ED Department Discharge Additional Instructions: You have been evaluated in the ED today for your head injury. Your head CT did not demonstrate any sign of acute bleed in your head at this time. Your chest CT did demonstrate a moderately large amount of fluid on your right lung, your primary care provider Dr. Luo has been provided with the results, and he suggests that you make a follow up appointment with him sooner than the one you have scheduled previously, please call his nurse to make this appointment. Dr. Luo believes that the pleural effusion might need to be drained via interventional radiology in [place]. You may try to correlate this with your next appointment at [facility] in [place]. Please return to the ED if your symptoms change or worsen. - My Orders Last 24 Hours: My Active Orders 02/05/19 10:28 Peripheral IV Care [RC] . DIRECTED Peripheral IV Insertion Adult [OM.PC] Routine - Assessment/Plan Last 24 Hours: My Active Orders 02/05/19 10:28 Peripheral IV Care [RC] . DIRECTED Peripheral IV Insertion Adult [OM.PC] Routine
[2019-02-05] MEDS ORDERED: Furosemide 40 MG/4 ML VIAL IVPUSH ONE (12:13)
== END 2019-02-05 13:35 | disposition home or self-care (01) ==
LOC: SUPCPDRO 10:06 → JD.ED 10:06
DX: S09.90XA Unspecified injury of head, initial encounter (principal); I12.9 Hypertensive chronic kidney disease with stage 1 through stage 4 chronic kidney disease, or unspecified chronic kidney disease; N18.9 Chronic kidney disease, unspecified; I48.91 Unspecified atrial fibrillation; I25.10 Atherosclerotic heart disease of native coronary artery without angina pectoris; E11.22 Type 2 diabetes mellitus with diabetic chronic kidney disease; Z91.040 Latex allergy status; Z91.09 Other allergy status, other than to drugs and biological substances; Z88.8 Allergy status to other drugs, medicaments and biological substances; Z79.4 Long term (current) use of insulin; Z79.01 Long term (current) use of anticoagulants; Z79.899 Other long term (current) drug therapy; Z98.890 Other specified postprocedural states; Z98.41 Cataract extraction status, right eye; Z98.42 Cataract extraction status, left eye; Z95.1 Presence of aortocoronary bypass graft; Z95.5 Presence of coronary angioplasty implant and graft; Z90.49 Acquired absence of other specified parts of digestive tract; W22.8XXA Striking against or struck by other objects, initial encounter
CPT/HCPCS: 36415; 70450; 71260; 80053; 83880; 85007; 85027; 99284; Q9967; 99283

== ENCOUNTER 2020-07-27 19:41 | Inpatient (IN) | payer MEDICARE, OTHER ==
[2020-07-27] MEDS ORDERED: Sodium Chloride 0.9% 10 ML Syringe FLUSH PRN (19:58)
[2020-07-27] MEDS ORDERED: Sodium Chloride 0.9% 1,000 ML IV SCH ×2 (20:00→22:45)
--- NOTE | 2020-07-27 20:27 | EDM.PDOC ---
ED HPI GENERAL MEDICAL PROBLEM - General Chief Complaint: Fever Stated Complaint: [facility] Time Seen by Provider: 07/27/20 19:47 Source of Information: Reports: Patient, EMS History Limitations: Reports: No Limitations - History of Present Illness INITIAL COMMENTS - FREE TEXT/NARRATIVE: The patient presents by [facility] from [facility] for fever, confusion and generalized weakness. He was doing fine this morning when he woke up and at 9am he had his flu shot. By noon today he had a high fever and he was very weak this evening and he could not get out of his chair without assistance. He denies a cough, congestion, runny nose, chest pain or shortness of breath. He has no abdominal pain, nausea, vomiting or diarrhea. He has no dysuria. He was given tylenol at 5pm tonight and his temp is down. Onset: Gradual Duration: Hour(s): Severity: Moderate Improves with: Reports: None Worsens with: Reports: None Associated Symptoms: Reports: Fever/Chills. Denies: Chest Pain, Cough, Headaches, Nausea/Vomiting, Shortness of Breath - Related Data Allergies Allergy/AdvReac Type Severity Reaction Status Date / Time latex Allergy Unknown Cannot Verified 07/27/20 19:52 Remember adhesive Allergy Hives Verified 07/27/20 19:52 celecoxib Allergy Cannot Verified 07/27/20 19:52 Remember clopidogrel Allergy Cannot Verified 07/27/20 19:52 Remember ramipril [From Altace] Allergy Itching Verified 07/27/20 19:52 rofecoxib [From Vioxx] Allergy Edema Verified 07/27/20 19:52 sertraline Allergy Cannot Verified 07/27/20 19:52 Remember simvastatin Allergy Edema Verified 07/27/20 19:52 valsartan Allergy Cannot Verified 07/27/20 19:52 Remember chlordiazepoxide AdvReac Confusion Verified 07/27/20 19:52 clidinium [Clidinium] AdvReac Confusion Verified 07/27/20 19:52 pregabalin [From Lyrica] AdvReac Confusion Verified 07/27/20 19:52 Home Meds: Home Meds Digoxin [Lanoxin] 125 mcg PO DAILY 06/27/15 [History] Furosemide [Lasix] 80 mg PO BID 06/27/15 [History] Glimepiride [Amaryl] 5 mg PO BID 06/27/15 [History] Insulin Glarg,Human.Rec.Analog [LantUS Solostar] 50 units SUBCUT DAILY 06/27/15 [History] Metoprolol Succinate [Toprol XL] 100 mg PO BID 06/27/15 [History] dilTIAZem HCL [Diltiazem 24Hr ER (LA)] 240 mg PO DAILY 06/27/15 [History] Nitroglycerin [Nitrostat] 0.4 mg SL Q5M PRN 09/08/16 [History] Cyanocobalamin (Vitamin B-12) [Vitamin B-12] 2,500 mcg PO DAILY 06/12/17 [History] Isosorbide Mononitrate [Imdur] 60 mg PO DAILY 06/12/17 [History] atorvaSTATin [Lipitor] 40 mg PO DAILY 06/12/17 [History] Antiiva 1 tab PO DAILY 01/12/18 [History] Omeprazole 20 mg PO DAILY 01/12/18 [History] Acetaminophen [Tylenol] 650 mg PO Q4H PRN 07/27/20 [History] Aloe Vera/Sodium Chloride [Sanford Saline Nasal Gel] 1 applic TOP TID PRN 07/27/20 [History] Benzocaine/Menthol [Cepacol Sore Throat Lozenge] 1 tab PO Q1H PRN 07/27/20 [History] Diabetic Nerve Rejuvenator 1 tab PO BID 07/27/20 [History] Ferrous Sulfate 324 mg PO DAILY 07/27/20 [History] Hydrocodone/Acetaminophen [Hydrocodone-Acetamin 5-325 mg] 1 tab PO Q6H PRN 07/27/20 [History] Levothyroxine [Synthroid] 50 mcg PO DAILY 07/27/20 [History] Loperamide [Imodium] 2 mg PO ASDIRECTED PRN 07/27/20 [History] Potassium Chloride 20 meq PO DAILY 07/27/20 [History] Sennosides [Senna] 8.6 mg PO DAILY PRN 07/27/20 [History] Terazosin [Hytrin] 5 mg PO DAILY 07/27/20 [History] Terazosin [Hytrin] 10 mg PO BEDTIME 07/27/20 [History] Warfarin [Coumadin] 4 mg PO 1200 07/27/20 [History] guaiFENesin/Dextromethorphan [Tussin Dm Liquid] 10 ml PO Q4H PRN 07/27/20 [History] metOLazone [Metolazone] 2.5 mg PO MO 07/27/20 [History] Past Medical History HEENT History: Reports: Cataract Other HEENT History: has glasses, wears dentures Cardiovascular History: Reports: Afib, Angina, CAD, Heart Murmur, High Cholesterol, Hypertension, NE, Pacemaker, Other (See Below) Other Cardiovascular History: pad,chf Respiratory History: Reports: Sleep Apnea, SOB Other Respiratory History: does not use CPAP, has wheezing and history of pneumonia Gastrointestinal History: Reports: Colon Polyp, Hemorrhoids, PUD Other Gastrointestinal History: melanosis of coli, diverticulosis, small bowel obstruction, increased liver enzymes, chavis's esophagus Genitourinary History: Reports: BPH Other Genitourinary History: CHRONIC RENAL INSUFFICIENCY [employer]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 Musculoskeletal History: Reports: Other (See Below) Other Musculoskeletal History: Right elbow olecranon bursitis, rotator cuff tear Neurological History: Reports: CVA, Vertigo Psychiatric History: Reports: None Endocrine/Metabolic History: Reports: Diabetes, Type II Hematologic History: Reports: None Immunologic History: Reports: None Oncologic (Cancer) History: Reports: Basal Cell Carcinoma Dermatologic History: Reports: Melanoma, Other (See Below) Other Dermatologic History: malignant skin neoplasm, basal cell carcinoma, actinic keratosis, junctional nevus, seborrheic keratosis, hemangioma - Past Surgical History HEENT Surgical History: Reports: Adenoidectomy, Cataract Surgery, Tonsillectomy Other HEENT Surgeries/Procedures: BILATERAL CATARACTS REMOVED, Cardiovascular Surgical History: Reports: AICD, Carotid Stents, Coronary Artery Bypass, Coronary Artery Stent, Pacer Other Cardiovascular Surgeries/Procedures: coronary stent placemement of RCA 09/11/1995. CABG 1995 (triple vessel). PTCA and stenting of LAD 10/15/03. PTCA with stenting (bare metal) to LAD 10/23/03. PTCA with drug eluding stent to LAD 12/01/03. cardiac catheterization (no intervention) 12/26/03. cardiac catheterization (no intervention) 09/18/05. cardiac catheterization (no intervention) 03/04/07. PTCA with drug eluding stent to LAD 06/16/10. PTCA with stenting (bare metal) to vein graft to R coronary artery 01/31/13. Coronary angioplasty proximal LAD in-stent restenosis with m synergy 09/11/16 GI Surgical History: Reports: Appendectomy, Colonoscopy, EGD Neurological Surgical History: Reports: Other (See Below) Other Neurological Surgeries/Procedures: PT REPORTS 2X BACK SURGERIES ONCE TO THORACIC, ONCE TO LUMBAR Musculoskeletal Surgical History: Reports: Shoulder Surgery Other Musculoskeletal Surgeries/Procedures:: bilateral rotator cuff tears and repairs (different times) Other Oncologic Surgeries/Procedures: MELANOMA OF BACK - EXCISED Dermatological Surgical History: Reports: Skin Biopsy Social & Family History - Family History Family Medical History: Noncontributory - Tobacco Use Tobacco Use Status *Q: Unknown Ever Used Tobacco - Caffeine Use Caffeine Use: Reports: Coffee - Recreational Drug Use Recreational Drug Use: No - Living Situation & Occupation Living situation: Reports: (His 83-year-old is at home and is developing quite significant dementia at this time. He is therefore doing most of care and cooking.), with Spouse Occupation: Retired ED ROS GENERAL - Review of Systems Review Of Systems: See Below Constitutional: Reports: Fever, Chills, Malaise, Weakness, Fatigue HEENT: Reports: No Symptoms Respiratory: Reports: No Symptoms Cardiovascular: Reports: No Symptoms Endocrine: Reports: Fatigue GI/Abdominal: Reports: No Symptoms : Reports: No Symptoms Musculoskeletal: Reports: No Symptoms ED EXAM, SEPSIS - Physical Exam Exam: See Below Exam Limited By: No Limitations General Appearance: Alert, No Apparent Distress Ears: Normal External Exam Nose: Normal Inspection Head: Atraumatic, Normocephalic Neck: Normal Inspection Respiratory/Chest: No Respiratory Distress, Lungs Clear, Normal Breath Sounds Cardiovascular: Regular Rate, Rhythm, No Edema, No Murmur GI/Abdominal Exam: Soft, Non-Tender, No Organomegaly, No Mass Back: Normal Inspection Extremities: Normal Inspection Course - Vital Signs Last Recorded V/S: Last Vital Signs Temp 97.9 F 07/27/20 19:47 Pulse 75 07/27/20 19:47 Resp 16 07/27/20 19:47 BP 108/47 L 07/27/20 19:47 Pulse Ox 96 07/27/20 21:11 - Orders/Labs/Meds Orders: Active Orders 24 hr Category Date Time Status Cardiac Monitoring [RC] . DIRECTED Care 10/20/20 19:58 Active Oxygen Therapy [RC] PRN Care 07/27/20 19:58 Active Peripheral IV Care [RC] . DIRECTED Care 07/27/20 19:59 Active Chest 1V Frontal [CR] Stat Exams 07/27/20 19:59 Taken CULTURE BLOOD [BC] Stat Lab 07/27/20 20:17 Received CULTURE BLOOD [BC] Stat Lab 07/27/20 20:25 Received CULTURE URINE [RM] Stat Lab 07/27/20 22:05 Received Sodium Chloride 0.9% [Normal Saline] 1,000 ml Med 07/27/20 20:00 Active IV .BOLUS Sodium Chloride 0.9% [Normal Saline] 1,000 ml Med 07/27/20 22:45 Active IV ASDIRECTED Sodium Chloride 0.9% [Saline Flush] Med 07/27/20 19:58 Active 10 ml FLUSH ASDIRECTED PRN cefTRIAXone [Rocephin] 2 gm Med 07/27/20 22:45 Active Sodium Chloride 0.9% [Normal Saline] 100 ml IV Q24H Blood Culture x2 Reflex Set [OM.PC] Stat Oth 07/27/20 19:59 Ordered Peripheral IV Insertion Adult [OM.PC] Stat Oth 07/27/20 19:58 Ordered Medication Orders Sodium Chloride (Normal Saline) 1,000 mls @ 1,000 mls/hr IV .BOLUS REAL Last Admin: 07/27/20 20:17 Dose: 1,000 mls/hr Documented by: DEBORA Ceftriaxone Sodium 2 gm/ (Sodium Chloride) 100 mls @ 200 mls/hr IV Q24H REAL Last Admin: 07/27/20 23:03 Dose: 200 mls/hr Documented by: DEBORA Sodium Chloride (Normal Saline) 1,000 mls @ 100 mls/hr IV ASDIRECTED REAL Last Admin: 07/27/20 23:03 Dose: 100 mls/hr Documented by: DEBORA Sodium Chloride (Saline Flush) 10 ml FLUSH ASDIRECTED PRN PRN Reason: Keep Vein Open Last Admin: 07/27/20 20:17 Dose: 10 ml Documented by: DEBORA Labs: Laboratory Tests 07/27/20 07/27/20 07/27/20 Range/Units 20:17 20:17 20:25 WBC 9.11 H (4.23-9.07) K/mm3 RBC 3.03 L (4.63-6.08) M/mm3 Hgb 9.0 L (13.7-17.5) gm/dl Hct 29.4 L (40.1-51.0) % MCV 97.0 H D (79.0-92.2) fl MCH 29.7 (25.7-32.2) pg MCHC 30.6 L (32.2-35.5) g/dl RDW Std Deviation 56.6 H (35.1-43.9) fL Plt Count 219 (163-337) K/mm3 MPV 9.1 L (9.4-12.3) fl Neut % (Auto) 93.5 H (34.0-67.9) % Lymph % (Auto) 1.2 L (21.8-53.1) % O'Brien % (Auto) 4.9 L (5.3-12.2) % Eos % (Auto) 0.2 L (0.8-7.0) Baso % (Auto) 0.1 (0.1-1.2) % Neut # (Auto) 8.51 H (1.78-5.38) K/mm3 Lymph # (Auto) 0.11 L (1.32-3.57) K/mm3 O'Brien # (Auto) 0.45 (0.30-0.82) K/mm3 Eos # (Auto) 0.02 L (0.04-0.54) K/mm3 Baso # (Auto) 0.01 (0.01-0.08) K/mm3 Manual Slide Review Abnormal smear D-Dimer, Quantitative 0.49 (0.19-0.50) mg/L Sodium (136-145) mEq/L Potassium (3.5-5.1) mEq/L Chloride (98-107) mEq/L Carbon Dioxide (21-32) mEq/L Anion Gap (5-15) BUN (7-18) mg/dL Creatinine (0.7-1.3) mg/dL Est Cr Clr Drug Dosing mL/min Estimated GFR (MDRD) (>60) mL/min BUN/Creatinine Ratio (14-18) Glucose (83-115) mg/dL Lactic Acid 2.2 H* (0.4-2.0) mmol/L Calcium (8.5-10.1) mg/dL Ferritin (26-388) ng/ml Total Bilirubin (0.2-1.0) mg/dL AST (15-37) U/L ALT (16-63) U/L Alkaline Phosphatase (46-116) U/L Lactate Dehydrogenase (85-227) U/L C-Reactive Protein (<1.0) mg/dL Total Protein (6.4-8.2) g/dl Albumin (3.4-5.0) g/dl Globulin gm/dL Albumin/Globulin Ratio (1-2) Urine Color (Yellow) Urine Appearance (Clear) Urine pH (5.0-8.0) Ur Specific [place] (1.005-1.030) Urine Protein (Negative) Urine Glucose (UA) (Negative) Urine Ketones (Negative) Urine Occult Blood (Negative) Urine Nitrite (Negative) Urine Bilirubin (Negative) Urine Urobilinogen (0.2-1.0) Ur Leukocyte Esterase (Negative) Urine RBC (0-5) /hpf Urine WBC (0-5) /hpf Ur Squamous Epith Cells (0-5) /hpf Urine Bacteria (FEW) /hpf Urine Mucus (FEW) /hpf SARS-CoV-2 RNA (SHILA) (NEGATIVE) 07/27/20 07/27/20 07/27/20 Range/Units 20:25 20:25 20:25 WBC (4.23-9.07) K/mm3 RBC (4.63-6.08) M/mm3 Hgb (13.7-17.5) gm/dl Hct (40.1-51.0) % MCV (79.0-92.2) fl MCH (25.7-32.2) pg MCHC (32.2-35.5) g/dl RDW Std Deviation (35.1-43.9) fL Plt Count (163-337) K/mm3 MPV (9.4-12.3) fl Neut % (Auto) (34.0-67.9) % Lymph % (Auto) (21.8-53.1) % O'Brien % (Auto) (5.3-12.2) % Eos % (Auto) (0.8-7.0) Baso % (Auto) (0.1-1.2) % Neut # (Auto) (1.78-5.38) K/mm3 Lymph # (Auto) (1.32-3.57) K/mm3 O'Brien # (Auto) (0.30-0.82) K/mm3 Eos # (Auto) (0.04-0.54) K/mm3 Baso # (Auto) (0.01-0.08) K/mm3 Manual Slide Review D-Dimer, Quantitative (0.19-0.50) mg/L Sodium 136 (136-145) mEq/L Potassium 3.5 (3.5-5.1) mEq/L Chloride 98 (98-107) mEq/L Carbon Dioxide 28 (21-32) mEq/L Anion Gap 13.5 (5-15) BUN 33 H (7-18) mg/dL Creatinine 1.7 H (0.7-1.3) mg/dL Est Cr Clr Drug Dosing 33.60 mL/min Estimated GFR (MDRD) 38 (>60) mL/min BUN/Creatinine Ratio 19.4 H (14-18) Glucose 163 H (83-115) mg/dL Lactic Acid (0.4-2.0) mmol/L Calcium 8.7 (8.5-10.1) mg/dL Ferritin 48 (26-388) ng/ml Total Bilirubin 0.9 (0.2-1.0) mg/dL AST 41 H (15-37) U/L ALT 31 (16-63) U/L Alkaline Phosphatase 75 (46-116) U/L Lactate Dehydrogenase 189 (85-227) U/L C-Reactive Protein 2.9 H* (<1.0) mg/dL Total Protein 6.5 (6.4-8.2) g/dl Albumin 3.2 L (3.4-5.0) g/dl Globulin 3.3 gm/dL Albumin/Globulin Ratio 1.0 (1-2) Urine Color (Yellow) Urine Appearance (Clear) Urine pH (5.0-8.0) Ur Specific [place] (1.005-1.030) Urine Protein (Negative) Urine Glucose (UA) (Negative) Urine Ketones (Negative) Urine Occult Blood (Negative) Urine Nitrite (Negative) Urine Bilirubin (Negative) Urine Urobilinogen (0.2-1.0) Ur Leukocyte Esterase (Negative) Urine RBC (0-5) /hpf Urine WBC (0-5) /hpf Ur Squamous Epith Cells (0-5) /hpf Urine Bacteria (FEW) /hpf Urine Mucus (FEW) /hpf SARS-CoV-2 RNA (SHILA) Negative (NEGATIVE) 07/27/20 Range/Units 22:00 WBC (4.23-9.07) K/mm3 RBC (4.63-6.08) M/mm3 Hgb (13.7-17.5) gm/dl Hct (40.1-51.0) % MCV (79.0-92.2) fl MCH (25.7-32.2) pg MCHC (32.2-35.5) g/dl RDW Std Deviation (35.1-43.9) fL Plt Count (163-337) K/mm3 MPV (9.4-12.3) fl Neut % (Auto) (34.0-67.9) % Lymph % (Auto) (21.8-53.1) % O'Brien % (Auto) (5.3-12.2) % Eos % (Auto) (0.8-7.0) Baso % (Auto) (0.1-1.2) % Neut # (Auto) (1.78-5.38) K/mm3 Lymph # (Auto) (1.32-3.57) K/mm3 O'Brien # (Auto) (0.30-0.82) K/mm3 Eos # (Auto) (0.04-0.54) K/mm3 Baso # (Auto) (0.01-0.08) K/mm3 Manual Slide Review D-Dimer, Quantitative (0.19-0.50) mg/L Sodium (136-145) mEq/L Potassium (3.5-5.1) mEq/L Chloride (98-107) mEq/L Carbon Dioxide (21-32) mEq/L Anion Gap (5-15) BUN (7-18) mg/dL Creatinine (0.7-1.3) mg/dL Est Cr Clr Drug Dosing mL/min Estimated GFR (MDRD) (>60) mL/min BUN/Creatinine Ratio (14-18) Glucose (83-115) mg/dL Lactic Acid (0.4-2.0) mmol/L Calcium (8.5-10.1) mg/dL Ferritin (26-388) ng/ml Total Bilirubin (0.2-1.0) mg/dL AST (15-37) U/L ALT (16-63) U/L Alkaline Phosphatase (46-116) U/L Lactate Dehydrogenase (85-227) U/L C-Reactive Protein (<1.0) mg/dL Total Protein (6.4-8.2) g/dl Albumin (3.4-5.0) g/dl Globulin gm/dL Albumin/Globulin Ratio (1-2) Urine Color Yellow (Yellow) Urine Appearance Clear (Clear) Urine pH 5.5 (5.0-8.0) Ur Specific [place] 1.015 (1.005-1.030) Urine Protein Negative (Negative) Urine Glucose (UA) Negative (Negative) Urine Ketones Negative (Negative) Urine Occult Blood Negative (Negative) Urine Nitrite Negative (Negative) Urine Bilirubin Negative (Negative) Urine Urobilinogen 0.2 (0.2-1.0) Ur Leukocyte Esterase 1+ H (Negative) Urine RBC Not seen (0-5) /hpf Urine WBC 5-10 H (0-5) /hpf Ur Squamous Epith Cells 0-5 (0-5) /hpf Urine Bacteria Not seen (FEW) /hpf Urine Mucus Not seen (FEW) /hpf SARS-CoV-2 RNA (SHILA) (NEGATIVE) Meds: Medications Generic Name Dose Route Start Last Admin Trade Name Freq PRN Reason Stop Dose Admin Sodium Chloride 1,000 mls @ 1,000 mls/hr 07/27/20 20:00 07/27/20 20:17 Normal Saline IV 1,000 mls/hr .BOLUS REAL Administration Ceftriaxone Sodium 2 gm/ 100 mls @ 200 mls/hr 07/27/20 22:45 07/27/20 23:03 Sodium Chloride IV 200 mls/hr Q24H REAL Administration Sodium Chloride 1,000 mls @ 100 mls/hr 07/27/20 22:45 07/27/20 23:03 Normal Saline IV 100 mls/hr ASDIRECTED REAL Administration Sodium Chloride 10 ml 07/27/20 19:58 07/27/20 20:17 Saline Flush FLUSH 10 ml ASDIRECTED PRN Administration Keep Vein Open - Re-Assessments/Exams Free Text/Narrative Re-Assessment/Exam: 07/27/20 20:27 I ordered oxygen PRN, IV NS 1L bolus, labs, UA, CXR, blood cultures, lactic acid, COVID 19 and influenza. 07/27/20 22:10 His CXR shows no infiltrates. His WBC was elevated at 9.11. His Hgb was low at 9. His d-dimer was negative. His creatinine is elevated at 1.7. His glucose is elevated at 163. His lactic acid is elevated at 2.2. His AST is elevated at 41. His CRP is elevated at 2.9. His COVID 19 is negative. I am waiting on the UA results. 07/27/20 22:48 His UA shows the possible source. I will get a urine culture and rocephin 2 grams IV. I also will continue some fluids at 100ml/hr of NS. I feel he needs to be admitted. I called Dr Barahona and he agreed to the admission. Departure - Departure Time of Disposition: 23:30 Disposition: Refer to Observation Condition: Fair Clinical Impression: Renal insufficiency, Generalized weakness UTI (urinary tract infection) Qualifiers: Urinary tract infection type: acute cystitis Hematuria presence: without hematuria Qualified Code(s): N30.00 - Acute cystitis without hematuria - Discharge Information Referrals: Ganesh Luo MD [Primary Care Provider] - Forms: ED Department Discharge Sepsis Event Note (ED) - Evaluation Sepsis Screening Result: No Definite Risk - Focused Exam Vital Signs: Vital Signs Temp Pulse Resp BP Pulse Ox Pulse Ox 07/27/20 21:11 96 07/27/20 19:47 97.9 F 75 16 108/47 L 91 L - My Orders Last 24 Hours: My Active Orders 07/27/20 19:58 Cardiac Monitoring [RC] . DIRECTED Oxygen Therapy [RC] PRN Sodium Chloride 0.9% [Saline Flush] 10 ml FLUSH ASDIRECTED PRN Peripheral IV Insertion Adult [OM.PC] Stat 07/27/20 19:59 Peripheral IV Care [RC] . DIRECTED Chest 1V Frontal [CR] Stat Blood Culture x2 Reflex Set [OM.PC] Stat 07/27/20 20:00 Sodium Chloride 0.9% [Normal Saline] 1,000 ml IV .BOLUS 07/27/20 20:17 CULTURE BLOOD [BC] Stat 07/27/20 20:25 CULTURE BLOOD [BC] Stat 07/27/20 22:05 CULTURE URINE [RM] Stat 07/27/20 22:45 Sodium Chloride 0.9% [Normal Saline] 1,000 ml IV ASDIRECTED cefTRIAXone [Rocephin] 2 gm Sodium Chloride 0.9% [Normal Saline] 100 ml IV Q24H - Assessment/Plan Last 24 Hours: My Active Orders 07/27/20 19:58 Cardiac Monitoring [RC] . DIRECTED Oxygen Therapy [RC] PRN Sodium Chloride 0.9% [Saline Flush] 10 ml FLUSH ASDIRECTED PRN Peripheral IV Insertion Adult [OM.PC] Stat 07/27/20 19:59 Peripheral IV Care [RC] . DIRECTED Chest 1V Frontal [CR] Stat Blood Culture x2 Reflex Set [OM.PC] Stat 07/27/20 20:00 Sodium Chloride 0.9% [Normal Saline] 1,000 ml IV .BOLUS 07/27/20 20:17 CULTURE BLOOD [BC] Stat 07/27/20 20:25 CULTURE BLOOD [BC] Stat 07/27/20 22:05 CULTURE URINE [RM] Stat 07/27/20 22:45 Sodium Chloride 0.9% [Normal Saline] 1,000 ml IV ASDIRECTED cefTRIAXone [Rocephin] 2 gm Sodium Chloride 0.9% [Normal Saline] 100 ml IV Q24H
[2020-07-27] MEDS ORDERED: cefTRIAXone 2 GM in Sodium Chloride 0.9% 100 ML IV SCH (22:45)
[2020-07-28] MEDS ORDERED: Acetaminophen 325 MG Tab PO PRN (01:22)
[2020-07-28] MEDS ORDERED: Ondansetron 4 MG/2 ML SDV IVPUSH PRN (01:23)
--- NOTE | 2020-07-28 07:03 | PCM.HP.2 ---
H&P History of Present Illness - General Date of Service: 07/28/20 Admit Problem/Dx: Admission Diagnosis/Problem Admission Diagnosis/Problem Generalized weakness Source of Information: Patient, Old Records History Limitations: Reports: No Limitations, Other (The patient is a poor historian.) - History of Present Illness Initial Comments - Free Text/Narative: The patient is an 85-year-old gentleman who had presented to the emergency department from his assisted living facility with confusion, fever and generalized weakness. The patient reports that he was just unable to walk. He also says that he had a temperature. He had been weak and said he was unable to get out of his chair. The patient says that he has not been eating very well. Patient says he had been doing fine up until the time he got a flu shot. The patient is a somewhat of a poor historian and information has been taken from his previous medical records. The patient says that his recently from dementia. The patient does have a significant history of heart disease with bypass surgery, stenting and pacemaker placement. The patient's urinalysis from the emergency department is not consistent with urinary tract infection. Onset of Symptoms: Reports: Gradual Duration of Symptoms: Reports: Day(s):, Getting Worse Location: Reports: Lower Extremity, Left, Lower Extremity, Right, Generalized Quality: Reports: Ache Severity: Moderate Improves with: Reports: Medication Worsens with: Reports: Movement Context: Reports: Other (Influenza immunization) Associated Symptoms: Reports: Fever/Chills, Headaches - Related Data Allergies/Adverse Reactions: Allergies Allergy/AdvReac Type Severity Reaction Status Date / Time latex Allergy Unknown Cannot Verified 07/28/20 02:12 Remember adhesive Allergy Hives Verified 07/28/20 02:12 celecoxib Allergy Cannot Verified 07/28/20 02:12 Remember clopidogrel Allergy Cannot Verified 07/28/20 02:12 Remember ramipril [From Altace] Allergy Itching Verified 07/28/20 02:12 rofecoxib [From Vioxx] Allergy Edema Verified 07/27/20 19:52 sertraline Allergy Cannot Verified 07/28/20 02:12 Remember simvastatin Allergy Edema Verified 07/28/20 02:12 valsartan Allergy Cannot Verified 07/28/20 02:12 Remember chlordiazepoxide AdvReac Confusion Verified 07/28/20 02:12 clidinium [Clidinium] AdvReac Confusion Verified 07/28/20 02:12 pregabalin [From Lyrica] AdvReac Confusion Verified 07/27/20 19:52 Home Medications: Home Meds Digoxin [Lanoxin] 125 mcg PO DAILY 06/27/15 [History] Furosemide [Lasix] 80 mg PO BID 06/27/15 [History] Glimepiride [Amaryl] 5 mg PO BID 06/27/15 [History] Insulin Glarg,Human.Rec.Analog [LantUS Solostar] 50 units SUBCUT DAILY 06/27/15 [History] Metoprolol Succinate [Toprol XL] 100 mg PO BID 06/27/15 [History] dilTIAZem HCL [Diltiazem 24Hr ER (LA)] 240 mg PO DAILY 06/27/15 [History] Nitroglycerin [Nitrostat] 0.4 mg SL Q5M PRN 09/08/16 [History] Cyanocobalamin (Vitamin B-12) [Vitamin B-12] 2,500 mcg PO DAILY 06/12/17 [History] Isosorbide Mononitrate [Imdur] 60 mg PO DAILY 06/12/17 [History] atorvaSTATin [Lipitor] 40 mg PO DAILY 06/12/17 [History] Antiiva 1 tab PO DAILY 01/12/18 [History] Omeprazole 20 mg PO DAILY 01/12/18 [History] Acetaminophen [Tylenol] 650 mg PO Q4H PRN 07/27/20 [History] Aloe Vera/Sodium Chloride [Cabins Saline Nasal Gel] 1 applic TOP TID PRN 07/27/20 [History] Benzocaine/Menthol [Cepacol Sore Throat Lozenge] 1 tab PO Q1H PRN 07/27/20 [History] Diabetic Nerve Rejuvenator 1 tab PO BID 07/27/20 [History] Ferrous Sulfate 324 mg PO DAILY 07/27/20 [History] Hydrocodone/Acetaminophen [Hydrocodone-Acetamin 5-325 mg] 1 tab PO Q6H PRN 07/27/20 [History] Levothyroxine [Synthroid] 50 mcg PO DAILY 07/27/20 [History] Loperamide [Imodium] 2 mg PO ASDIRECTED PRN 07/27/20 [History] Potassium Chloride 20 meq PO DAILY 07/27/20 [History] Sennosides [Senna] 8.6 mg PO DAILY PRN 07/27/20 [History] Terazosin [Hytrin] 5 mg PO DAILY 07/27/20 [History] Terazosin [Hytrin] 10 mg PO BEDTIME 07/27/20 [History] Warfarin [Coumadin] 4 mg PO 1200 07/27/20 [History] guaiFENesin/Dextromethorphan [Tussin Dm Liquid] 10 ml PO Q4H PRN 07/27/20 [History] metOLazone [Metolazone] 2.5 mg PO MO 07/27/20 [History] Clopidogrel [Plavix] 75 mg PO BEDTIME 07/28/20 [History] Past Medical History HEENT History: Reports: Cataract Other HEENT History: has glasses, wears dentures Cardiovascular History: Reports: Afib, Angina, CAD, Heart Murmur, High Cholesterol, Hypertension, MA, Pacemaker, Other (See Below) Other Cardiovascular History: pad,chf Respiratory History: Reports: Sleep Apnea, SOB Other Respiratory History: does not use CPAP, has wheezing and history of pneumonia Gastrointestinal History: Reports: Colon Polyp, Hemorrhoids, PUD Other Gastrointestinal History: melanosis of coli, diverticulosis, small bowel obstruction, increased liver enzymes, chavis's esophagus Genitourinary History: Reports: BPH Other Genitourinary History: CHRONIC RENAL INSUFFICIENCY 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 Musculoskeletal History: Reports: Other (See Below) Other Musculoskeletal History: Right elbow olecranon bursitis, rotator cuff tear Neurological History: Reports: CVA, Vertigo Psychiatric History: Reports: None Endocrine/Metabolic History: Reports: Diabetes, Type II Hematologic History: Reports: None Immunologic History: Reports: None Oncologic (Cancer) History: Reports: Basal Cell Carcinoma Dermatologic History: Reports: Melanoma, Other (See Below) Other Dermatologic History: malignant skin neoplasm, basal cell carcinoma, actinic keratosis, junctional nevus, seborrheic keratosis, hemangioma - Infectious Disease History Other Infectious Disease History: unable to obtain from pt as he is not oriented - Past Surgical History HEENT Surgical History: Reports: Adenoidectomy, Cataract Surgery, Tonsillectomy Other HEENT Surgeries/Procedures: BILATERAL CATARACTS REMOVED, Cardiovascular Surgical History: Reports: AICD, Carotid Stents, Coronary Artery Bypass, Coronary Artery Stent, Pacer Other Cardiovascular Surgeries/Procedures: coronary stent placemement of RCA 09/11/1995. CABG 1995 (triple vessel). PTCA and stenting of LAD 10/15/03. PTCA with stenting (bare metal) to LAD 10/23/03. PTCA with drug eluding stent to LAD 12/01/03. cardiac catheterization (no intervention) 12/26/03. cardiac catheterization (no intervention) 09/18/05. cardiac catheterization (no intervention) 03/04/07. PTCA with drug eluding stent to LAD 06/16/10. PTCA with stenting (bare metal) to vein graft to R coronary artery 01/31/13. Coronary angioplasty proximal LAD in-stent restenosis with m synergy 09/11/16 GI Surgical History: Reports: Appendectomy, Colonoscopy, EGD Endocrine Surgical History: Reports: None Neurological Surgical History: Reports: Other (See Below) Other Neurological Surgeries/Procedures: PT REPORTS 2X BACK SURGERIES ONCE TO THORACIC, ONCE TO LUMBAR Musculoskeletal Surgical History: Reports: Shoulder Surgery Other Musculoskeletal Surgeries/Procedures:: bilateral rotator cuff tears and repairs (different times) Other Oncologic Surgeries/Procedures: MELANOMA OF BACK - EXCISED Dermatological Surgical History: Reports: Skin Biopsy Social & Family History - Family History Family Medical History: Noncontributory - Tobacco Use Tobacco Use Status *Q: Never Tobacco User Second Hand Smoke Exposure: No - Caffeine Use Caffeine Use: Reports: Coffee - Recreational Drug Use Recreational Drug Use: No - Living Situation & Occupation Living situation: Reports: (His 83-year-old is at home and is developing quite significant dementia at this time. He is therefore doing most of care and cooking.), with Spouse Occupation: Retired H&P Review of Systems - Review of Systems: Review Of Systems: See Below General: Reports: Fever, Chills, Weakness HEENT: Reports: No Symptoms Pulmonary: Reports: No Symptoms Cardiovascular: Reports: No Symptoms Gastrointestinal: Reports: No Symptoms Genitourinary: Reports: No Symptoms Musculoskeletal: Reports: Leg Pain Skin: Reports: No Symptoms Psychiatric: Reports: Depression, Mood Lability Neurological: Reports: Difficulty Walking Hematologic/Lymphatic: Reports: No Symptoms Immunologic: Reports: No Symptoms Exam - Exam Exam: See Below - Vital Signs Vital Signs: Last Vital Signs Temp 36.5 C 07/28/20 04:07 Pulse 75 07/28/20 04:07 Resp 18 07/28/20 04:07 BP 132/65 07/28/20 04:07 Pulse Ox 97 07/28/20 05:30 Weight: 84.414 kg - Exam Quality Assessment: Supplemental Oxygen General: Alert, Oriented, Mild Distress HEENT: Conjunctiva Clear, EACs Clear, EOMI, Hearing Intact. No: Mucosa Moist & [place] (Very dry) Neck: Supple, Trachea Midline Lungs: Clear to Auscultation, Normal Respiratory Effort Cardiovascular: Regular Rate (Paced rhythm), Regular Rhythm, Systolic Murmur GI/Abdominal Exam: Normal Bowel Sounds, Soft, No Distention (Male) Exam: Deferred Rectal (Males) Exam: Deferred Back Exam: No: Normal Inspection (Age-appropriate) Extremities: Normal Inspection, No Pedal Edema Skin: Warm, Dry, Intact Neurological: Cranial Nerves Intact, Strength Equal Bilateral Neuro Extensive - Mental Status: Alert, Oriented x3 Neuro Extensive - Motor, Sensory, Reflexes: CN II-XII Intact. No: Normal Gait Psychiatric: Alert, Labile Mood, Depressed - Patient Data Lab Results Last 24 hrs: Laboratory Results - last 24 hr 07/27/20 07/27/20 07/27/20 Range/Units 20:17 20:17 20:25 WBC 9.11 H (4.23-9.07) K/mm3 RBC 3.03 L (4.63-6.08) M/mm3 Hgb 9.0 L (13.7-17.5) gm/dl Hct 29.4 L (40.1-51.0) % MCV 97.0 H D (79.0-92.2) fl MCH 29.7 (25.7-32.2) pg MCHC 30.6 L (32.2-35.5) g/dl RDW Std Deviation 56.6 H (35.1-43.9) fL Plt Count 219 (163-337) K/mm3 MPV 9.1 L (9.4-12.3) fl Neut % (Auto) 93.5 H (34.0-67.9) % Lymph % (Auto) 1.2 L (21.8-53.1) % [place] % (Auto) 4.9 L (5.3-12.2) % Eos % (Auto) 0.2 L (0.8-7.0) Baso % (Auto) 0.1 (0.1-1.2) % Neut # (Auto) 8.51 H (1.78-5.38) K/mm3 Lymph # (Auto) 0.11 L (1.32-3.57) K/mm3 [place] # (Auto) 0.45 (0.30-0.82) K/mm3 Eos # (Auto) 0.02 L (0.04-0.54) K/mm3 Baso # (Auto) 0.01 (0.01-0.08) K/mm3 Manual Slide Review Abnormal smear D-Dimer, Quantitative 0.49 (0.19-0.50) mg/L Sodium (136-145) mEq/L Potassium (3.5-5.1) mEq/L Chloride (98-107) mEq/L Carbon Dioxide (21-32) mEq/L Anion Gap (5-15) BUN (7-18) mg/dL Creatinine (0.7-1.3) mg/dL Est Cr Clr Drug Dosing mL/min Estimated GFR (MDRD) (>60) mL/min BUN/Creatinine Ratio (14-18) Glucose (83-115) mg/dL Lactic Acid 2.2 H* (0.4-2.0) mmol/L Calcium (8.5-10.1) mg/dL Ferritin (26-388) ng/ml Total Bilirubin (0.2-1.0) mg/dL AST (15-37) U/L ALT (16-63) U/L Alkaline Phosphatase (46-116) U/L Lactate Dehydrogenase (85-227) U/L C-Reactive Protein (<1.0) mg/dL Total Protein (6.4-8.2) g/dl Albumin (3.4-5.0) g/dl Globulin gm/dL Albumin/Globulin Ratio (1-2) Urine Color (Yellow) Urine Appearance (Clear) Urine pH (5.0-8.0) Ur Specific [place] (1.005-1.030) Urine Protein (Negative) Urine Glucose (UA) (Negative) Urine Ketones (Negative) Urine Occult Blood (Negative) Urine Nitrite (Negative) Urine Bilirubin (Negative) Urine Urobilinogen (0.2-1.0) Ur Leukocyte Esterase (Negative) Urine RBC (0-5) /hpf Urine WBC (0-5) /hpf Ur Squamous Epith Cells (0-5) /hpf Urine Bacteria (FEW) /hpf Urine Mucus (FEW) /hpf SARS-CoV-2 RNA (SHILA) (NEGATIVE) MRSA (PCR) 07/27/20 07/27/20 07/27/20 Range/Units 20:25 20:25 20:25 WBC (4.23-9.07) K/mm3 RBC (4.63-6.08) M/mm3 Hgb (13.7-17.5) gm/dl Hct (40.1-51.0) % MCV (79.0-92.2) fl MCH (25.7-32.2) pg MCHC (32.2-35.5) g/dl RDW Std Deviation (35.1-43.9) fL Plt Count (163-337) K/mm3 MPV (9.4-12.3) fl Neut % (Auto) (34.0-67.9) % Lymph % (Auto) (21.8-53.1) % [place] % (Auto) (5.3-12.2) % Eos % (Auto) (0.8-7.0) Baso % (Auto) (0.1-1.2) % Neut # (Auto) (1.78-5.38) K/mm3 Lymph # (Auto) (1.32-3.57) K/mm3 [place] # (Auto) (0.30-0.82) K/mm3 Eos # (Auto) (0.04-0.54) K/mm3 Baso # (Auto) (0.01-0.08) K/mm3 Manual Slide Review D-Dimer, Quantitative (0.19-0.50) mg/L Sodium 136 (136-145) mEq/L Potassium 3.5 (3.5-5.1) mEq/L Chloride 98 (98-107) mEq/L Carbon Dioxide 28 (21-32) mEq/L Anion Gap 13.5 (5-15) BUN 33 H (7-18) mg/dL Creatinine 1.7 H (0.7-1.3) mg/dL Est Cr Clr Drug Dosing 33.60 mL/min Estimated GFR (MDRD) 38 (>60) mL/min BUN/Creatinine Ratio 19.4 H (14-18) Glucose 163 H (83-115) mg/dL Lactic Acid (0.4-2.0) mmol/L Calcium 8.7 (8.5-10.1) mg/dL Ferritin 48 (26-388) ng/ml Total Bilirubin 0.9 (0.2-1.0) mg/dL AST 41 H (15-37) U/L ALT 31 (16-63) U/L Alkaline Phosphatase 75 (46-116) U/L Lactate Dehydrogenase 189 (85-227) U/L C-Reactive Protein 2.9 H* (<1.0) mg/dL Total Protein 6.5 (6.4-8.2) g/dl Albumin 3.2 L (3.4-5.0) g/dl Globulin 3.3 gm/dL Albumin/Globulin Ratio 1.0 (1-2) Urine Color (Yellow) Urine Appearance (Clear) Urine pH (5.0-8.0) Ur Specific [place] (1.005-1.030) Urine Protein (Negative) Urine Glucose (UA) (Negative) Urine Ketones (Negative) Urine Occult Blood (Negative) Urine Nitrite (Negative) Urine Bilirubin (Negative) Urine Urobilinogen (0.2-1.0) Ur Leukocyte Esterase (Negative) Urine RBC (0-5) /hpf Urine WBC (0-5) /hpf Ur Squamous Epith Cells (0-5) /hpf Urine Bacteria (FEW) /hpf Urine Mucus (FEW) /hpf SARS-CoV-2 RNA (SHILA) Negative (NEGATIVE) MRSA (PCR) 07/27/20 07/28/20 07/28/20 Range/Units 22:00 00:30 02:08 WBC (4.23-9.07) K/mm3 RBC (4.63-6.08) M/mm3 Hgb (13.7-17.5) gm/dl Hct (40.1-51.0) % MCV (79.0-92.2) fl MCH (25.7-32.2) pg MCHC (32.2-35.5) g/dl RDW Std Deviation (35.1-43.9) fL Plt Count (163-337) K/mm3 MPV (9.4-12.3) fl Neut % (Auto) (34.0-67.9) % Lymph % (Auto) (21.8-53.1) % [place] % (Auto) (5.3-12.2) % Eos % (Auto) (0.8-7.0) Baso % (Auto) (0.1-1.2) % Neut # (Auto) (1.78-5.38) K/mm3 Lymph # (Auto) (1.32-3.57) K/mm3 [place] # (Auto) (0.30-0.82) K/mm3 Eos # (Auto) (0.04-0.54) K/mm3 Baso # (Auto) (0.01-0.08) K/mm3 Manual Slide Review D-Dimer, Quantitative (0.19-0.50) mg/L Sodium (136-145) mEq/L Potassium (3.5-5.1) mEq/L Chloride (98-107) mEq/L Carbon Dioxide (21-32) mEq/L Anion Gap (5-15) BUN (7-18) mg/dL Creatinine (0.7-1.3) mg/dL Est Cr Clr Drug Dosing mL/min Estimated GFR (MDRD) (>60) mL/min BUN/Creatinine Ratio (14-18) Glucose (83-115) mg/dL Lactic Acid 2.0 (0.4-2.0) mmol/L Calcium (8.5-10.1) mg/dL Ferritin (26-388) ng/ml Total Bilirubin (0.2-1.0) mg/dL AST (15-37) U/L ALT (16-63) U/L Alkaline Phosphatase (46-116) U/L Lactate Dehydrogenase (85-227) U/L C-Reactive Protein (<1.0) mg/dL Total Protein (6.4-8.2) g/dl Albumin (3.4-5.0) g/dl Globulin gm/dL Albumin/Globulin Ratio (1-2) Urine Color Yellow (Yellow) Urine Appearance Clear (Clear) Urine pH 5.5 (5.0-8.0) Ur Specific [place] 1.015 (1.005-1.030) Urine Protein Negative (Negative) Urine Glucose (UA) Negative (Negative) Urine Ketones Negative (Negative) Urine Occult Blood Negative (Negative) Urine Nitrite Negative (Negative) Urine Bilirubin Negative (Negative) Urine Urobilinogen 0.2 (0.2-1.0) Ur Leukocyte Esterase 1+ H (Negative) Urine RBC Not seen (0-5) /hpf Urine WBC 5-10 H (0-5) /hpf Ur Squamous Epith Cells 0-5 (0-5) /hpf Urine Bacteria Not seen (FEW) /hpf Urine Mucus Not seen (FEW) /hpf SARS-CoV-2 RNA (SHILA) (NEGATIVE) MRSA (PCR) Negative Result Diagrams: 07/27/20 20:25 07/27/20 20:25 Jose Results Last 24 hrs: Microbiology 07/27/20 20:30 Influenza Type A Antigen Screen - Final Nasal, Unspecified NEGATIVE INFLUENZA A VIRUS AG REFERENCE RANGE: NEGATIVE Influenza Type B Antigen Screen - Final NEGATIVE INFLUENZA B VIRUS AG REFERENCE RANGE: NEGATIVE Sepsis Event Note - Evaluation Sepsis Screening Result: No Definite Risk Current Stage of Sepsis: Ruled Out Reason for Ruling Out Sepsis: Afebrile, normal lactic acid, no leukocytosis, no tachypnea - Focused Exam Vital Signs: Vital Signs Temp Temp Pulse Pulse Resp BP BP 07/28/20 05:30 07/28/20 04:07 36.5 C 75 18 132/65 07/28/20 00:28 37.2 C 75 20 138/73 07/27/20 23:49 36.4 C 76 18 123/49 L 07/27/20 21:11 07/27/20 19:47 36.6 C 75 16 108/47 L Pulse Ox Pulse Ox 07/28/20 05:30 97 07/28/20 04:07 97 07/28/20 00:28 96 07/27/20 23:49 89 L 07/27/20 21:11 96 07/27/20 19:47 91 L - Problem List (1) Generalized weakness SNOMED Code(s): 62715565 ICD Code: R53.1 - WEAKNESS Status: Acute Priority: High Current Visit: Yes (2) Renal insufficiency SNOMED Code(s): 268473201, 450641349 ICD Code: N28.9 - DISORDER OF KIDNEY AND URETER, UNSPECIFIED Status: Chronic Priority: Medium Current Visit: Yes (3) COPD (chronic obstructive pulmonary disease) SNOMED Code(s): 98116238 ICD Code: J44.9 - CHRONIC OBSTRUCTIVE PULMONARY DISEASE, UNSPECIFIED Status: Chronic Priority: Medium Current Visit: No Qualifiers: COPD type: emphysema Emphysema type: unspecified Qualified Code(s): J43.9 - Emphysema, unspecified (4) Chronic renal insufficiency SNOMED Code(s): 085507022 ICD Code: N18.9 - CHRONIC KIDNEY DISEASE, UNSPECIFIED Status: Chronic Priority: Medium Current Visit: Yes Qualifiers: Chronic kidney disease stage: stage 3 (moderate) (5) Diabetes mellitus SNOMED Code(s): 59240411 ICD Code: E11.9 - TYPE 2 DIABETES MELLITUS WITHOUT COMPLICATIONS Status: Acute Current Visit: No (6) HTN, Benign essential hypertension SNOMED Code(s): 1078429 ICD Code: I10 - ESSENTIAL (PRIMARY) HYPERTENSION Status: Acute Current Visit: No Problem List Initiated/Reviewed/Updated: Yes Orders Last 24hrs: Active Orders 24 hr Category Date Time Status Admission Status [Patient Status] [ADT] Routine ADT 07/27/20 23:41 Active Bedrest [RC] ASDIRECTED Care 07/28/20 01:19 Active Cardiac Monitoring [RC] . DIRECTED Care 07/27/20 19:58 Active Oxygen Therapy [RC] PRN Care 07/27/20 19:58 Active Peripheral IV Care [RC] Q2HR Care 07/27/20 19:59 Active Regular Diet [DIET] Diet 07/28/20 Breakfast Active Chest 1V Frontal [CR] Stat Exams 07/27/20 19:59 Taken CULTURE BLOOD [BC] Stat Lab 07/27/20 20:17 Received CULTURE BLOOD [BC] Stat Lab 07/27/20 20:25 Received CULTURE URINE [RM] Stat Lab 07/27/20 22:05 Received Acetaminophen [TylenoL] Med 07/28/20 01:22 Active 975 mg PO Q4H PRN Ondansetron [Zofran] Med 07/28/20 01:23 Active 4 mg IVPUSH Q6HR PRN Sodium Chloride 0.9% [Normal Saline] 1,000 ml Med 07/28/20 02:00 Active IV ASDIRECTED Sodium Chloride 0.9% [Saline Flush] Med 07/27/20 19:58 Active 10 ml FLUSH ASDIRECTED PRN cefTRIAXone [Rocephin] 2 gm Med 07/28/20 23:00 Active Sodium Chloride 0.9% [Normal Saline] 100 ml IV Q24H Blood Culture x2 Reflex Set [OM.PC] Stat Oth 07/27/20 19:59 Ordered Peripheral IV Insertion Adult [OM.PC] Stat Oth 07/27/20 19:58 Ordered Resuscitation Status Routine Resus Stat 07/28/20 01:17 Ordered Medication Orders Acetaminophen (Tylenol) 975 mg PO Q4H PRN PRN Reason: Pain/Fever Ceftriaxone Sodium 2 gm/ (Sodium Chloride) 100 mls @ 200 mls/hr IV Q24H REAL Sodium Chloride (Normal Saline) 1,000 mls @ 100 mls/hr IV ASDIRECTED REAL Ondansetron HCl (Zofran) 4 mg IVPUSH Q6HR PRN PRN Reason: Nausea/Vomiting Sodium Chloride (Saline Flush) 10 ml FLUSH ASDIRECTED PRN PRN Reason: Keep Vein Open Last Admin: 07/27/20 20:17 Dose: 10 ml Documented by: DEBORA Assessment/Plan Comment:: The patient is an 85-year-old gentleman who has been admitted secondary to weakness, inability to walk after flu shot. I cannot exclude Guillain-Sierra syndrome at this time. I have ordered PT OT to help with the patient to ambulate and work with ADLs. I have also ordered respiratory to conduct PFTs as well as assess breathing. He also be kept on oxygen as necessary to keep his saturations above 90%. The patient will have a diabetic diet as tolerated. He also be kept on insulin sliding scale with Accu-Cheks before meals and at bed time. The patient has been LEIGHANN hose for DVT prophylaxis as the patient is at fall risk for SCDs and is currently on warfarin. Repeat laboratory studies have been ordered for the morning. The patient's home medications have been started. - Mortality Measure Prognosis:: Poor
[2020-07-28] MEDS ORDERED: Nitroglycerin 0.4 MG Tab.SL SL PRN (07:39)
[2020-07-28] MEDS ORDERED: Non-Formulary Medication 1 Each (Aloe Vera/Sodium Chloride [Ayr Saline Nasal Gel] 1 APPLIC TOP PRN (07:39)
[2020-07-28] MEDS ORDERED: Loperamide 2 MG Cap PO PRN (07:39)
[2020-07-28] MEDS ORDERED: 50% Dextrose in Water 50 ML Syringe IV PRN (07:43)
[2020-07-28] MEDS ORDERED: Glucagon,Human Recombinant 1 MG Vial IM PRN (07:43)
[2020-07-28] MEDS ORDERED: Sennosides 8.6 MG Tab PO PRN (07:52)
[2020-07-28] MEDS ORDERED: Benzocaine/Cetylpyridinium/Menthol Lozenge MUCMEM PRN (07:54)
[2020-07-28] MEDS ORDERED: [UNRECOGNIZED DRUG - OTHER] PO SCH (09:00)
[2020-07-28] MEDS: Cyanocobalamin (Vitamin B12) 1,000 MCG Tab PO SCH (10:21)
[2020-07-28] MEDS: Ferrous Sulfate 324 MG Tab.EC PO SCH (10:25)
[2020-07-28] MEDS: Insulin Regular, Human 100 Units/ML 3 ML Vial SUBCUT SCH ×4 (10:27→18:01)
[2020-07-28] MEDS ORDERED: Acetaminophen/HYDROcodone 325-5 MG Tab PO PRN (11:39)
[2020-07-28] MEDS: Digoxin 125 MCG Tab PO SCH (11:52)
[2020-07-28] MEDS: glipiZIDE 5 MG Tab PO SCH ×2 (11:52→17:30)
[2020-07-28] MEDS: Terazosin 5 MG Cap PO SCH (11:53)
[2020-07-28] MEDS: Isosorbide Mononitrate 60 MG Tab.ER PO SCH (11:58)
[2020-07-28] MEDS: Metoprolol Succinate 50 MG Tab.ER PO SCH ×2 (11:58→20:11)
[2020-07-28] MEDS: Furosemide 40 MG Tab PO SCH ×2 (11:58→20:11)
[2020-07-28] MEDS: Rosuvastatin 10 MG Tab PO SCH (11:59)
[2020-07-28] MEDS: Potassium Chloride 20 MEQ Tab.ER PO SCH (11:59)
[2020-07-28] MEDS: Pantoprazole 40 MG Tab.CR PO SCH (11:59)
[2020-07-28] MEDS: Diltiazem 240 MG Cap.ER PO SCH (11:59)
[2020-07-28] MEDS: Sodium Chloride 0.9% 1,000 ML IV SCH ×2 (12:34→23:11)
[2020-07-28] MEDS: Warfarin 4 MG Tab PO SCH (17:30)
[2020-07-28] MEDS: Clopidogrel 75 MG Tab PO SCH (20:11)
[2020-07-28] MEDS ORDERED: Terazosin 5 MG Cap PO SCH (21:00)
[2020-07-28] MEDS ORDERED: cefTRIAXone 2 GM in Sodium Chloride 0.9% 100 ML IV SCH (23:00)
[2020-07-29] MEDS: Levothyroxine 50 MCG Tab PO SCH (06:11)
[2020-07-29] MEDS: glipiZIDE 5 MG Tab PO SCH ×2 (06:11→18:12)
--- NOTE | 2020-07-29 07:31 | PCM.PN ---
- General Info Date of Service: 07/29/20 Admission Dx/Problem (Free Text): Admission Diagnosis/Problem Admission Diagnosis/Problem Generalized weakness Subjective Update: The patient is an 85-year-old gentleman who was admitted to acute hospitalization on July 27, 2020. The patient was admitted for generalized weakness. The patient says that he had gotten the flu shot and all of his problems have stemmed from the flu shot. And to discharge the patient today however, he reported that he had been feeling dizzy and having visual problems. Patient has been tolerating his diet. The patient has no other complaints at this time. Functional Status: Reports: Pain Controlled, Tolerating Diet - Review of Systems General: Reports: Weakness HEENT: Reports: Visual Changes Pulmonary: Reports: No Symptoms Cardiovascular: Reports: No Symptoms Gastrointestinal: Reports: No Symptoms Genitourinary: Reports: No Symptoms Musculoskeletal: Reports: No Symptoms Skin: Reports: No Symptoms Neurological: Reports: Dizziness Psychiatric: Reports: No Symptoms - Patient Data Vitals - Most Recent: Last Vital Signs Temp 36.6 C 07/29/20 05:04 Pulse 80 07/29/20 05:04 Resp 18 07/29/20 05:04 BP 118/53 L 07/29/20 05:04 Pulse Ox 93 L 07/29/20 05:04 Weight - Most Recent: 83.869 kg I&O - Last 24 Hours: Intake & Output 07/28/20 07/29/20 07/29/20 22:59 06:59 14:59 Intake Total 1100 1698 Output Total 250 750 Balance 850 948 Lab Results Last 24 Hours: Laboratory Results - last 24 hr 07/28/20 07/28/20 07/28/20 Range/Units 08:03 08:58 11:20 WBC (4.23-9.07) K/mm3 RBC (4.63-6.08) M/mm3 Hgb (13.7-17.5) gm/dl Hct (40.1-51.0) % MCV (79.0-92.2) fl MCH (25.7-32.2) pg MCHC (32.2-35.5) g/dl RDW Std Deviation (35.1-43.9) fL Plt Count (163-337) K/mm3 MPV (9.4-12.3) fl Neut % (Auto) (34.0-67.9) % Lymph % (Auto) (21.8-53.1) % [place] % (Auto) (5.3-12.2) % Eos % (Auto) (0.8-7.0) Baso % (Auto) (0.1-1.2) % Neut # (Auto) (1.78-5.38) K/mm3 Lymph # (Auto) (1.32-3.57) K/mm3 [place] # (Auto) (0.30-0.82) K/mm3 Eos # (Auto) (0.04-0.54) K/mm3 Baso # (Auto) (0.01-0.08) K/mm3 PT 21.2 H (9.7-11.7) SECONDS INR 2.01 Sodium (136-145) mEq/L Potassium (3.5-5.1) mEq/L Chloride (98-107) mEq/L Carbon Dioxide (21-32) mEq/L Anion Gap (5-15) BUN (7-18) mg/dL Creatinine (0.7-1.3) mg/dL Est Cr Clr Drug Dosing mL/min Estimated GFR (MDRD) (>60) mL/min BUN/Creatinine Ratio (14-18) Glucose (83-115) mg/dL POC Glucose 121 H 179 H (83-110) mg/dL Calcium (8.5-10.1) mg/dL 07/28/20 07/29/20 07/29/20 Range/Units 22:45 05:32 05:32 WBC 5.05 (4.23-9.07) K/mm3 RBC 2.81 L (4.63-6.08) M/mm3 Hgb 8.3 L (13.7-17.5) gm/dl Hct 27.3 L (40.1-51.0) % MCV 97.2 H (79.0-92.2) fl MCH 29.5 (25.7-32.2) pg MCHC 30.4 L (32.2-35.5) g/dl RDW Std Deviation 58.3 H (35.1-43.9) fL Plt Count 180 (163-337) K/mm3 MPV 9.6 (9.4-12.3) fl Neut % (Auto) 78.0 H (34.0-67.9) % Lymph % (Auto) 9.1 L (21.8-53.1) % [place] % (Auto) 9.9 (5.3-12.2) % Eos % (Auto) 2.8 (0.8-7.0) Baso % (Auto) 0.2 (0.1-1.2) % Neut # (Auto) 3.94 (1.78-5.38) K/mm3 Lymph # (Auto) 0.46 L (1.32-3.57) K/mm3 [place] # (Auto) 0.50 (0.30-0.82) K/mm3 Eos # (Auto) 0.14 (0.04-0.54) K/mm3 Baso # (Auto) 0.01 (0.01-0.08) K/mm3 PT (9.7-11.7) SECONDS INR Sodium 137 (136-145) mEq/L Potassium 3.1 L (3.5-5.1) mEq/L Chloride 101 (98-107) mEq/L Carbon Dioxide 29 (21-32) mEq/L Anion Gap 10.1 (5-15) BUN 27 H (7-18) mg/dL Creatinine 1.3 (0.7-1.3) mg/dL Est Cr Clr Drug Dosing 38.73 mL/min Estimated GFR (MDRD) 52 (>60) mL/min BUN/Creatinine Ratio 20.8 H (14-18) Glucose 110 (83-115) mg/dL POC Glucose 150 H (83-110) mg/dL Calcium 8.0 L (8.5-10.1) mg/dL 07/29/20 Range/Units 05:32 WBC (4.23-9.07) K/mm3 RBC (4.63-6.08) M/mm3 Hgb (13.7-17.5) gm/dl Hct (40.1-51.0) % MCV (79.0-92.2) fl MCH (25.7-32.2) pg MCHC (32.2-35.5) g/dl RDW Std Deviation (35.1-43.9) fL Plt Count (163-337) K/mm3 MPV (9.4-12.3) fl Neut % (Auto) (34.0-67.9) % Lymph % (Auto) (21.8-53.1) % [place] % (Auto) (5.3-12.2) % Eos % (Auto) (0.8-7.0) Baso % (Auto) (0.1-1.2) % Neut # (Auto) (1.78-5.38) K/mm3 Lymph # (Auto) (1.32-3.57) K/mm3 [place] # (Auto) (0.30-0.82) K/mm3 Eos # (Auto) (0.04-0.54) K/mm3 Baso # (Auto) (0.01-0.08) K/mm3 PT (9.7-11.7) SECONDS INR Sodium (136-145) mEq/L Potassium (3.5-5.1) mEq/L Chloride (98-107) mEq/L Carbon Dioxide (21-32) mEq/L Anion Gap (5-15) BUN (7-18) mg/dL Creatinine (0.7-1.3) mg/dL Est Cr Clr Drug Dosing mL/min Estimated GFR (MDRD) (>60) mL/min BUN/Creatinine Ratio (14-18) Glucose (83-115) mg/dL POC Glucose 114 H (83-110) mg/dL Calcium (8.5-10.1) mg/dL Jose Results Last 24 Hours: Microbiology 07/27/20 20:25 Aerobic Blood Culture - Preliminary Blood - Venous - Lab Draw NO GROWTH AFTER 1 DAY Anaerobic Blood Culture - Preliminary NO GROWTH AFTER 1 DAY 07/27/20 20:17 Aerobic Blood Culture - Preliminary Blood - Venous NO GROWTH AFTER 1 DAY Anaerobic Blood Culture - Preliminary NO GROWTH AFTER 1 DAY Med Orders - Current: Current Medications Acetaminophen (Tylenol) 975 mg PO Q4H PRN PRN Reason: Pain/Fever Hydrocodone Bitart/Acetaminophen ([place] 325-5 Mg) 1 tab PO Q6H PRN PRN Reason: Pain (moderate 4-6) Benzocaine/Menthol (Cepacol Sore Throat) 1 lozenge MUCMEM Q1H PRN PRN Reason: sore throat Clopidogrel Bisulfate (Plavix) 75 mg PO BEDTIME REAL Last Admin: 07/28/20 20:11 Dose: 75 mg Documented by: Cyanocobalamin (Vitamin B12) 2,500 mcg PO DAILY [facility] Last Admin: 07/28/20 10:21 Dose: 2,500 mcg Documented by: Dextrose/Water (Dextrose 50% In Water) 50 ml IV ASDIRECTED PRN PRN Reason: Hypoglycemia Digoxin (Lanoxin) 125 mcg PO DAILY [facility] Last Admin: 07/28/20 11:52 Dose: 125 mcg Documented by: Diltiazem HCl (Dilacor Xr) 240 mg PO DAILY [facility] Last Admin: 07/28/20 11:59 Dose: 240 mg Documented by: Ferrous Sulfate (Ferrous Sulfate) 324 mg PO DAILY [facility] Last Admin: 07/28/20 10:25 Dose: 324 mg Documented by: Furosemide (Lasix) 80 mg PO BID [facility] Last Admin: 07/28/20 20:11 Dose: 80 mg Documented by: Glipizide (Glucotrol) 5 mg PO BIDMEALS [facility] Last Admin: 07/29/20 06:11 Dose: 5 mg Documented by: Glucagon (Glucagen) 1 mg IM ASDIRECTED PRN PRN Reason: Hypoglycemia Sodium Chloride (Normal Saline) 1,000 mls @ 100 mls/hr IV ASDIRECTED [facility] Last Admin: 07/28/20 23:11 Dose: 100 mls/hr Documented by: Insulin Human Regular (Humulin R) 0 unit SUBCUT [facility]; Protocol Last Admin: 07/28/20 18:01 Dose: Not Given Documented by: Isosorbide Mononitrate (Imdur) 60 mg PO DAILY [facility] Last Admin: 07/28/20 11:58 Dose: 60 mg Documented by: Levothyroxine Sodium (Synthroid) 50 mcg PO ACBREAKFAST [facility] Last Admin: 07/29/20 06:11 Dose: 50 mcg Documented by: Loperamide HCl (Imodium) 2 mg PO ASDIRECTED PRN PRN Reason: Diarrhea Metolazone (Zaroxolyn) 2.5 mg PO MO [facility] Metoprolol Succinate (Toprol Xl) 100 mg PO BID [facility] Last Admin: 07/28/20 20:11 Dose: 100 mg Documented by: Nitroglycerin (Nitrostat) 0.4 mg SL Q5M PRN PRN Reason: Chest Pain Ondansetron HCl (Zofran) 4 mg IVPUSH Q6HR PRN PRN Reason: Nausea/Vomiting Pantoprazole Sodium (Protonix) 40 mg PO DAILY [facility] Last Admin: 07/28/20 11:59 Dose: 40 mg Documented by: Potassium Chloride (Klor-Con M20) 20 meq PO DAILY [facility] Last Admin: 07/28/20 11:59 Dose: 20 meq Documented by: Rosuvastatin Calcium (Crestor) 10 mg PO DAILY [facility] Last Admin: 07/28/20 11:59 Dose: 10 mg Documented by: Senna (Senna) 8.6 mg PO DAILY PRN PRN Reason: Constipation Last Admin: 07/28/20 18:28 Dose: 8.6 mg Documented by: Sodium Chloride (Saline Flush) 10 ml FLUSH ASDIRECTED PRN PRN Reason: Keep Vein Open Last Admin: 07/27/20 20:17 Dose: 10 ml Documented by: Terazosin HCl (Hytrin) 5 mg PO DAILY [facility] Last Admin: 07/28/20 11:53 Dose: 5 mg Documented by: Warfarin Sodium (Coumadin) 4 mg PO 1800 [facility] Last Admin: 07/28/20 17:30 Dose: 4 mg Documented by: Discontinued Medications Sodium Chloride (Normal Saline) 1,000 mls @ 1,000 mls/hr IV .BOLUS [facility] Last Admin: 07/27/20 20:17 Dose: 1,000 mls/hr Documented by: Ceftriaxone Sodium 2 gm/ (Sodium Chloride) 100 mls @ 200 mls/hr IV Q24H [facility] Last Admin: 07/27/20 23:03 Dose: 200 mls/hr Documented by: Sodium Chloride (Normal Saline) 1,000 mls @ 100 mls/hr IV ASDIRECTED [facility] Last Admin: 07/27/20 23:03 Dose: 100 mls/hr Documented by: Ceftriaxone Sodium 2 gm/ (Sodium Chloride) 100 mls @ 200 mls/hr IV Q24H [facility] Non-Formulary Medication (Aloe Vera/Sodium Chloride [[place] Saline Nasal Gel]) 1 applic TOP TID PRN PRN Reason: dry nose Non-Formulary Medication (Antiiva) 1 tab PO DAILY [facility] Last Admin: 07/28/20 16:27 Dose: Not Given Documented by: Terazosin HCl (Hytrin) 10 mg PO BEDTIME REAL - Exam Quality Assessment: DVT Prophylaxis. No: Supplemental Oxygen General: Alert, Oriented, Cooperative HEENT: Pupils Equal, Pupils Reactive, EOMI, Mucous Membr. Moist/[place] Neck: Supple, Trachea Midline Lungs: Clear to Auscultation, Normal Respiratory Effort Cardiovascular: Regular Rate, Irregular Rhythm, Murmurs GI/Abdominal Exam: Normal Bowel Sounds, Soft, Non-Tender, No Distention (Male) Exam: Deferred Back Exam: Normal Inspection Extremities: Normal Inspection, No Pedal Edema Skin: Warm, Dry, Intact Neurological: No New Focal Deficit Psy/Mental Status: Alert, Normal Affect, Normal Mood Sepsis Event Note - Evaluation Sepsis Screening Result: No Definite Risk - Focused Exam Vital Signs: Vital Signs Temp Pulse Resp BP Pulse Ox 07/29/20 05:04 36.6 C 80 18 118/53 L 93 L 07/28/20 23:54 36.8 C 74 16 103/45 L 92 L 07/28/20 20:11 85 106/64 07/28/20 20:08 36.1 C 85 14 106/64 95 - Problem List & Annotations (1) Generalized weakness SNOMED Code(s): 36782195 Code(s): R53.1 - WEAKNESS Status: Acute Priority: High Current Visit: Yes (2) Renal insufficiency SNOMED Code(s): 456208634, 880046213 Code(s): N28.9 - DISORDER OF KIDNEY AND URETER, UNSPECIFIED Status: Chronic Priority: Medium Current Visit: Yes (3) COPD (chronic obstructive pulmonary disease) SNOMED Code(s): 56007201 Code(s): J44.9 - CHRONIC OBSTRUCTIVE PULMONARY DISEASE, UNSPECIFIED Status: Chronic Priority: Medium Current Visit: No Qualifiers: COPD type: emphysema Emphysema type: unspecified Qualified Code(s): J43.9 - Emphysema, unspecified (4) Chronic renal insufficiency SNOMED Code(s): 773911283 Code(s): N18.9 - CHRONIC KIDNEY DISEASE, UNSPECIFIED Status: Chronic Priority: Medium Current Visit: Yes Qualifiers: Chronic kidney disease stage: stage 3 (moderate) (5) Diabetes mellitus SNOMED Code(s): 76046081 Code(s): E11.9 - TYPE 2 DIABETES MELLITUS WITHOUT COMPLICATIONS Status: Acute Current Visit: No (6) HTN, Benign essential hypertension SNOMED Code(s): 9892333 Code(s): I10 - ESSENTIAL (PRIMARY) HYPERTENSION Status: Acute Current Visit: No - Problem List Review Problem List Initiated/Reviewed/Updated: Yes - My Orders Last 24 Hours: My Active Orders 07/28/20 07:39 Loperamide [Imodium] 2 mg PO ASDIRECTED PRN Nitroglycerin [Nitrostat] 0.4 mg SL Q5M PRN 07/28/20 07:43 Blood Glucose Check, Bedside [RC] QIDACANDBED Oxygen Therapy [RC] PRN Up With Assistance [RC] ASDIRECTED VTE/DVT Education [RC] DAILY Vital Signs [RC] Q4HR OT Evaluation and Treatment [CONS] Routine PT Evaluation and Treatment [CONS] Routine Dextrose 50% in Water 50 ml IV ASDIRECTED PRN Glucagon,Human Recombinant [GlucaGen] 1 mg IM ASDIRECTED PRN Glucose Management Sub Q Reflex [OM.PC] Click to Edit VTE Mechanical Contraindications [AST] Per Unit Routine VTE Pharmacological Contraindications [AST] Per Unit Routine 07/28/20 07:44 Diabetes Education [RC] Click to Edit Antiembolic Hose [OM.PC] Per Unit Routine 07/28/20 07:46 Antiembolic Devices [RC] BID 07/28/20 07:52 Sennosides [Senna] 8.6 mg PO DAILY PRN 07/28/20 07:54 Benzocaine/Cetylpyrd/Menthol [Cepacol Sore Throat] 1 lozenge MUCMEM Q1H PRN 07/28/20 08:14 Consult to Respiratory Therapy [Respiratory Care Assess and Treatment] [CONS] Routine 07/28/20 08:15 Resuscitation Status Routine 07/28/20 09:00 Cyanocobalamin (Vitamin B12) [Vitamin B12] 2,500 mcg PO DAILY Ferrous Sulfate 324 mg PO DAILY Insulin Regular, Human [HumuLIN R] See Protocol SUBCUT [facility] 07/28/20 Lunch Consistent Carbohydrate Diet [DIET] PFT with Bronchodilator [RT Spirometry with Bronchodilator] [RESPCARE] Routine 07/28/20 11:14 Admission Status [Patient Status] [ADT] Routine 07/28/20 11:39 Acetaminophen/HYDROcodone [[place] 325-5 MG] 1 tab PO Q6H PRN 07/28/20 12:00 Digoxin [Lanoxin] 125 mcg PO DAILY Diltiazem [Dilacor XR] 240 mg PO DAILY Furosemide [Lasix] 80 mg PO BID Isosorbide Mononitrate [Imdur] 60 mg PO DAILY Metoprolol Succinate [Toprol XL] 100 mg PO BID Pantoprazole [ProTONIX] 40 mg PO DAILY Potassium Chloride [Klor-Con M20] 20 meq PO DAILY Rosuvastatin [Crestor] 10 mg PO DAILY Terazosin [Hytrin] 5 mg PO DAILY glipiZIDE [Glucotrol] 5 mg PO BIDMEALS 07/28/20 18:00 Warfarin [Coumadin] 4 mg PO 1800 07/28/20 21:00 Clopidogrel [Plavix] 75 mg PO BEDTIME 07/29/20 05:32 CBC WITH AUTO DIFF [HEME] AM 07/29/20 06:00 Levothyroxine [Synthroid] 50 mcg PO ACBREAKFAST 08/02/20 09:00 metOLazone [Zaroxolyn] 2.5 mg PO MO - Plan Plan:: The patient is an 85-year-old gentleman who has been admitted secondary to weakness, inability to walk after flu shot. I cannot exclude Guillain-Sierra syndrome at this time. I have ordered PT OT to help with the patient to ambulate and work with ADLs. I have also ordered respiratory to conduct PFTs as well as assess breathing. He also be kept on oxygen as necessary to keep his saturations above 90%. The patient will have a diabetic diet as tolerated. He also be kept on insulin sliding scale with Accu-Cheks before meals and at bedtime. The patient has been LEIGHANN hose for DVT prophylaxis as the patient is at fall risk for SCDs and is currently on warfarin. Repeat laboratory studies have been ordered for the morning. The patient's home medications have been started. 07/29/2020 . The patient overall has improved somewhat today. Patient says that he has been having difficulty with weakness stable as well as some dizziness. 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 This is to exclude acute CVA. PT OT will continue to work with the patient. He will be kept on his diabetic diet as tolerated. The patient will also be kept on SCDs for DVT prophylaxis as he is currently taking Coumadin. I anticipate the patient being discharged tomorrow.
[2020-07-29] MEDS: Furosemide 40 MG Tab PO SCH ×3 (08:50→20:25)
[2020-07-29] MEDS: Terazosin 5 MG Cap PO SCH (08:51)
[2020-07-29] MEDS: Isosorbide Mononitrate 60 MG Tab.ER PO SCH (08:52)
[2020-07-29] MEDS: Diltiazem 240 MG Cap.ER PO SCH (08:52)
[2020-07-29] MEDS: Ferrous Sulfate 324 MG Tab.EC PO SCH (08:53)
[2020-07-29] MEDS: Rosuvastatin 10 MG Tab PO SCH (08:53)
[2020-07-29] MEDS: Cyanocobalamin (Vitamin B12) 1,000 MCG Tab PO SCH (08:53)
[2020-07-29] MEDS: Potassium Chloride 20 MEQ Tab.ER PO SCH (08:54)
[2020-07-29] MEDS: Pantoprazole 40 MG Tab.CR PO SCH (08:54)
[2020-07-29] MEDS: Digoxin 125 MCG Tab PO SCH (08:55)
[2020-07-29] MEDS: Metoprolol Succinate 50 MG Tab.ER PO SCH ×3 (08:56→20:25)
[2020-07-29] MEDS: Insulin Regular, Human 100 Units/ML 3 ML Vial SUBCUT SCH ×3 (09:10→18:18)
[2020-07-29] MEDS ORDERED: Sodium Chloride 0.9% 10 ML Syringe FLUSH PRN (11:38)
[2020-07-29] MEDS ORDERED: Iopamidol 755 Mg/ML 100 ML Bottle IVPUSH ONE (11:38)
[2020-07-29] MEDS ORDERED: Sodium Chloride 0.9% 100 ML IV SCH (11:45)
[2020-07-29] MEDS: Warfarin 4 MG Tab PO SCH (18:12)
[2020-07-29] MEDS: Clopidogrel 75 MG Tab PO SCH ×2 (19:53→20:26)
[2020-07-30] MEDS: Levothyroxine 50 MCG Tab PO SCH (06:23)
[2020-07-30] MEDS: glipiZIDE 5 MG Tab PO SCH ×2 (06:23→18:05)
--- NOTE | 2020-07-30 08:09 | PCM.PN ---
- General Info Date of Service: 07/30/20 Admission Dx/Problem (Free Text): Admission Diagnosis/Problem Admission Diagnosis/Problem Generalized weakness Subjective Update: The patient is an 85-year-old gentleman who was admitted through the emergency department on July 28, 2020. This was out of concern for weakness. Urinary tract infection has been ruled out and cultures are currently pending. Patient today says that he is upset because he had a fever overnight and he will be staying 1 more day. He has denied any pain. He has not been tolerating diet. The patient has been blaming all of his symptoms and weakness on a flu shot he received. Functional Status: Reports: Pain Controlled. Denies: Tolerating Diet - Review of Systems General: Reports: Weakness HEENT: Reports: No Symptoms Pulmonary: Reports: No Symptoms Cardiovascular: Reports: No Symptoms Gastrointestinal: Reports: No Symptoms Genitourinary: Reports: No Symptoms Musculoskeletal: Reports: Back Pain Skin: Reports: No Symptoms Neurological: Reports: No Symptoms Psychiatric: Reports: No Symptoms - Patient Data Vitals - Most Recent: Last Vital Signs Temp 36.6 C 07/30/20 03:52 Pulse 81 07/30/20 03:52 Resp 18 07/30/20 03:52 BP 127/71 07/30/20 03:52 Pulse Ox 93 L 07/30/20 03:52 Weight - Most Recent: 81.601 kg I&O - Last 24 Hours: Intake & Output 07/29/20 07/30/20 07/30/20 22:59 06:59 14:59 Intake Total 1130 700 Output Total 400 1000 Balance 730 -300 Lab Results Last 24 Hours: Laboratory Results - last 24 hr 07/29/20 07/29/20 07/29/20 Range/Units 11:41 17:41 21:26 WBC (4.23-9.07) K/mm3 RBC (4.63-6.08) M/mm3 Hgb (13.7-17.5) gm/dl Hct (40.1-51.0) % MCV (79.0-92.2) fl MCH (25.7-32.2) pg MCHC (32.2-35.5) g/dl RDW Std Deviation (35.1-43.9) fL Plt Count (163-337) K/mm3 MPV (9.4-12.3) fl Neut % (Auto) (34.0-67.9) % Lymph % (Auto) (21.8-53.1) % Real % (Auto) (5.3-12.2) % Eos % (Auto) (0.8-7.0) Baso % (Auto) (0.1-1.2) % Neut # (Auto) (1.78-5.38) K/mm3 Lymph # (Auto) (1.32-3.57) K/mm3 Real # (Auto) (0.30-0.82) K/mm3 Eos # (Auto) (0.04-0.54) K/mm3 Baso # (Auto) (0.01-0.08) K/mm3 Manual Slide Review PT (9.7-12.0) SECONDS INR Sodium (136-145) mEq/L Potassium (3.5-5.1) mEq/L Chloride (98-107) mEq/L Carbon Dioxide (21-32) mEq/L Anion Gap (5-15) BUN (7-18) mg/dL Creatinine (0.7-1.3) mg/dL Est Cr Clr Drug Dosing mL/min Estimated GFR (MDRD) (>60) mL/min BUN/Creatinine Ratio (14-18) Glucose (83-115) mg/dL POC Glucose 209 H 171 H 233 H (83-110) mg/dL Calcium (8.5-10.1) mg/dL 07/30/20 07/30/20 07/30/20 Range/Units 05:55 05:55 05:55 WBC 6.47 (4.23-9.07) K/mm3 RBC 2.83 L (4.63-6.08) M/mm3 Hgb 8.2 L (13.7-17.5) gm/dl Hct 27.4 L (40.1-51.0) % MCV 96.8 H (79.0-92.2) fl MCH 29.0 (25.7-32.2) pg MCHC 29.9 L (32.2-35.5) g/dl RDW Std Deviation 57.5 H (35.1-43.9) fL Plt Count 176 (163-337) K/mm3 MPV 9.6 (9.4-12.3) fl Neut % (Auto) 82.3 H (34.0-67.9) % Lymph % (Auto) 7.9 L (21.8-53.1) % Real % (Auto) 8.2 (5.3-12.2) % Eos % (Auto) 1.4 (0.8-7.0) Baso % (Auto) 0.2 (0.1-1.2) % Neut # (Auto) 5.33 (1.78-5.38) K/mm3 Lymph # (Auto) 0.51 L (1.32-3.57) K/mm3 Real # (Auto) 0.53 (0.30-0.82) K/mm3 Eos # (Auto) 0.09 (0.04-0.54) K/mm3 Baso # (Auto) 0.01 (0.01-0.08) K/mm3 Manual Slide Review Abnormal smear PT 15.1 H (9.7-12.0) SECONDS INR 1.42 Sodium 138 (136-145) mEq/L Potassium 3.2 L (3.5-5.1) mEq/L Chloride 101 (98-107) mEq/L Carbon Dioxide 27 (21-32) mEq/L Anion Gap 13.2 (5-15) BUN 25 H (7-18) mg/dL Creatinine 1.1 (0.7-1.3) mg/dL Est Cr Clr Drug Dosing 45.77 mL/min Estimated GFR (MDRD) > 60 (>60) mL/min BUN/Creatinine Ratio 22.7 H (14-18) Glucose 138 H (83-115) mg/dL POC Glucose (83-110) mg/dL Calcium 8.3 L (8.5-10.1) mg/dL 07/30/20 Range/Units 06:19 WBC (4.23-9.07) K/mm3 RBC (4.63-6.08) M/mm3 Hgb (13.7-17.5) gm/dl Hct (40.1-51.0) % MCV (79.0-92.2) fl MCH (25.7-32.2) pg MCHC (32.2-35.5) g/dl RDW Std Deviation (35.1-43.9) fL Plt Count (163-337) K/mm3 MPV (9.4-12.3) fl Neut % (Auto) (34.0-67.9) % Lymph % (Auto) (21.8-53.1) % Real % (Auto) (5.3-12.2) % Eos % (Auto) (0.8-7.0) Baso % (Auto) (0.1-1.2) % Neut # (Auto) (1.78-5.38) K/mm3 Lymph # (Auto) (1.32-3.57) K/mm3 Real # (Auto) (0.30-0.82) K/mm3 Eos # (Auto) (0.04-0.54) K/mm3 Baso # (Auto) (0.01-0.08) K/mm3 Manual Slide Review PT (9.7-12.0) SECONDS INR Sodium (136-145) mEq/L Potassium (3.5-5.1) mEq/L Chloride (98-107) mEq/L Carbon Dioxide (21-32) mEq/L Anion Gap (5-15) BUN (7-18) mg/dL Creatinine (0.7-1.3) mg/dL Est Cr Clr Drug Dosing mL/min Estimated GFR (MDRD) (>60) mL/min BUN/Creatinine Ratio (14-18) Glucose (83-115) mg/dL POC Glucose 147 H (83-110) mg/dL Calcium (8.5-10.1) mg/dL Jose Results Last 24 Hours: Microbiology 07/27/20 20:25 Aerobic Blood Culture - Preliminary Blood - Venous - Lab Draw NO GROWTH AFTER 2 DAYS Anaerobic Blood Culture - Preliminary NO GROWTH AFTER 2 DAYS 07/27/20 20:17 Aerobic Blood Culture - Preliminary Blood - Venous NO GROWTH AFTER 2 DAYS Anaerobic Blood Culture - Preliminary NO GROWTH AFTER 2 DAYS 07/27/20 22:05 Urine Culture - Final Urine, Bladder MIXED ROSEMARY SUGGESTIVE OF CONTAMINATION. Med Orders - Current: Current Medications Acetaminophen (Tylenol) 975 mg PO Q4H PRN PRN Reason: Pain/Fever Hydrocodone Bitart/Acetaminophen ([place] 325-5 Mg) 1 tab PO Q6H PRN PRN Reason: Pain (moderate 4-6) Benzocaine/Menthol (Cepacol Sore Throat) 1 lozenge MUCMEM Q1H PRN PRN Reason: sore throat Clopidogrel Bisulfate (Plavix) 75 mg PO BEDTIME [facility] Last Admin: 07/29/20 20:26 Dose: Not Given Documented by: Cyanocobalamin (Vitamin B12) 2,500 mcg PO DAILY [facility] Last Admin: 07/29/20 08:53 Dose: 2,500 mcg Documented by: Dextrose/Water (Dextrose 50% In Water) 50 ml IV ASDIRECTED PRN PRN Reason: Hypoglycemia Digoxin (Lanoxin) 125 mcg PO DAILY [facility] Last Admin: 07/29/20 08:55 Dose: 125 mcg Documented by: Diltiazem HCl (Dilacor Xr) 240 mg PO DAILY [facility] Last Admin: 07/29/20 08:52 Dose: 240 mg Documented by: Ferrous Sulfate (Ferrous Sulfate) 324 mg PO DAILY [facility] Last Admin: 07/29/20 08:53 Dose: 324 mg Documented by: Furosemide (Lasix) 80 mg PO BID [facility] Last Admin: 07/29/20 20:25 Dose: Not Given Documented by: Glipizide (Glucotrol) 5 mg PO BIDMEALS [facility] Last Admin: 07/30/20 06:23 Dose: 5 mg Documented by: Glucagon (Glucagen) 1 mg IM ASDIRECTED PRN PRN Reason: Hypoglycemia Insulin Human Regular (Humulin R) 0 unit SUBCUT [facility]; Protocol Last Admin: 07/29/20 18:18 Dose: 1 unit Documented by: Isosorbide Mononitrate (Imdur) 60 mg PO DAILY [facility] Last Admin: 07/29/20 08:52 Dose: 60 mg Documented by: Levothyroxine Sodium (Synthroid) 50 mcg PO ACBREAKFAST [facility] Last Admin: 07/30/20 06:23 Dose: 50 mcg Documented by: Loperamide HCl (Imodium) 2 mg PO ASDIRECTED PRN PRN Reason: Diarrhea Metolazone (Zaroxolyn) 2.5 mg PO MO [facility] Metoprolol Succinate (Toprol Xl) 100 mg PO BID [facility] Last Admin: 07/29/20 20:25 Dose: Not Given Documented by: Nitroglycerin (Nitrostat) 0.4 mg SL Q5M PRN PRN Reason: Chest Pain Ondansetron HCl (Zofran) 4 mg IVPUSH Q6HR PRN PRN Reason: Nausea/Vomiting Pantoprazole Sodium (Protonix) 40 mg PO DAILY [facility] Last Admin: 07/29/20 08:54 Dose: 40 mg Documented by: Potassium Chloride (Klor-Con M20) 20 meq PO DAILY [facility] Last Admin: 07/29/20 08:54 Dose: 20 meq Documented by: Rosuvastatin Calcium (Crestor) 10 mg PO DAILY [facility] Last Admin: 07/29/20 08:53 Dose: 10 mg Documented by: Senna (Senna) 8.6 mg PO DAILY PRN PRN Reason: Constipation Last Admin: 07/28/20 18:28 Dose: 8.6 mg Documented by: Sodium Chloride (Saline Flush) 10 ml FLUSH ASDIRECTED PRN PRN Reason: Keep Vein Open Last Admin: 07/27/20 20:17 Dose: 10 ml Documented by: Terazosin HCl (Hytrin) 5 mg PO DAILY [facility] Last Admin: 07/29/20 08:51 Dose: 5 mg Documented by: Warfarin Sodium (Coumadin) 4 mg PO 1800 [facility] Last Admin: 07/29/20 18:12 Dose: 4 mg Documented by: Discontinued Medications Sodium Chloride (Normal Saline) 1,000 mls @ 1,000 mls/hr IV .BOLUS [facility] Last Admin: 07/27/20 20:17 Dose: 1,000 mls/hr Documented by: Ceftriaxone Sodium 2 gm/ (Sodium Chloride) 100 mls @ 200 mls/hr IV Q24H [facility] Last Admin: 07/27/20 23:03 Dose: 200 mls/hr Documented by: Sodium Chloride (Normal Saline) 1,000 mls @ 100 mls/hr IV ASDIRECTED [facility] Last Admin: 07/27/20 23:03 Dose: 100 mls/hr Documented by: Ceftriaxone Sodium 2 gm/ (Sodium Chloride) 100 mls @ 200 mls/hr IV Q24H [facility] Sodium Chloride (Normal Saline) 1,000 mls @ 100 mls/hr IV ASDIRECTED [facility] Last Admin: 07/28/20 23:11 Dose: 100 mls/hr Documented by: Sodium Chloride (Normal Saline) 100 mls @ 75 mls/hr IV ASDIRECTED [facility] Stop: 07/29/20 14:00 Last Admin: 07/29/20 12:00 Dose: 75 mls/hr Documented by: Iopamidol (Isovue-370 (76%)) 100 ml IVPUSH ONETIME ONE Stop: 07/29/20 11:39 Last Admin: 07/29/20 12:00 Dose: 100 ml Documented by: Non-Formulary Medication (Aloe Vera/Sodium Chloride [[place] Saline Nasal Gel]) 1 applic TOP TID PRN PRN Reason: dry nose Non-Formulary Medication (Antiiva) 1 tab PO DAILY [facility] Last Admin: 07/28/20 16:27 Dose: Not Given Documented by: Sodium Chloride (Saline Flush) 10 ml FLUSH ONETIME PRN PRN Reason: IV FLUSH Stop: 07/29/20 14:00 Last Admin: 07/29/20 13:48 Dose: 10 ml Documented by: Terazosin HCl (Hytrin) 10 mg PO BEDTIME [facility] - Exam Quality Assessment: Supplemental Oxygen, DVT Prophylaxis General: Alert, Oriented HEENT: Pupils Equal, Pupils Reactive, EOMI. No: Mucous Membr. Moist/[place] (Edentulous, dry) Neck: Supple, Trachea Midline Lungs: Clear to Auscultation, Normal Respiratory Effort Cardiovascular: Regular Rate, Regular Rhythm GI/Abdominal Exam: Normal Bowel Sounds, Soft, No Distention (Male) Exam: Deferred Back Exam: Normal Inspection, Full Range of Motion Extremities: Normal Inspection, No Pedal Edema Skin: Warm, Dry, Intact Neurological: No New Focal Deficit Psy/Mental Status: Alert, Normal Affect, Agitated Sepsis Event Note - Evaluation Sepsis Screening Result: No Definite Risk - Focused Exam Vital Signs: Vital Signs Temp Pulse Resp BP Pulse Ox 07/30/20 03:52 36.6 C 81 18 127/71 93 L 07/29/20 23:23 75 149/57 H 96 07/29/20 23:22 36.8 C 86 19 153/68 H 95 - Problem List & Annotations (1) Generalized weakness SNOMED Code(s): 28735306 Code(s): R53.1 - WEAKNESS Status: Acute Priority: High Current Visit: Yes (2) Renal insufficiency SNOMED Code(s): 841405220, 448610281 Code(s): N28.9 - DISORDER OF KIDNEY AND URETER, UNSPECIFIED Status: Chronic Priority: Medium Current Visit: Yes (3) COPD (chronic obstructive pulmonary disease) SNOMED Code(s): 86709978 Code(s): J44.9 - CHRONIC OBSTRUCTIVE PULMONARY DISEASE, UNSPECIFIED Status: Chronic Priority: Medium Current Visit: No Qualifiers: COPD type: emphysema Emphysema type: unspecified Qualified Code(s): J43.9 - Emphysema, unspecified (4) Chronic renal insufficiency SNOMED Code(s): 448795300 Code(s): N18.9 - CHRONIC KIDNEY DISEASE, UNSPECIFIED Status: Chronic Priority: Medium Current Visit: Yes Qualifiers: Chronic kidney disease stage: stage 3 (moderate) (5) Diabetes mellitus SNOMED Code(s): 19346710 Code(s): E11.9 - TYPE 2 DIABETES MELLITUS WITHOUT COMPLICATIONS Status: Acute Current Visit: No (6) HTN, Benign essential hypertension SNOMED Code(s): 2953138 Code(s): I10 - ESSENTIAL (PRIMARY) HYPERTENSION Status: Acute Current Visit: No - Problem List Review Problem List Initiated/Reviewed/Updated: Yes - My Orders Last 24 Hours: My Active Orders 07/29/20 11:23 CTA Head W & W/O Contrast [Ang Head] [CT] Routine 08/02/20 09:00 metOLazone [Zaroxolyn] 2.5 mg PO MO - Plan Plan:: The patient is an 85-year-old gentleman who has been admitted secondary to weakness, inability to walk after flu shot. I cannot exclude Guillain-Sierra syndrome at this time. I have ordered PT OT to help with the patient to ambulate and work with ADLs. I have also ordered respiratory to conduct PFTs as well as assess breathing. He also be kept on oxygen as necessary to keep his saturations above 90%. The patient will have a diabetic diet as tolerated. He also be kept on insulin sliding scale with Accu-Cheks before meals and at bedtime. The patient has been LEIGHANN hose for DVT prophylaxis as the patient is at fall risk for SCDs and is currently on warfarin. Repeat laboratory studies have been ordered for the morning. The patient's home medications have been started. 07/29/2020 . The patient overall has improved somewhat today. Patient says that he has been having difficulty with weakness stable as well as some dizziness. 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 This is to exclude acute CVA. PT OT will continue to work with the patient. He will be kept on his diabetic diet as tolerated. The patient will also be kept on SCDs for DVT prophylaxis as he is currently taking Coumadin. I anticipate the patient being discharged tomorrow. 07/30/2020 The patient is an 85-year-old gentleman who is doing somewhat better. He is not happy that he had a fever last night. Because of the patient's dizziness and "not feeling right" and prior CVA a CTA of his head was ordered and this did not show any new infarct. The patient has been recommended to continue with his diabetic diet as tolerated. He will also have SCDs for DVT prophylaxis as he is currently on Coumadin. Laboratory studies have been ordered. Patient should be appropriate for discharge tomorrow.
[2020-07-30] MEDS: Cyanocobalamin (Vitamin B12) 1,000 MCG Tab PO SCH (09:46)
[2020-07-30] MEDS ORDERED: Furosemide 80 MG Tab PO ONE (09:48)
[2020-07-30] MEDS: Ferrous Sulfate 324 MG Tab.EC PO SCH (09:50)
[2020-07-30] MEDS: Pantoprazole 40 MG Tab.CR PO SCH (09:50)
[2020-07-30] MEDS: Terazosin 5 MG Cap PO SCH (09:51)
[2020-07-30] MEDS: Potassium Chloride 20 MEQ Tab.ER PO SCH (09:51)
[2020-07-30] MEDS: Diltiazem 240 MG Cap.ER PO SCH (09:52)
[2020-07-30] MEDS: Rosuvastatin 10 MG Tab PO SCH (09:52)
[2020-07-30] MEDS: Isosorbide Mononitrate 60 MG Tab.ER PO SCH (09:52)
[2020-07-30] MEDS: Digoxin 125 MCG Tab PO SCH (09:54)
[2020-07-30] MEDS: Metoprolol Succinate 50 MG Tab.ER PO SCH ×2 (09:55→20:20)
[2020-07-30] MEDS: Insulin Regular, Human 100 Units/ML 3 ML Vial SUBCUT SCH ×3 (10:14→20:24)
[2020-07-30] MEDS: Furosemide 80 MG Tab PO SCH (14:14)
[2020-07-30] MEDS ORDERED: Warfarin 3 MG Tab PO SCH (18:00)
[2020-07-30] MEDS: Clopidogrel 75 MG Tab PO SCH (20:21)
[2020-07-31] MEDS: Furosemide 80 MG Tab PO SCH (06:25)
[2020-07-31] MEDS: Levothyroxine 50 MCG Tab PO SCH (06:25)
--- NOTE | 2020-07-31 07:24 | PCM.DCSUM1 ---
Discharge Summary - Hospital Course HPI Initial Comments: The patient was admitted out of concern for weakness and fatigue. Diagnosis: Stroke: No - Discharge Data Discharge Date: 07/31/20 Discharge Disposition: DC/Tfer to SNF 03 Condition: Fair - Referral to Home Health Primary Care Physician: Ganesh Luo MD - Discharge Diagnosis/Problem(s) (1) Generalized weakness SNOMED Code(s): 70646712 ICD Code: R53.1 - WEAKNESS Status: Chronic Priority: High (2) Renal insufficiency SNOMED Code(s): 987799625, 167252113 ICD Code: N28.9 - DISORDER OF KIDNEY AND URETER, UNSPECIFIED Status: Chronic Priority: Medium (3) COPD (chronic obstructive pulmonary disease) SNOMED Code(s): 47052205 ICD Code: J44.9 - CHRONIC OBSTRUCTIVE PULMONARY DISEASE, UNSPECIFIED Status: Chronic Priority: Medium Qualifiers: COPD type: emphysema Emphysema type: unspecified Qualified Code(s): J43.9 - Emphysema, unspecified (4) Chronic renal insufficiency SNOMED Code(s): 618331947 ICD Code: N18.9 - CHRONIC KIDNEY DISEASE, UNSPECIFIED Status: Chronic Priority: Medium Qualifiers: Chronic kidney disease stage: stage 3 (moderate) (5) Diabetes mellitus SNOMED Code(s): 10229769 ICD Code: E11.9 - TYPE 2 DIABETES MELLITUS WITHOUT COMPLICATIONS Status: Chronic (6) HTN, Benign essential hypertension SNOMED Code(s): 2592663 ICD Code: I10 - ESSENTIAL (PRIMARY) HYPERTENSION Status: Chronic Priority: Medium - Patient Summary/Data Consults: Consultations 07/28/20 07:43 OT Evaluation and Treatment [CONS] Routine PT Evaluation and Treatment [CONS] Routine 07/28/20 08:14 Consult to Respiratory Therapy [Respiratory Care Assess and Treatment] [CONS] Routine Hospital Course: The patient is an 85-year-old gentleman who is admitted from long-term out of concern for urinary tract infection and confusion. The patient had reported that he had a flu shot and started having symptoms shortly after that. Patient said that he was doing fine initially. He started to get weak and having episodes where he was unable to get out of his chair. Patient also had not been eating very well. Patient was noted to have a significant heart disease history to include bypass surgery, stenting and pacemaker. The patient had been evaluated by PT OT as well as respiratory and have a PFT. This was done out of concern for possible Guillain-Sierra syndrome. This was excluded. The patient was also noted to be anemic with a hemoglobin around 8.2 g/dL. He did not require transfusion. The patient was kept on his home dose of warfarin as well as his Lasix. Patient also initially had been started on Rocephin but the patient was determined not to have a urinary tract infection and this was discontinued. The patient continued to improve and because of temperature the patient was retained 1 extra day in hospitalization. The patient continued to improve to the point that he did not require oxygen supplementation. The patient should continue with activity as tolerated as well as physical therapy at his long-term. The patient was not sent home on any new medication. The patient was maintained in a DO NOT INTUBATE/DO NOT RESUSCITATE category. The patient is also recommended to have diabetic diet as tolerated. Date of discharge the patient is also retested for COVID-19 and this test was negative. The patient had been hemodynamically stable and he has been discharged from acute hospitalization with the recommendations listed above. - Patient Instructions Diet: Diabetic Diet Activity: As Tolerated Notify Provider of: Fever, Increased Pain - Discharge Plan *PRESCRIPTION DRUG MONITORING PROGRAM REVIEWED*: No *COPY OF PRESCRIPTION DRUG MONITORING REPORT IN PATIENT RICHELLE: No Home Medications: Home Meds Digoxin [Lanoxin] 125 mcg PO DAILY 06/27/15 [History] Furosemide [Lasix] 80 mg PO BID 06/27/15 [History] Insulin Glarg,Human.Rec.Analog [LantUS Solostar] 50 units SUBCUT DAILY 06/27/15 [History] Metoprolol Succinate [Toprol XL] 100 mg PO BID 06/27/15 [History] dilTIAZem HCL [Diltiazem 24Hr ER (LA)] 240 mg PO DAILY 06/27/15 [History] Nitroglycerin [Nitrostat] 0.4 mg SL Q5M PRN 09/08/16 [History] Cyanocobalamin (Vitamin B-12) [Vitamin B-12] 2,500 mcg PO DAILY 06/12/17 [History] Isosorbide Mononitrate [Imdur] 60 mg PO DAILY 06/12/17 [History] atorvaSTATin [Lipitor] 40 mg PO DAILY 06/12/17 [History] Antiiva 1 tab PO DAILY 01/12/18 [History] Omeprazole 20 mg PO DAILY 01/12/18 [History] Acetaminophen [Tylenol] 650 mg PO Q4H PRN 07/27/20 [History] Aloe Vera/Sodium Chloride [[place] Saline Nasal Gel] 1 applic TOP TID PRN 07/27/20 [History] Benzocaine/Menthol [Cepacol Sore Throat Lozenge] 1 tab PO Q1H PRN 07/27/20 [History] Diabetic Nerve Rejuvenator 1 tab PO BID 07/27/20 [History] Ferrous Sulfate 324 mg PO DAILY 07/27/20 [History] Hydrocodone/Acetaminophen [Hydrocodone-Acetamin 5-325 mg] 1 tab PO Q6H PRN 07/27/20 [History] Levothyroxine [Synthroid] 50 mcg PO DAILY 07/27/20 [History] Loperamide [Imodium] 2 mg PO ASDIRECTED PRN 07/27/20 [History] Potassium Chloride 20 meq PO DAILY 07/27/20 [History] Sennosides [Senna] 8.6 mg PO DAILY PRN 07/27/20 [History] Terazosin [Hytrin] 5 mg PO DAILY 07/27/20 [History] Terazosin [Hytrin] 10 mg PO BEDTIME 07/27/20 [History] Warfarin [Coumadin] 4 mg PO 1200 07/27/20 [History] guaiFENesin/Dextromethorphan [Tussin Dm Liquid] 10 ml PO Q4H PRN 07/27/20 [History] metOLazone [Metolazone] 2.5 mg PO MO 07/27/20 [History] Clopidogrel [Plavix] 75 mg PO BEDTIME 07/28/20 [History] glipiZIDE [Glucotrol] 5 mg PO BIDMEALS 07/28/20 [History] Oxygen Therapy Mode: Room Air Patient Handouts: Type 2 Diabetes Mellitus, Diagnosis, Adult, Sepsis, Diagnosis, Adult Referrals: Ganesh Luo MD [Primary Care Provider] - - Discharge Summary/Plan Comment DC Time >30 min.: Yes - General Info Date of Service: 07/31/20 Admission Dx/Problem (Free Text: Admission Diagnosis/Problem Admission Diagnosis/Problem Generalized weakness Subjective Update: The patient says that he feels better today. He also feels like he can safely go home. Functional Status: Reports: Pain Controlled, Tolerating Diet - Review of Systems General: Reports: Weakness HEENT: Reports: No Symptoms Pulmonary: Reports: No Symptoms Cardiovascular: Reports: No Symptoms Gastrointestinal: Reports: No Symptoms Genitourinary: Reports: No Symptoms Musculoskeletal: Reports: No Symptoms Skin: Reports: No Symptoms Neurological: Reports: No Symptoms Psychiatric: Reports: No Symptoms - Patient Data Vitals - Most Recent: Last Vital Signs Temp 37.8 C 07/31/20 04:25 Pulse 76 07/31/20 03:48 Resp 18 07/31/20 03:48 BP 103/53 L 07/31/20 03:48 Pulse Ox 91 L 07/31/20 03:48 Weight - Most Recent: 83.915 kg I&O - Last 24 hours: Intake & Output 07/30/20 07/31/20 07/31/20 22:59 06:59 14:59 Intake Total 1960 600 Output Total 1025 925 Balance 935 -325 Lab Results - Last 24 hrs: Laboratory Results - last 24 hr 07/30/20 07/30/20 07/30/20 Range/Units 11:15 18:08 22:43 WBC (4.23-9.07) K/mm3 RBC (4.63-6.08) M/mm3 Hgb (13.7-17.5) gm/dl Hct (40.1-51.0) % MCV (79.0-92.2) fl MCH (25.7-32.2) pg MCHC (32.2-35.5) g/dl RDW Std Deviation (35.1-43.9) fL Plt Count (163-337) K/mm3 MPV (9.4-12.3) fl Neut % (Auto) (34.0-67.9) % Lymph % (Auto) (21.8-53.1) % Lassen % (Auto) (5.3-12.2) % Eos % (Auto) (0.8-7.0) Baso % (Auto) (0.1-1.2) % Neut # (Auto) (1.78-5.38) K/mm3 Lymph # (Auto) (1.32-3.57) K/mm3 Lassen # (Auto) (0.30-0.82) K/mm3 Eos # (Auto) (0.04-0.54) K/mm3 Baso # (Auto) (0.01-0.08) K/mm3 POC Glucose 218 H 177 H 126 H (83-110) mg/dL 07/31/20 07/31/20 Range/Units 06:09 06:24 WBC 6.39 (4.23-9.07) K/mm3 RBC 2.69 L (4.63-6.08) M/mm3 Hgb 8.0 L (13.7-17.5) gm/dl Hct 26.1 L (40.1-51.0) % MCV 97.0 H (79.0-92.2) fl MCH 29.7 (25.7-32.2) pg MCHC 30.7 L (32.2-35.5) g/dl RDW Std Deviation 56.6 H (35.1-43.9) fL Plt Count 177 (163-337) K/mm3 MPV 9.6 (9.4-12.3) fl Neut % (Auto) 78.3 H (34.0-67.9) % Lymph % (Auto) 10.5 L (21.8-53.1) % Lassen % (Auto) 10.2 (5.3-12.2) % Eos % (Auto) 0.6 L (0.8-7.0) Baso % (Auto) 0.2 (0.1-1.2) % Neut # (Auto) 5.01 (1.78-5.38) K/mm3 Lymph # (Auto) 0.67 L (1.32-3.57) K/mm3 Lassen # (Auto) 0.65 (0.30-0.82) K/mm3 Eos # (Auto) 0.04 (0.04-0.54) K/mm3 Baso # (Auto) 0.01 (0.01-0.08) K/mm3 POC Glucose 127 H (83-110) mg/dL EMERALD Results - Last 24 hrs: Microbiology 07/27/20 20:25 Aerobic Blood Culture - Preliminary Blood - Venous - Lab Draw NO GROWTH AFTER 3 DAYS Anaerobic Blood Culture - Preliminary NO GROWTH AFTER 3 DAYS 07/27/20 20:17 Aerobic Blood Culture - Preliminary Blood - Venous NO GROWTH AFTER 3 DAYS Anaerobic Blood Culture - Preliminary NO GROWTH AFTER 3 DAYS Med Orders - Current: Current Medications Acetaminophen (Tylenol) 975 mg PO Q4H PRN PRN Reason: Pain/Fever Hydrocodone Bitart/Acetaminophen ([place] 325-5 Mg) 1 tab PO Q6H PRN PRN Reason: Pain (moderate 4-6) Benzocaine/Menthol (Cepacol Sore Throat) 1 lozenge MUCMEM Q1H PRN PRN Reason: sore throat Clopidogrel Bisulfate (Plavix) 75 mg PO BEDTIME [facility] Last Admin: 07/30/20 20:21 Dose: 75 mg Documented by: Cyanocobalamin (Vitamin B12) 2,500 mcg PO DAILY [facility] Last Admin: 07/30/20 09:46 Dose: 2,500 mcg Documented by: Dextrose/Water (Dextrose 50% In Water) 50 ml IV ASDIRECTED PRN PRN Reason: Hypoglycemia Digoxin (Lanoxin) 125 mcg PO DAILY [facility] Last Admin: 07/30/20 09:54 Dose: 125 mcg Documented by: Diltiazem HCl (Dilacor Xr) 240 mg PO DAILY [facility] Last Admin: 07/30/20 09:52 Dose: 240 mg Documented by: Ferrous Sulfate (Ferrous Sulfate) 324 mg PO DAILY [facility] Last Admin: 07/30/20 09:50 Dose: 324 mg Documented by: Furosemide (Lasix) 80 mg PO BIDDIURETIC [facility] Last Admin: 07/31/20 06:25 Dose: 80 mg Documented by: Glipizide (Glucotrol) 5 mg PO BIDMEALS [facility] Last Admin: 07/30/20 18:05 Dose: 5 mg Documented by: Glucagon (Glucagen) 1 mg IM ASDIRECTED PRN PRN Reason: Hypoglycemia Insulin Human Regular (Humulin R) [facility]; Protocol Last Admin: 07/30/20 20:24 Dose: 1 unit Documented by: Isosorbide Mononitrate (Imdur) 60 mg PO DAILY [facility] Last Admin: 07/30/20 09:52 Dose: 60 mg Documented by: Levothyroxine Sodium (Synthroid) 50 mcg PO ACBREAKFAST [facility] Last Admin: 07/31/20 06:25 Dose: 50 mcg Documented by: Loperamide HCl (Imodium) 2 mg PO ASDIRECTED PRN PRN Reason: Diarrhea Metolazone (Zaroxolyn) 2.5 mg PO MO [facility] Metoprolol Succinate (Toprol Xl) 100 mg PO BID [facility] Last Admin: 07/30/20 20:20 Dose: 100 mg Documented by: Nitroglycerin (Nitrostat) 0.4 mg SL Q5M PRN PRN Reason: Chest Pain Ondansetron HCl (Zofran) 4 mg IVPUSH Q6HR PRN PRN Reason: Nausea/Vomiting Pantoprazole Sodium (Protonix) 40 mg PO DAILY [facility] Last Admin: 07/30/20 09:50 Dose: 40 mg Documented by: Potassium Chloride (Klor-Con M20) 20 meq PO DAILY [facility] Last Admin: 07/30/20 09:51 Dose: 20 meq Documented by: Rosuvastatin Calcium (Crestor) 10 mg PO DAILY [facility] Last Admin: 07/30/20 09:52 Dose: 10 mg Documented by: Senna (Senna) 8.6 mg PO DAILY PRN PRN Reason: Constipation Last Admin: 07/28/20 18:28 Dose: 8.6 mg Documented by: Sodium Chloride (Saline Flush) 10 ml FLUSH ASDIRECTED PRN PRN Reason: Keep Vein Open Last Admin: 07/27/20 20:17 Dose: 10 ml Documented by: Terazosin HCl (Hytrin) 5 mg PO DAILY [facility] Last Admin: 07/30/20 09:51 Dose: 5 mg Documented by: Warfarin Sodium (Pharmacy To Dose - Warfarin) 0 dose PO ASDIRECTED PRN PRN Reason: RX TO DOSE WARFARIN Discontinued Medications Furosemide (Lasix) 80 mg PO BID [facility] Last Admin: 07/29/20 20:25 Dose: Not Given Documented by: Furosemide (Lasix) 80 mg PO ONETIME ONE Stop: 07/30/20 09:49 Last Admin: 07/30/20 10:01 Dose: 80 mg Documented by: Sodium Chloride (Normal Saline) 1,000 mls @ 1,000 mls/hr IV .BOLUS [facility] Last Admin: 07/27/20 20:17 Dose: 1,000 mls/hr Documented by: Ceftriaxone Sodium 2 gm/ (Sodium Chloride) 100 mls @ 200 mls/hr IV Q24H [facility] Last Admin: 07/27/20 23:03 Dose: 200 mls/hr Documented by: Sodium Chloride (Normal Saline) 1,000 mls @ 100 mls/hr IV ASDIRECTED [facility] Last Admin: 07/27/20 23:03 Dose: 100 mls/hr Documented by: Ceftriaxone Sodium 2 gm/ (Sodium Chloride) 100 mls @ 200 mls/hr IV Q24H [facility] Sodium Chloride (Normal Saline) 1,000 mls @ 100 mls/hr IV ASDIRECTED [facility] Last Admin: 07/28/20 23:11 Dose: 100 mls/hr Documented by: Sodium Chloride (Normal Saline) 100 mls @ 75 mls/hr IV ASDIRECTED REAL Stop: 07/29/20 14:00 Last Admin: 07/29/20 12:00 Dose: 75 mls/hr Documented by: Iopamidol (Isovue-370 (76%)) 100 ml IVPUSH ONETIME ONE Stop: 07/29/20 11:39 Last Admin: 07/29/20 12:00 Dose: 100 ml Documented by: Non-Formulary Medication (Aloe Vera/Sodium Chloride [[place] Saline Nasal Gel]) 1 applic TOP TID PRN PRN Reason: dry nose Non-Formulary Medication (Antiiva) 1 tab PO DAILY [facility] Last Admin: 07/28/20 16:27 Dose: Not Given Documented by: Sodium Chloride (Saline Flush) 10 ml FLUSH ONETIME PRN PRN Reason: IV FLUSH Stop: 07/29/20 14:00 Last Admin: 07/29/20 13:48 Dose: 10 ml Documented by: Terazosin HCl (Hytrin) 10 mg PO BEDTIME [facility] Warfarin Sodium (Coumadin) 4 mg PO 1800 [facility] Last Admin: 07/29/20 18:12 Dose: 4 mg Documented by: Warfarin Sodium (Coumadin) 6 mg PO QPM [facility] Stop: 07/30/20 18:01 Last Admin: 07/30/20 18:05 Dose: 6 mg Documented by: - Exam Quality Assessment: Reports: Supplemental Oxygen, DVT Prophylaxis (On home warfarin, keep INR between 2 and 3.) General: Reports: Alert, Oriented, Cooperative HEENT: Reports: Pupils Equal, Pupils Reactive, EOMI. Denies: Mucous Membr. Moist/Crucible (Edentulous, dry) Neck: Reports: Supple, Trachea Midline Lungs: Reports: Clear to Auscultation, Normal Respiratory Effort Cardiovascular: Reports: Regular Rate, Irregular Rhythm, Murmurs, Other (Pacemaker) GI/Abdominal Exam: Normal Bowel Sounds, Soft, No Distention (Male) Exam: Deferred Rectal (Males) Exam: Deferred Back Exam: Reports: Normal Inspection, Full Range of Motion Extremities: Normal Inspection, Normal Range of Motion, No Pedal Edema Skin: Reports: Warm, Dry, Intact Neurological: Reports: No New Focal Deficit Psy/Mental Status: Reports: Alert, Normal Affect, Normal Mood *Q Meaningful Use (DIS) - VTE *Q VTE Mechanical Contraindications *Q: At Risk for Falls VTE Pharmacological Contraindications *Q: Risk of Bleeding
[2020-07-31 08:25] VITALS: BP 121/54; PULSE 74
[2020-07-31] MEDS: Rosuvastatin 10 MG Tab PO SCH (08:34)
[2020-07-31] MEDS: Pantoprazole 40 MG Tab.CR PO SCH (08:34)
[2020-07-31] MEDS: Cyanocobalamin (Vitamin B12) 1,000 MCG Tab PO SCH (08:34)
[2020-07-31] MEDS: Metoprolol Succinate 50 MG Tab.ER PO SCH (08:35)
[2020-07-31] MEDS: Digoxin 125 MCG Tab PO SCH (08:35)
[2020-07-31] MEDS: Ferrous Sulfate 324 MG Tab.EC PO SCH (08:35)
[2020-07-31] MEDS: Diltiazem 240 MG Cap.ER PO SCH (08:35)
[2020-07-31] MEDS: Potassium Chloride 20 MEQ Tab.ER PO SCH (08:35)
[2020-07-31] MEDS: Isosorbide Mononitrate 60 MG Tab.ER PO SCH (08:35)
[2020-07-31] MEDS: glipiZIDE 5 MG Tab PO SCH (08:36)
[2020-07-31] MEDS: Insulin Regular, Human 100 Units/ML 3 ML Vial SUBCUT SCH (08:37)
[2020-07-31] MEDS: Terazosin 5 MG Cap PO SCH (08:37)
[2020-07-31] MEDS ORDERED: Warfarin 3 MG Tab PO SCH (18:00)
[2020-08-02] MEDS ORDERED: Metolazone 2.5 MG Tab PO SCH (09:00)
--- NOTE | 2020-08-04 12:59 | CR ---
PROCEDURE INFORMATION: Exam: XR Chest, 1 View Exam date and time: 07/27/2020 8:01 PM Age: 85 years old Clinical indication: Chest pain TECHNIQUE: Imaging protocol: XR of the chest Views: 1 view. COMPARISON: CT Chest w Cont 02/05/2019 11:08 AM FINDINGS: Lungs: No acute lung infiltrates or edema. Pleural space: No pleural effusions. Heart/Mediastinum: Moderate cardiomegaly. Previous open-heart surgery. Left chest pacemaker. Bones/joints: Unremarkable. IMPRESSION: 1. No lung infiltrates or edema. 2. Cardiomegaly. Pacemaker. Previous open-heart surgery. Thank you for allowing us to participate in the care of your patient. Dictated and Authenticated by: Keven Samayoa MD 07/27/2020 10:12 PM Central Time ([place] & [place]) [facility]
--- NOTE | 2020-08-05 10:13 | CT ---
"PROCEDURE INFORMATION: Exam: CT Angiography Head Without And With Contrast Exam date and time: 07/29/2020 11:48 AM Age: 85 years old Clinical indication: Dizziness and giddiness; Patient HX: Dizziness also sent head CT done today; Additional info: Prior report in images done today also sending cow CT TECHNIQUE: Imaging protocol: Computed tomographic angiography of the head without and with intravenous contrast. 3D rendering (Not supervised by radiologist): MIP and/or 3D reconstructed images were created by the technologist. Radiation optimization: All CT scans at this facility use at least one of these dose optimization techniques: automated exposure control; mA and/or kV adjustment per patient size (includes targeted exams where dose is matched to clinical indication); or iterative reconstruction. Contrast material: ISOVUE 370; Contrast volume: 100 ml; Contrast route: INTRAVENOUS (IV); COMPARISON: CT Head wo Cont 02/05/2019 10:33 AM FINDINGS: ANTERIOR CIRCULATION: Right internal carotid artery: Intracranial segment is patent with no significant stenosis or occlusion. No aneurysm. Right middle cerebral artery: An old area encephalomalacia is seen in the right parietooccipital lobe in the region of the posterior branches of the right middle cerebral artery. Right anterior cerebral artery: No occlusion or significant stenosis. No aneurysm. Left internal carotid artery: Intracranial segment is patent with no significant stenosis. No aneurysm. Left middle cerebral artery: No occlusion or significant stenosis. No aneurysm. Left anterior cerebral artery: No occlusion or significant stenosis. No aneurysm. ASHISHGUME | Final Radiology Report CONFIDENTIALITY STATEMENT This report is intended only for use by the referring physician, and only in accordance with law. If you received this in error, call [phone]. Page 2 of 2 POSTERIOR CIRCULATION: Right vertebral artery: No occlusion or significant stenosis. No aneurysm. Left vertebral artery: No occlusion or significant stenosis. No aneurysm. Basilar artery: No occlusion or significant stenosis. No aneurysm. Right posterior cerebral artery: No occlusion or significant stenosis. No aneurysm. Left posterior cerebral artery: No occlusion or significant stenosis. No aneurysm. HEAD: Brain: Unremarkable. No acute intracranial hemorrhage. No significant white matter disease. No edema. Cerebral ventricles: Normal. No ventriculomegaly. Bones/joints: Unremarkable. No acute fracture. Paranasal sinuses: Visualized sinuses are normal. No fluid levels. Mastoid air cells: Visualized mastoids are normal. No mastoid effusion. Soft tissues: Unremarkable. IMPRESSION: No acute vascular abnormality is identified. 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 Thank you for allowing us to participate in the care of your patient. Dictated and Authenticated by: Lalo Arvizu MD 07/29/2020 2:35 PM Central Time ([place] & [place]) [facility]"
--- NOTE | 2020-08-05 10:14 | CT ---
"PROCEDURE INFORMATION: Exam: CT Head Without Contrast Exam date and time: 07/29/2020 11:48 AM Age: 85 years old Clinical indication: Patient HX: Dizziness on anticoagulants; Additional info: Prior report in images done today also sending cow CT TECHNIQUE: Imaging protocol: Computed tomography of the head without contrast. Radiation optimization: All CT scans at this facility use at least one of these dose optimization techniques: automated exposure control; mA and/or kV adjustment per patient size (includes targeted exams where dose is matched to clinical indication); or iterative reconstruction. COMPARISON: CT Head wo Cont 02/05/2019 10:33 AM FINDINGS: Brain: There is no evidence of acute hemorrhage within the brain parenchyma or the subarachnoid space. There is a large area of encephalomalacia in the right parietooccipital region similar to the prior study. There is moderate cerebral atrophy. Cerebral ventricles: The ventricular system demonstrates moderate diffuse compensatory enlargement. There is no significant ventricular effacement or midline shift. Bones/joints: The skull is normal. Paranasal sinuses: The visualized portions of the sinuses are normal. Mastoid air cells: The mastoid sinuses are normal. Orbital cavity: The orbits are normal. There is asymmetric density of the lenses consistent with intraocular lens prosthesis. Soft tissues: The extracranial soft tissues are normal. 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 Thank you for allowing us to participate in the care of your patient. ASHISHGUME | Final Radiology Report CONFIDENTIALITY STATEMENT This report is intended only for use by the referring physician, and only in accordance with law. If you received this in error, call [phone]. Page 2 of 2 Dictated and Authenticated by: Lalo Arvizu MD 07/29/2020 2:28 PM Central Time ([place] & [place]) [facility]"
== END 2020-07-31 09:50 | DRG 948 ==
LOC: JD.ED 19:41 → JD.MS 23:57 → OBSVTOIN 07-28 11:14 → JD.MS 07-28 12:48
PROVIDERS: ADMIT Internal Medicine; ATTEND Internal Medicine
DX: N30.00 Acute cystitis without hematuria (principal); R53.1 Weakness; I13.0 Hypertensive heart and chronic kidney disease with heart failure and stage 1 through stage 4 chronic kidney disease, or unspecified chronic kidney disease; J43.9 Emphysema, unspecified; I13.10 Hypertensive heart and chronic kidney disease without heart failure, with stage 1 through stage 4 chronic kidney disease, or unspecified chronic kidney disease; N18.9 Chronic kidney disease, unspecified; E78.00 Pure hypercholesterolemia, unspecified; Z66 Do not resuscitate; Z95.5 Presence of coronary angioplasty implant and graft; I73.9 Peripheral vascular disease, unspecified; G47.30 Sleep apnea, unspecified; Z95.1 Presence of aortocoronary bypass graft; Z95.0 Presence of cardiac pacemaker; K57.90 Diverticulosis of intestine, part unspecified, without perforation or abscess without bleeding; E11.9 Type 2 diabetes mellitus without complications; Z85.820 Personal history of malignant melanoma of skin; E11.22 Type 2 diabetes mellitus with diabetic chronic kidney disease; Z91.040 Latex allergy status; Z88.8 Allergy status to other drugs, medicaments and biological substances; Z91.048 Other nonmedicinal substance allergy status; N18.30 Chronic kidney disease, stage 3 unspecified; Z79.890 Hormone replacement therapy; Z79.4 Long term (current) use of insulin; Z79.899 Other long term (current) drug therapy; I25.10 Atherosclerotic heart disease of native coronary artery without angina pectoris; I48.91 Unspecified atrial fibrillation; Z79.01 Long term (current) use of anticoagulants; E78.5 Hyperlipidemia, unspecified; I25.2 Old myocardial infarction; I50.9 Heart failure, unspecified; G47.33 Obstructive sleep apnea (adult) (pediatric); Z87.01 Personal history of pneumonia (recurrent); Z86.010 Personal history of colon polyps; N40.0 Benign prostatic hyperplasia without lower urinary tract symptoms; Z86.73 Personal history of transient ischemic attack (TIA), and cerebral infarction without residual deficits; Z20.828 Contact with and (suspected) exposure to other viral communicable diseases
CPT/HCPCS: 36415 ×2; 71045; 80053; 81001; 82728; 82962; 83605 ×2; 83615; 85025; 85379; 85610; 86140; 87040 ×2; 87086; 87641; 87804 ×2; 96361; 96365; 97165; 97530; 97535; 99285; A9270 ×2; G0378 ×2; J0696; J1815 ×2; J7030 ×2; J7050; U0002; 70450; 70450-26; 70496; 70496-26; 80048; 94060; 97116-GP; 97161-GP; 99222; 99232; 99239; 99284; Q9967